=== PATIENT | male | born 1960 | race Caucasian/White ===

== ENCOUNTER 2023-01-29 08:37 | Outpatient (AMB) | payer MEDICARE, MEDICAID, SELFPAY ==
--- NOTE | 2023-01-29 08:40 | A.OFFVIS_ITS ---
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 Patient reports pain fell about 10 feet on right side ~2010. He was suppose to have surgery on his left shoulder but surgeon in [place] decided to not move forward due to heart condition. He is seen by pain management where he is prescribed oxycodone that provides him pain relief. The patient has is not interested in getting MRI or discussing the possibility of future surgeries. He states that he is too old to undergo surgery. He does not wish to go to formal physical therapy. The patient's questions whether I can recommend that he get more pain medicine . Allergies No Known Allergies [No Known Allergies*] Allergy (Unverified 12/24/19 16:44) [facility] Surgical History (Updated 01/29/23 @ 09:06 by HARIKA Vazquez) History of back surgery Social History (Updated 01/29/23 @ 09:05 by HARIKA Vazquez) Patient Tobacco Use Status: Current everyday Tobacco user Current occupational status: unemployed Physical Exam Extrem Other: Bilateral shoulder examination shows forward flexion to 160 degrees, external rotation to 40 degrees, internal rotation to level L2, 4+ out of 5 strength with supraspinatus testing, positive impingement signs, no instability Results Reviewed Results Reviewed: X-rays of the patient's bilateral shoulder show acromioclavicular joint narrowing, type 2 acromion, no acute bony abnormalities Assessment & Plan Assessment & Plan (1) Right shoulder pain: Code(s): M25.511 - Pain in right shoulder Plan: Mr. Cipriano Monique presents with bilateral shoulder pains due to impingement syndrome and rotator cuff tendinosis versus possible rotator cuff tearing. I had a lengthy discussion with patient regarding the treatment options. He is not interested in getting an MRI or discussing the possibility of surgery in the future. He does not wish to go to formal physical therapy. I did put in a referral to the Pain Management group here at [facility] per his request. I discussed with the patient's at length the fact that I do not p rescribe narcotic pain medicine for non operative problems and that I have no control over how much pain medicine is prescribed to him by another provider. That being said, I have no problem with the patient being continued on pain medicine if it gives him relief. Feel free to call me at any time should questions regarding his orthopedic management arise. I spent 22 minutes in reviewing the patient's records and imaging studies, seeing the patient and documenting in the medical record. (2) Left shoulder pain: Code(s): M25.512 - Pain in left shoulder Orders: Orders XR shoulder RT min 2V Today M25.511 - Pain in right shoulder XR shoulder LT min 2V Today M25.512 - Pain in left shoulder Referrals Pain Management Referral M25.511 - Pain in right shoulder, M25.512 - Pain in left shoulder, M54.2 - Cervicalgia, M54.50 - Low back pain, unspecified Coding Level of Care Code New Pt Level 2 (46601) Diagnoses Right shoulder pain M25.511 Left shoulder pain M25.512
== END 2023-01-29 09:26 | disposition home or self-care (01) ==
PROVIDERS: PCP Internal Medicine Geriatric Medicine; Visit Provider Orthopaedic Surgery
DX: M25.511 Pain in right shoulder (principal); M25.512 Pain in left shoulder
CPT/HCPCS: 99202

== ENCOUNTER 2023-01-29 17:15 | Outpatient (REF) | payer MEDICARE, MEDICAID, SELFPAY ==
--- NOTE | ~2023-01-29 | XR_ITS ---
EXAMINATION: XR SHOULDER, LEFT CLINICAL INFORMATION: Pain in left shoulder COMPARISON: None available. TECHNIQUE: AP external rotation, Grashey, scapular Y, and axillary views of the left shoulder. FINDINGS: The bones and soft tissues are normal. No fracture. Glenohumeral and acromioclavicular alignment is anatomic with normal joint space. No abnormal soft tissue calcifications. XR/XR shoulder LT min 2V IMPRESSION: Normal left shoulder.
--- NOTE | ~2023-01-29 | XR_ITS ---
EXAMINATION: XR SHOULDER, RIGHT CLINICAL INFORMATION: Right shoulder pain COMPARISON: None available. TECHNIQUE: 2 views of right shoulder including neutral and Y view. FINDINGS: There are mild degenerative changes in the right glenohumeral joint with subchondral sclerosis and marginal spurring of the glenoid. There are mild changes of osteoarthritis of the right acromioclavicular joint with spurring. There is no fracture or dislocation. XR/XR shoulder RT min 2V IMPRESSION: Mild degenerative changes
== END 2023-01-29 17:16 | disposition home or self-care (01) ==
LOC: HO.HOSX 17:15
PROVIDERS: Visit Provider Orthopaedic Surgery
DX: M25.511 Pain in right shoulder (principal); M25.512 Pain in left shoulder
CPT/HCPCS: 73030; 99202

== ENCOUNTER 2023-03-14 09:10 | Outpatient (REF) | payer MEDICARE, MEDICAID, SELFPAY ==
[2023-03-14 11:30] LABS: MANUAL DIFF FLAG NO
[2023-03-14 11:44] LABS: Basophils Absolute Auto 0.1 X10*3/uL (0.0-0.2); Basophils Percent Auto 0.4 % (0-2); Eosinophils Absolute Auto 0.3 X10*3/uL (0.0-0.4); Eosinophils Percent Auto 2.4 % (0-4); Hematocrit 40.1 % (42.0-52.0); Hemoglobin 13.4 g/dl (14.0-18.0); Imm Gran Abs Auto 0.05 X10*3/uL (0.00-0.03); Imm Gran Pct Auto 0.4 % (0.0-0.4); Lymphocytes Absolute Auto 4.5 X10*3/uL (1.2-4.9); Lymphocytes Percent Auto 34.8 % (20-40); Mean Corpuscular HGB Conc 33.4 g/dl (31.0-36.0); Mean Corpuscular Hemoglobin 29.5 pg (27.0-33.0); Mean Corpuscular Volume 88.3 fL (80.0-98.0); Mean Platelet Volume 9.8 fL (9.4-12.4); Monocytes Absolute Auto 0.9 X10*3/uL (0.1-1.2); Platelet Count 414 X10*3/uL (160-400); Red Blood Count 4.54 X10*6/uL (4.60-5.80); Red Cell Distribution Width 12.1 % (11.0-16.0); White Blood Count 12.8 X10*3/uL (4.8-10.8)
[2023-03-14 12:20] LABS: Creatinine Urine 47.56 mg/dL; Microalbum/Creatinine Ratio Ur 121.9 ug/mg cr (<30)
[2023-03-14 12:31] LABS: Vitamin B12 520 pg/mL (200-900)
[2023-03-14 12:36] LABS: Alanine Aminotransferase 21 U/L (0-40); Albumin Level 4.2 g/dL (3.5-5.0); Alkaline Phosphatase 64 U/L (39-117); Anion Gap 12 (12-20); Aspartate Amino Transferase 21 U/L (5-37); Bilirubin Total 0.4 mg/dL (0.0-1.0); Blood Urea Nitrogen 9 mg/dL (9-16); Calcium 9.5 mg/dL (8.4-10.2); Carbon Dioxide 25 mmol/L (22-29); Chloride 106 mmol/L (96-108); Cholesterol 121 mg/dL (<200); Estimated Glomerular Filt Rate > 60; Glucose Random 126 mg/dL (60-115); HDL Cholesterol 36 mg/dL (>40); LDL Cholesterol Calculated 54 mg/dL (<100); Sodium 139 mmol/L (135-145); Total Protein 7.1 g/dL (6.5-8.0); Triglycerides 156 mg/dL (<150)
== END 2023-03-14 09:11 | disposition home or self-care (01) ==
LOC: HO.HHCL 09:10
PROVIDERS: Visit Provider Internal Medicine Geriatric Medicine
DX: E11.59 Type 2 diabetes mellitus with other circulatory complications (principal); M25.511 Pain in right shoulder; M25.512 Pain in left shoulder; G89.29 Other chronic pain; I25.10 Atherosclerotic heart disease of native coronary artery without angina pectoris; I25.2 Old myocardial infarction
CPT/HCPCS: 36415; 80053; 80061; 82043; 82570; 82607; 85025

== ENCOUNTER → 2023-04-18 07:32 | Outpatient (BNV) | payer MEDICARE, MEDICAID, SELFPAY | PROVIDERS: Visit Provider Internal Medicine Medical Oncology | DX: C64.2 Malignant neoplasm of left kidney, except renal pelvis (principal); D64.9 Anemia, unspecified | CPT/HCPCS: 99204; 99213 ==

== ENCOUNTER 2023-08-26 17:35 | Outpatient (REF) | payer MEDICARE, MEDICAID, SELFPAY ==
[2023-08-26 18:36] LABS: Oxycodone Screen Urine Not Detected (Not Detect)
[2023-08-30 15:30] LABS: Fentanyl, Ur 7.6; Norfentanyl, Ur 99.6
== END 2023-08-26 17:36 | disposition home or self-care (01) ==
LOC: HO.HHCLNP 17:35
PROVIDERS: Visit Provider Internal Medicine Geriatric Medicine
DX: M54.50 Low back pain, unspecified (principal); G89.29 Other chronic pain
CPT/HCPCS: 80307; 80354

== ENCOUNTER 2023-12-04 08:42 | Outpatient (REF) | payer MEDICARE, MEDICAID, SELFPAY ==
[2023-12-04 11:14] LABS: MANUAL DIFF FLAG NO
[2023-12-04 11:30] LABS: Basophils Absolute Auto 0.1 X10*3/uL (0.0-0.2); Basophils Percent Auto 0.6 % (0-2); Eosinophils Absolute Auto 0.3 X10*3/uL (0.0-0.4); Eosinophils Percent Auto 3.4 % (0-4); Hematocrit 34.9 % (42.0-52.0); Hemoglobin 11.7 g/dl (14.0-18.0); Imm Gran Abs Auto 0.02 X10*3/uL (0.00-0.03); Imm Gran Pct Auto 0.2 % (0.0-0.4); Lymphocytes Absolute Auto 3.9 X10*3/uL (1.2-4.9); Lymphocytes Percent Auto 47.1 % (20-40); Mean Corpuscular HGB Conc 33.5 g/dl (31.0-36.0); Mean Corpuscular Hemoglobin 29.3 pg (27.0-33.0); Mean Corpuscular Volume 87.5 fL (80.0-98.0); Mean Platelet Volume 9.9 fL (9.4-12.4); Monocytes Absolute Auto 0.8 X10*3/uL (0.1-1.2); Monocytes Percent Auto 9.2 % (2-11); Neutrophils Absolute Auto 3.3 x10*3/uL (2.0-8.3); Neutrophils Percent Auto 39.5 % (45-73); Platelet Count 335 X10*3/uL (160-400); Red Blood Count 3.99 X10*6/uL (4.60-5.80); Red Cell Distribution Width 12.3 % (11.0-16.0); White Blood Count 8.4 X10*3/uL (4.8-10.8)
[2023-12-04 11:56] LABS: Alanine Aminotransferase 14 U/L (0-40); Albumin Level 3.9 g/dL (3.5-5.0); Alkaline Phosphatase 62 U/L (39-117); Anion Gap 11 (12-20); Aspartate Amino Transferase 16 U/L (5-37); Bilirubin Total 0.4 mg/dL (0.0-1.0); Blood Urea Nitrogen 8 mg/dL (9-16); Calcium 9.8 mg/dL (8.4-10.2); Carbon Dioxide 29 mmol/L (22-29); Chloride 104 mmol/L (96-108); Cholesterol 126 mg/dL (<200); Estimated Glomerular Filt Rate > 60; Glucose Random 96 mg/dL (60-115); HDL Cholesterol 37 mg/dL (>40); LDL Cholesterol Calculated 71 mg/dL (<100); Potassium 4.1 mmol/L (3.3-5.1); Sodium 140 mmol/L (135-145); Total Protein 6.5 g/dL (6.5-8.0); Triglycerides 91 mg/dL (<150)
[2023-12-04 12:07] LABS: Creatinine Urine 40.59 mg/dL
== END 2023-12-04 08:43 | disposition home or self-care (01) ==
LOC: HO.HHCL 08:42
PROVIDERS: Visit Provider Internal Medicine Geriatric Medicine
DX: E11.69 Type 2 diabetes mellitus with other specified complication (principal); I10 Essential (primary) hypertension; I25.10 Atherosclerotic heart disease of native coronary artery without angina pectoris; I25.2 Old myocardial infarction
CPT/HCPCS: 36415; 80053; 80061; 82043; 82570; 85025

== ENCOUNTER 2024-02-07 09:46 | Outpatient (REF) | payer MEDICARE, SELFPAY ==
[2024-02-07 12:21] LABS: Anion Gap 11 (12-20); Blood Urea Nitrogen 7 mg/dL (9-16); Calcium 9.7 mg/dL (8.4-10.2); Carbon Dioxide 28 mmol/L (22-29); Chloride 107 mmol/L (96-108); Estimated Glomerular Filt Rate > 60; Glucose Random 118 mg/dL (60-115); Potassium 4.6 mmol/L (3.3-5.1); Sodium 141 mmol/L (135-145)
== END 2024-02-07 09:47 | disposition home or self-care (01) ==
LOC: HO.HHCL 09:46
PROVIDERS: Visit Provider Internal Medicine Geriatric Medicine
DX: I10 Essential (primary) hypertension (principal); E11.69 Type 2 diabetes mellitus with other specified complication
CPT/HCPCS: 36415; 80048

== ENCOUNTER 2024-02-13 15:34 | Outpatient (REF) | payer MEDICARE, SELFPAY ==
--- NOTE | ~2024-02-13 | XR_ITS ---
EXAMINATION: XR SHOULDER, RIGHT CLINICAL INFORMATION: Right shoulder pain. COMPARISON: Right shoulder radiographs dated 01/29/2023. TECHNIQUE: AP external rotation, Grashey, scapular Y, and axillary views of the right shoulder. FINDINGS: Moderate acromioclavicular and mild glenohumeral osteoarthritis, similar when compared to the prior examination. Small lateral subacromial spurs are unchanged. No acute fracture or dislocation. No concerning lytic or blastic osseous lesion. XR/XR shoulder RT min 2V IMPRESSION: 1. Moderate acromioclavicular and mild glenohumeral osteoarthritis, similar when compared to the prior examination. 2. Small lateral subacromial spurs, unchanged. Electronically signed by: Yan White MD 02/14/2024 10:08 AM EDGAR RAMOS
== END 2024-02-13 15:35 | disposition home or self-care (01) ==
LOC: HO.HHCX 15:34
PROVIDERS: Visit Provider Nurse Practitioner
DX: M25.511 Pain in right shoulder (principal)
CPT/HCPCS: 73030

== ENCOUNTER 2024-07-08 08:18 | Outpatient (REF) | payer MEDICARE, SELFPAY ==
[2024-07-08 11:29] LABS: MANUAL DIFF FLAG NO
[2024-07-08 11:30] LABS: Basophils Absolute Auto 0.1 X10*3/uL (0.0-0.2); Basophils Percent Auto 0.8 % (0-2); Eosinophils Absolute Auto 0.4 X10*3/uL (0.0-0.4); Eosinophils Percent Auto 4.4 % (0-4); Hematocrit 36.6 % (42.0-52.0); Hemoglobin 12.6 g/dl (14.0-18.0); Imm Gran Abs Auto 0.02 X10*3/uL (0.00-0.03); Imm Gran Pct Auto 0.2 % (0.0-0.4); Lymphocytes Absolute Auto 3.4 X10*3/uL (1.2-4.9); Lymphocytes Percent Auto 39.7 % (20-40); Mean Corpuscular HGB Conc 34.4 g/dl (31.0-36.0); Mean Corpuscular Hemoglobin 29.4 pg (27.0-33.0); Mean Corpuscular Volume 85.3 fL (80.0-98.0); Mean Platelet Volume 9.8 fL (9.4-12.4); Monocytes Absolute Auto 0.7 X10*3/uL (0.1-1.2); Monocytes Percent Auto 8.3 % (2-11); Neutrophils Absolute Auto 3.9 x10*3/uL (2.0-8.3); Neutrophils Percent Auto 46.6 % (45-73); Platelet Count 360 X10*3/uL (160-400); Red Blood Count 4.29 X10*6/uL (4.60-5.80); Red Cell Distribution Width 12.4 % (11.0-16.0); White Blood Count 8.4 X10*3/uL (4.8-10.8)
[2024-07-08 11:37] LABS: Appearance Urine Clear; Color Urine Straw; Glucose Urine UA Negative (Negative); Leukocyte Esterase Urine Negative (Negative); Nitrite Urine Negative (Negative); Specific Gravity - Urine <= 1.005 (1.005-1.025); Urine Blood Negative (Negative); Urine Ketones Negative (Negative); Urine Protein Negative (Neg-Trace)
[2024-07-08 11:39] LABS: Bacteria Urine None Seen (None Seen); Hyaline Casts Urine 0-2 /LPF (0-2); RBC Urine 0-2 /HPF (0-2); Squamous Epithelial Cell Urine 0-2 /HPF (0-2); WBC Urine 0-5 /HPF (0-5)
[2024-07-08 12:17] LABS: Alanine Aminotransferase 16 U/L (0-40); Albumin Level 4.2 g/dL (3.5-5.0); Alkaline Phosphatase 79 U/L (39-117); Anion Gap 14 (12-20); Aspartate Amino Transferase 22 U/L (5-37); Bilirubin Total 0.2 mg/dL (0.0-1.0); Blood Urea Nitrogen 9 mg/dL (9-16); Calcium 9.9 mg/dL (8.4-10.2); Carbon Dioxide 28 mmol/L (22-29); Chloride 102 mmol/L (96-108); Cholesterol 213 mg/dL (<200); Estimated Glomerular Filt Rate > 60; Glucose Random 128 mg/dL (60-115); HDL Cholesterol 42 mg/dL (>40); LDL Cholesterol Calculated 123 mg/dL (<100); Potassium 5.2 mmol/L (3.3-5.1); Sodium 139 mmol/L (135-145); Total Protein 7.2 g/dL (6.5-8.0); Triglycerides 241 mg/dL (<150)
[2024-07-08 12:21] LABS: Prostate Specific Antigen 0.71 ng/mL (<0.05-4.0)
== END 2024-07-08 08:19 | disposition home or self-care (01) ==
LOC: HO.HHCL 08:18
PROVIDERS: Internal Medicine Medical Oncology; Visit Provider Internal Medicine Geriatric Medicine
DX: C64.2 Malignant neoplasm of left kidney, except renal pelvis (principal); E11.59 Type 2 diabetes mellitus with other circulatory complications; K59.03 Drug induced constipation; R30.0 Dysuria; N40.1 Benign prostatic hyperplasia with lower urinary tract symptoms; R39.16 Straining to void; Z12.5 Encounter for screening for malignant neoplasm of prostate
CPT/HCPCS: 36415; 80053; 80061; 81001; 84153; 85025

== ENCOUNTER 2024-07-09 15:16 | Outpatient (REF) | payer MEDICARE, SELFPAY ==
--- NOTE | ~2024-07-09 | US_ITS ---
EXAMINATION: US BLADDER HISTORY: BPH, symptoms of urinary retention. Please check post void residual COMPARISON: There are no prior studies for comparison. FINDINGS: Sonographic examination of the urinary bladder was performed before and after voiding. Before voiding, the urinary bladder measured 18.6 x 11.9 x 15.6, for an estimated volume pl7471 mL. After voiding, the urinary bladder measured 16.9 x 8.4 x 13.9, for an estimated volume of 1035 mL. No intrinsic bladder abnormality is identified. Bilateral ureteral jets are identified. The prostate is not well visualized. US/US bladder IMPRESSION: Post void bladder residual of 1035 mL. No intrinsic bladder abnormality is seen. The prostate is poorly visualized. Electronically signed by: Dennys Frances MD 07/10/2024 07:48 AM EDT
== END 2024-07-09 15:17 | disposition home or self-care (01) ==
LOC: HO.US 15:16
PROVIDERS: Visit Provider Internal Medicine Geriatric Medicine
DX: R30.0 Dysuria (principal); N40.1 Benign prostatic hyperplasia with lower urinary tract symptoms; R39.16 Straining to void
CPT/HCPCS: 76857

== ENCOUNTER → 2024-07-09 15:19 | Outpatient (BNV) | payer MEDICARE, SELFPAY | PROVIDERS: Visit Provider Radiology Diagnostic Radiology | DX: R39.14 Feeling of incomplete bladder emptying (principal) | CPT/HCPCS: 76857 ==

== ENCOUNTER 2024-09-15 10:34 | Outpatient (AMB) | payer MEDICARE, OTHER, SELFPAY ==
--- NOTE | 2024-09-15 10:53 | A.OFFVIS_ITS ---
Intake Visit Reasons: BPH/ incomplete bladder emptying Intake Note: New Patient presents for initial visit for BPH and incomplete bladder emptying Urology Medications: Finasteride, Tamsulosin Blood Thinner: Clopidogrel PVR: 963ml's Globe Changer Required: No Accompanied by: Self / Same As Patient Allergies No Known Allergies [No Known Allergies*] Allergy (Unverified 09/15/24 11:07) HPI Comments Details: Vernon is a 64-year-old male patient of Dr. Wood. He has a past medical history of VA, hypertension, fibromyalgia, coronary artery disease and cancer of left kidney. He presents to the office today as a new patient for incomplete bladder emptying. In discussion with the patient today he reports a longstanding history of urological issues and had previously followed up with [facility] Dr. Raymond. He reports being on Flomax and finasteride for many years. He recently followed up with his PCP in discussed ongoing urinary issues at which time a bladder ultrasound was ordered and performed and patient was noted to have increased postvoid residual in urology referral was made for further assessment evaluation. In office urinalysis results reviewed with the patient today. PVR 963 mL. Recent bladder ultrasound results reviewed with the patient today 07/31 sonographic examination of the urinary bladder was performed before and after voiding. Pre void bladder volume was approximately 1800 mL. Postvoid bladder volume is approximately a 1000 mL. The prostate was poorly visualized. PSA 07/31 0.7. KERRI was performed smooth and no suspicious nodules were palpated. We discussed at length potential causes and further treatment options of incomplete bladder emptying/urinary retention. We discussed indwelling Weller catheter versus CIC however patient adamantly refuses despite Education regarding potential causes of incomplete bladder emptying/urinary retention. He does report feeling feelings of incomplete bladder emptying and bladder pressure. He otherwise denies urinary urgency, urinary frequency, incontinence, nocturia, hematuria, dysuria, foul smelling flank pain, fever, and or chills. We discussed signing medical release form to obtain previous urological records for continuity of care. He discusses at length his longstanding history of incomplete bladder emptying and has been managed with medications and wishes to proceed with this treatment option. All questions were answered. He otherwise offers no other issues or concerns at this time. In review of patient's chart it appears scanned MRI 12/29 noted expected treatment changes into left interpolar ablation cavities without evidence of reoccurrence. Several bilateral renal cysts again noted. [facility] Medical History Abnormal colonoscopy (~03/03/18) Myocardial infarction High blood pressure Fibromyalgia Cancer of left kidney CAD (coronary artery disease) Surgical History History of back surgery Family History Mother CAD (coronary artery disease) Social History Household Members: Family and None Patient Tobacco Use Status: Current everyday Tobacco user service: No Current occupational status: unemployed and retired Review of Systems Const All systems reviewed & are unremarkable except as noted in HPI and below Physical Exam Const General: cooperative, healthy appearing, comfortable, no acute distress, well developed, alert and awake Nutritional Appearance: overweight Orientation/consciousness: patient oriented x3 Limitations: no limitations HEENT Head: Yes normal to inspection, Yes normocephalic and Yes atraumatic Ears: hearing grossly normal bilaterally Eyes General: appearance normal, both eyes and all related structures Neck Neck: Yes normal visual inspection and Yes trachea midline Chest Chest palpation & inspection: normal inspection of the chest Resp Effort & Inspection: normal respiratory effort and able to speak in complete sentences Cardio Rate: regular rate GI Inspection: Yes normal to inspection General: Yes no CVA tenderness Back/Spine/Pelvis Back: no CVA tenderness Skin General skin exam: no rashes or lesions noted Neuro General: patient oriented x3 Extrem General: Yes normal to inspection Psych Appearance: grossly normal and well kempt Mental Status: mental status grossly normal Speech and movement: Normal speech and movement present and Clear speech present Affect: normal affect Attitude: cooperative Thought process: Normal thought process present Thought content: Normal thought content present Insight: Fair insight present (Psych) Judgement: Fair judgement present (Psych) Office Procedures Post Void Residual Post Residual Void Post Void Residual (PVR): 963 01900-Myub Void Residual by ultrasound Results AMB Urinalysis, Automated UA Leukoctes 0 Betsy/uL Last Edit by Kandydino Nicholsonsenia, [facility] on 09/15/24 11:25 UA Nitrite Last Edit by Reid Nicholson, [facility] on 09/15/24 11:25 UA Urobilinogen 0.2 mg/dL Last Edit by Reid Lyn, [facility] on 09/15/24 11:2 5 UA Protein 15 mg/dL [facility] on 09/15/24 11:25 UA pH 6.5 Last Edit by Pierodino Lyn, [facility] on 09/15/24 11:25 UA Blood 0 Preston/uL Last Edit by [facility] Lyn, [facility] on 09/15/24 11:25 UA Specific [place] 1.005 Last Edit by Reid Nicholson, [facility] on 09/15/24 11: 25 UA Ketone Last Edit by Reid [facility], [facility] on 09/15/24 11:25 UA Bilirubin 0 mg/dL Last Edit by CoverMedino [facility], [facility] on 09/15/24 11:25 UA Glucose 0 mg/dL Last [facility], [facility] on 09/15/24 11:25 Results Reviewed Results Reviewed: Laboratory Last Values Urine pH (Auto) 6.5 09/15/24 11:09 Specific [place] (Auto) 1.005 09/15/24 11:09 Urine Protein (Auto) 15 mg/dL 09/15/24 11:09 Glucose (UA)(Auto) 0 mg/dL 09/15/24 11:09 Urine Blood (Auto) 0 Preston/uL 09/15/24 11:09 Urine Bilirubin (Auto) 0 mg/dL 09/15/24 11:09 Urine Urobilinogen (Auto) 0.2 mg/dL 09/15/24 11:09 Leukocyte Esterase (Auto) 0 Betsy/uL 09/15/24 11:09 Date of Service: 07/09/24 Procedure(s): US bladder FINDINGS: Sonographic examination of the urinary bladder was performed before and after voiding. Before voiding, the urinary bladder measured 18.6 x 11.9 x 15.6, for an estimated volume qm3101 mL. After voiding, the urinary bladder measured 16.9 x 8.4 x 13.9, for an estimated volume of 1035 mL. No intrinsic bladder abnormality is identified. Bilateral ureteral jets are identified. The prostate is not well visualized. IMPRESSION: Post void bladder residual of 1035 mL. No intrinsic bladder abnormality is seen. The prostate is poorly visualized. Assessment & Plan Assessment & Plan (1) Incomplete bladder emptying: Code(s): R33.9 - Retention of urine, unspecified Category: Medical (2) Urinary retention: Code(s): R33.9 - Retention of urine, unspecified Category: Medical (3) Cancer of left kidney: Code(s): C64.2 - Malignant neoplasm of left kidney, except renal pelvis Category: Medical Plan In office urinalysis results reviewed with the patient today; as noted above. PVR 963 mL We discussed at length incomplete bladder emptying; we discussed potential causes as well as further treatment options. Continue finasteride. Stop Flomax. Start terazosin as discussed and prescribed. Recent bladder imaging results reviewed with the patient today; as noted above. Recent PSA results reviewed with the patient today; as noted above. KERRI performed; as noted above. We discussed further treatment options of incomplete bladder emptying to include CIC verses indwelling Weller catheter given increased postvoid residual however patient declines at this time. We did discuss affects of not doing so and he understands potential worsening symptoms Follow-up with nursing in 2 weeks for PVR Will obtain renal ultrasound We discussed obtaining medical release form to obtain previous urology records for continuity of care. Follow-up with provider in 3 months with imaging to be completed prior; or sooner with any issues, concerns, and or questions Orders: Orders AMB Post Void Residual by ultrasound Today Z13.9 - Encounter for screening, unspecified AMB Urinalysis Automated Today Z13.9 - Encounter for screening, unspecified US renal BI Today C64.2 - Malignant neoplasm of left kidney, except renal pelvis Medications: New terazosin 5 mg PO BEDTIME 30 days 30 caps 1RF N40.1 - Benign prostatic hyperplasia with lower urinary tract symptoms, R35.0 - Frequency of micturition Patient Instructions: The patient had an opportunity to ask questions regarding the treatment plan. All questions were answered. Physical exam, labs, and imaging were discussed and reviewed in detail. As well as risks, benefits, and discussion of treatment choices. No major barriers to understanding were identified. The patient expressed understanding and agreement with the above treatment plan. The patient was made aware they should contact our office by phone for worsening of their current condition, the appearance of new symptoms, or with any questions or concerns. Compliance is encouraged with any medications and follow up testing that is ordered. It is a privilege to be allowed the opportunity to participate in? your urological care.? Again, if you have any questions or concerns If you have any questions or concerns please do not hesitate to contact me. The office is [phone]. This note is constructed using voice recognition software. While every effort has been made to ensure accuracy hair preparer errors may have been included. Yours sincerely, SARAN Beard- Coding Level of Care Code New Pt Level 4 (82304) Diagnoses Incomplete bladder emptying R33.9 Urinary retention R33.9 Cancer of left kidney C64.2 CPT Codes Post Residual Void - PVR CPT Code: 43206-Qxir Void Residual by ultrasound ([id number])
--- OUTSIDE RECORDS SUMMARY | 2024-09-15 12:23 | XMS_ITS | Encounter Summary ---
Author Organization [employer] Address [address] [facility] [place] [address] Care Team Providers Care Lacquer Pin Press Operator Name Role Phone Name, Isacc LOJA Primary Care Provider [phone] Reason for Visit * Reason Onset Date Comments Pain med, suboxone, CRS Dept 10/28/2023 Encounter Details Date Type Department Care Team ([facility] st Contact Info) Description 10/28/2023 Telephone [facility] [address] [place], [place] [phone] Name, MD Isacc [address] [place] [address] Pain med, suboxone, CRS Dept Social History Tobacco Use Types Packs/Day Years Used Date Smoking Tobacco: Every Day Cigarettes 0.3 44 Smokeless Tobacco: Never Alcohol Use Standard Drinks/Week Comments Not Currently 0 (1 standard drink = 0.6 oz pur e alcohol) Depression Answer Date Recorded Patient Health Questionnaire-9 Score 0 08/08/2023 Patient Health Questionnaire-9 Score 0 08/08/2023 Last PHQ-9: Questionnaire Data Not on file 0 08/08/2023 Housing Stability Answer Date Recorded What is your housing situation today? I have tarun galdamez 01/24/[address] you li ve. Do you have problems with any of the following? None of the above 01/24/2023 Food Insecurity Answer Date Recorded Within the past 12 months, y ou worried that your food would run out before you got money to buy more: Never True 01/25/2023 Within the past 12 months,th e food you bought just didn't last and you didn't have enough money to get more: Never True Transportation Answer Date Recorded In the past 12 months, has l ack of transportation kept you from medical appts, meetings, work or from getting things needed for daily living? No 01/24/2023 Utilities Answer Date Recorded In the past 12 months, has t he electric, gas, oil or water company threatened to shut off services in your home? No 01/24/2023 Depression Answer Date Recorded Patient Health Questionnaire-2 Score 0 08/08/2023 Sex and Gender Information Value Date Recorded Sex Assigned at Male 02/05/2022 10:15 AM EDT Legal Sex Male 10:15 AM EDT Gender Identity Male 02/05/2022 10:15 AM EDT Sexual Orientation Straight 02/05/2022 10 :15 AM EDT documented as of this encounter Miscellaneous Notes * Telephone Encounter - Peggy Sarmiento RN - 10/28/2023 12:12 PM EDT Per discussion with PCP, PCP will not continue to prescribe percocet like patient had been receiving. TC via P/I#[id number], reviewed with patient that CRS department has been trying to reach patient to discuss suboxone further. Explained that his PCP will not continue prescribing his Percocet as before.Patient was advised to take call from CRS Makenna when she calls him today. Patient stated he would take the call. L/M for Makenna on her voicemail requesting she call patient back. * Telephone Encounter - Enma Chase - 10/28/2023 12:04 PM EDT TC from pt requesting medication refill. Medications needing refill : oxyCODONE-acetaminophen (Percocet) 5-325 MG tablet To be sent to: [facility]/pharmacy #[id number] - [place], [place] - [facility] to [place] 10/29/23. documented in this encounter Plan of Treatment Upcoming Encounters Date Type Department Care Team (Late st Contact Info) Description 09/18/2024 9:15 AM EDT Office Visit [facility] [address] [place] [phone] Grant Ashley MD [address] [place] [phone] 10/23/2024 9:15 AM EDT Office Visit [address] [address] Name, MD Isacc [address] [place] [phone] 11/13/2024 9:00 AM EDT Office Visit [address] [address] Grant Ashley MD [address] [place] [phone] documented as of this encounter Visit Diagnoses Not on filedocumented in this encounter Additional Health Concerns Assessment Noted Time PHQ-9 Depression Total Score: 0 08/08/19 24 9:27 AM EDT documented as of this encounter Care Teams Lacquer Pin Press Operator Relationship Specialty Start Date End Date NameIsacc MD [address] [place] [phone] PCP - General Family Medicine 11/03/18 documented as of this encounter
== END 2024-09-15 11:42 | disposition home or self-care (01) ==
PROVIDERS: PCP Internal Medicine Geriatric Medicine; Visit Provider Nurse Practitioner Family
DX: R33.9 Retention of urine, unspecified (principal); C64.2 Malignant neoplasm of left kidney, except renal pelvis; Z13.9 Encounter for screening, unspecified
CPT/HCPCS: 99204

== ENCOUNTER → 2024-09-15 10:34 | Outpatient (BNVA) | payer MEDICARE, SELFPAY | PROVIDERS: PCP Internal Medicine Geriatric Medicine; Visit Provider Nurse Practitioner Family | DX: R33.9 Retention of urine, unspecified (principal); C64.2 Malignant neoplasm of left kidney, except renal pelvis | CPT/HCPCS: 51798; 81003; 99202 ==

== ENCOUNTER → 2024-09-30 09:34 | Outpatient (BNVA) | payer MEDICARE, SELFPAY | PROVIDERS: PCP Internal Medicine Geriatric Medicine; Visit Provider Urology | DX: R33.9 Retention of urine, unspecified (principal) | CPT/HCPCS: 51798 ==

== ENCOUNTER 2024-10-07 09:45 | Outpatient (REF) | payer MEDICARE, SELFPAY ==
--- OUTSIDE RECORDS SUMMARY | 2024-10-07 10:07 | XMS_ITS | Encounter Summary ---
Author Organization [employer] Address [address] [facility] [address] [place] [address] Care Team Providers Care Wind Field Manager Name Role Phone Name, Isacc LOJA Primary Care Provider [phone] Reason for Visit * Reason Onset Date Comments Pain med, suboxone, CRS Dept 10/28/2023 Encounter Details Date Type Department Care Team ([facility] st Contact Info) Description 10/28/2023 Telephone [facility] [address] [place], [place] [phone] Name, MD Isacc [address] [place] [address] Pain med, suboxone, CRS Dept Social History [...] like patient had been receiving. TC via P/I#[id number], reviewed with patient that CRS department has [...] 5-325 MG tablet To be sent to: [facility]/pharmacy #[id number] - [place], [place] - [facility] to [place] 10/29/23. documented in this encounter Plan of Treatment Upcoming Encounters Date Type Department Care Team (Late st Contact Info) Description 10/08/2024 1:30 PM EDT Telemedicine [facility] [place] [address] 10/23/2024 9:15 AM EDT Office Visit [address] [address] [place] [address] 12/11/2024 9:00 AM EDT Office Visit [facility] [place] [address] [place] [address] documented as of this encounter Visit Diagnoses Not on filedocumented in this encounter Additional Health Concerns Assessment Noted Time PHQ-9 Depression Total Score: 0 08/08/19 24 9:27 AM EDT documented as of this encounter Care Teams Wind Field Manager Relationship Specialty Start Date End Date Isacc Wood MD [address] [place] [id number] PCP - General Family Medicine 11/03/18 documented as of this encounter
[2024-10-07 12:35] LABS: Alanine Aminotransferase 15 U/L (0-40); Albumin Level 3.9 g/dL (3.5-5.0); Alkaline Phosphatase 87 U/L (39-117); Anion Gap 14 (12-20); Aspartate Amino Transferase 22 U/L (5-37); Blood Urea Nitrogen 9 mg/dL (9-16); Calcium 9.0 mg/dL (8.4-10.2); Carbon Dioxide 24 mmol/L (22-29); Chloride 102 mmol/L (96-108); Estimated Glomerular Filt Rate > 60; Potassium 4.2 mmol/L (3.3-5.1); Sodium 136 mmol/L (135-145); Total Protein 6.5 g/dL (6.5-8.0)
== END 2024-10-07 09:46 | disposition home or self-care (01) ==
LOC: HO.HHCL 09:45
PROVIDERS: PCP Internal Medicine Geriatric Medicine; Visit Provider Internal Medicine Geriatric Medicine
DX: E11.59 Type 2 diabetes mellitus with other circulatory complications (principal); K59.03 Drug induced constipation; R30.0 Dysuria; N40.1 Benign prostatic hyperplasia with lower urinary tract symptoms; R39.16 Straining to void
CPT/HCPCS: 36415; 80053

== ENCOUNTER 2024-12-01 08:02 | Outpatient (REF) | payer MEDICARE, OTHER, SELFPAY ==
--- NOTE | ~2024-12-01 | US_ITS ---
CLINICAL HISTORY: C64.2 - Malignant neoplasm of left kidney, except renal pelvis US of kidneys Comparison: None provided Findings: Right kidney is normal in size, echogenicity and morphology, 11.5 cm in length. No calculus or hydronephrosis. 3 avascular cortical cysts at interpolar region 0.9 cm, 1.5 cm and 1.3 cm respectively. Avascular hyperechoic cortical mass without shadowing in the interpolar region adjacent to the cyst 7 x 8 x 8 mm, may reflect angiomyolipoma. Left kidney is normal in size, echogenicity and morphology, 10.9 cm in length. No calculus or hydronephrosis. Upper pole avascular cysts 1.9 cm and 1.4 cm. At the interpolar region, there is exophytic mass with mixed echogenicity and small central cystic component, no internal vascular flow, mildly increased through transmission, 1.9 x 1.5 x 2.1 cm. Limited color Doppler demonstrates unremarkable bilateral blood flow. Impression: 1. Left renal indeterminate solid cystic mass at the interpolar region, per humanities instructor note, this is at the site of prior cryoablation, no previous relevant exam is available to compare, recommend comparison with previous exam if available, otherwise renal MRI or CT would be helpful for further evaluation. 2. 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 3. Bilateral renal cortical cysts. This document has been electronically signed by: Kim Ansari MD on 12/01/2024 16:00:54
--- OUTSIDE RECORDS SUMMARY | 2024-12-01 08:08 | XMS_ITS | Encounter Summary ---
Author Organization [employer] Address [address] [facility] [address] 7t [place] [address] Care Team Providers Care Iron Pellet Tester Name Role Phone Name, Isacc LOJA Primary Care Provider [phone] Encounter Details Date Type Department Care Team (Late st Contact Info) Description 11/12/2024 Orders Only [facility] [address] [place] [address] Elizabeth Munson, RN Social History Tobacco Use Types Packs/Day Years Used Date Smoking Tobacco: Every Day Cigarettes 0.3 44 Passive Smoke Exposure: Current Smokeless Tobacco: Never Alcohol Use Standard Drinks/Week Comments Not Currently 0 (1 standard drink = 0.6 oz pur e alcohol) Alcohol Answer Date Recorded Frequency of Alcohol Consumption Not on file 11/13/2023 Average Number of Drinks Not on file 024 Frequency of Binge Drinking Not on file 10/2023 Score 0 11/13/2023 Depression Answer Date Recorded Patient Health Questionnaire-9 Score 0 09/18/2024 Patient Health Questionnaire-9 Score 0 09/18/2024 Last PHQ-9: Questionnaire Data Not on file 0 09/18/2024 Housing Stability Answer Date Recorded What is your housing situation today? I have tarun galdamez 09/18/[address] you li ve. Do you have problems with any of the following? None of the above 09/18/2024 Food Insecurity Answer Date Recorded Within the past 12 months, y ou worried that your food would run out before you got money to buy more: Never True 09/18/2024 Within the past 12 months,th e food you bought just didn't last and you didn't have enough money to get more: Never True Transportation Answer Date Recorded In the past 12 months, has l ack of transportation kept you from medical appts, meetings, work or from getting things needed for daily living? No 09/18/2024 Utilities Answer Date Recorded In the past 12 months, has t he electric, gas, oil or water company threatened to shut off services in your home? No 09/18/2024 Depression Answer Date Recorded Patient Health Questionnaire-2 Score 0 09/18/2024 Internet Access Answer Date Recorded Internet Access Q1 Yes 09/18/2024 Internet Access Q2 Not on file 09/18/2024 Sex and Gender Information Value Date Recorded Sex Assigned at Male 02/05/2022 10:15 AM EDT Legal Sex Male 10:15 AM EDT Gender Identity Male 02/05/2022 10:15 AM EDT Sexual Orientation Straight 02/05/2022 10 :15 AM EDT documented as of this encounter Plan of Treatment Upcoming Encounters Date Type Department Care Team (Late st Contact Info) Description 12/11/2024 9:00 AM EDT Office Visit [facility] [address] [place] [address] Grant Ashley MD [address] [place] [address] 02/16/2025 2:30 PM EST Office Visit [address] [address] NameIsacc MD [address] [place] [address] documented as of this encounter Visit Diagnoses Not on filedocumented in this encounter Additional Health Concerns Assessment Noted Time PHQ-9 Depression Total Score: 0 09/19/19 25 9:22 AM EDT documented as of this encounter Care Teams Iron Pellet Tester Relationship Specialty Start Date End Date Name, MD Isacc [address] [place] [address] PCP - General Family Medicine 11/03/18 documented as of this encounter
--- OUTSIDE RECORDS SUMMARY | 2024-12-01 08:08 | XMS_ITS | Encounter Summary ---
Author Organization [employer] Address 75 [facility] 7t [place] [address] Care Team Providers Care Correctional Security Officer Name Role Phone Name, Isacc LOJA Primary Care Provider [phone] Reason for Visit * Reason Onset Date Comments requesting call back 11/03/2024 Encounter Details Date Type Department Care Team ([facility] st Contact Info) Description 11/03/2024 Telephone [facility] [address] [place] [address] Name, MD Isacc [address] [place] [address] requesting call back Social History Tobacco Use Types Packs/Day Years [...] encounter Miscellaneous Notes * Telephone Encounter - Enma Hay MA - 11/03/2024 1:33 PM EDT Pt called to informed he is admiited at [facility] . He will call back when he's recovery from His Heart Surgery on 11/04/2024. Sending to Dr. Dion EDGAR. * Telephone Encounter - Isacc Silva - 11/03/2024 1:13 PM EDT Tc from pt requesting a call back with the phone number of where he is going to get his surgery. Nofurther details provided. Contact pt at [phone] documented in this encounter Plan of Treatment Upcoming Encounters Date Type Department Care Team (Late st Contact Info) Description 12/11/2024 9:00 AM EDT Office Visit [facility] [address] [place] [address] Grant Ashley MD [address] [place] [address] 02/16/2025 2:30 PM EST Office Visit [facility] [address] [place] [address] Name, MD Isacc [address] [place] [address] documented as of this encounter Visit Diagnoses Not on filedocumented in this encounter Additional Health Concerns Assessment Noted Time PHQ-9 Depression Total Score: 0 09/19/19 25 9:22 AM EDT documented as of this encounter Care Teams Correctional Security Officer Relationship Specialty Start Date End Date Name, MD Isacc [address] [place] [address] PCP - General Family Medicine 11/03/18 documented as of this encounter
--- OUTSIDE RECORDS SUMMARY | 2024-12-01 08:08 | XMS_ITS | Encounter Summary ---
Author Organization [employer] Address [address] [facility] [address] 7t [place] [address] Care Team Providers Care Football Pad Repairer Name Role Phone Name, Isacc LOJA Primary Care Provider [phone] Encounter Details Date Type Department Care Team ([facility] st Contact Info) Description 11/03/2024 Telephone [facility] [address] [place], [place] [phone] Name, MD Isacc 230 [place], [place] [phone] Social History Tobacco Use Types Packs/Day Years [...] Description 12/11/2024 9:00 AM EDT Office Visit [facility] [address] [place] [address] Grant Ashley MD [address] [place] [address] 02/16/2025 2:30 PM EST Office Visit [address] [address] Name, MD Isacc [address] [place] [address] documented as of this encounter Visit Diagnoses Not on filedocumented in this encounter Additional Health Concerns Assessment Noted Time PHQ-9 Depression Total Score: 0 09/19/19 25 9:22 AM EDT documented as of this encounter Care Teams Football Pad Repairer Relationship Specialty Start Date End Date NameIsacc MD [address] [place] [address] PCP - General Family Medicine 11/03/18 documented as of this encounter
--- OUTSIDE RECORDS SUMMARY | 2024-12-01 08:08 | XMS_ITS | Encounter Summary ---
Author Organization [employer] Address [address] [facility] [address] 7t [place] [address] Care Team Providers Care Stationary Engineer Refrigeration Name Role Phone Name, Isacc LOJA Primary Care Provider [phone] Encounter Details Date Type Department Care Team (Late st Contact Info) Description 11/12/2024 Orders Only [facility] [address] [place] [address] Elizabeth Munson, RN Social History Tobacco Use [...] Description 12/11/2024 9:00 AM EDT Office Visit [facility] [address] [place] [address] Grant Ashley MD [address] [place] [address] 02/16/2025 2:30 PM EST Office Visit [address] [address] NameIsacc MD [address] [place] [address] documented as of this encounter Visit Diagnoses Not on filedocumented in this encounter Additional Health Concerns Assessment Noted Time PHQ-9 Depression Total Score: 0 09/19/19 25 9:22 AM EDT documented as of this encounter Care Teams Stationary Engineer Refrigeration Relationship Specialty Start Date End Date Name, MD Isacc [address] [place] [address] PCP - General Family Medicine 11/03/18 documented as of this encounter
--- OUTSIDE RECORDS SUMMARY | 2024-12-01 08:08 | XMS_ITS | Encounter Summary ---
Author Organization [employer] Address 75 [facility] 7t [place] [address] Care Team Providers Care Bottling Room Worker Name Role Phone Name, Isacc LOJA Primary Care Provider [phone] Reason for Visit * Reason Onset Date Comments FYI 11/18/2024 Encounter Details Date Type Department Care Team ([facility] st Contact Info) Description 11/18/2024 Telephone [facility] 230 [place] [address] Name, MD Isacc 230 [place] [address] FYI Social History Tobacco Use Types Packs/Day Years [...] encounter Miscellaneous Notes * Telephone Encounter - Gary Hay - 11/18/2024 4:02 PM EDT Tc from pt calling in regards to HDF visit stating he was prescribed Lorazepam and was advised to continue taking it. If any questions you can contact pt at [phone]. (Ukrainian Speaker) documented in this encounter Plan of Treatment Upcoming Encounters Date Type Department Care Team (Late st Contact Info) Description 12/11/2024 9:00 AM EDT Office Visit [facility] [address] [place] [address] Grant Ashley MD [address] [place] [address] 02/16/2025 2:30 PM EST Office Visit [address] [address] Name, MD Isacc [address] [place] [address] documented as of this encounter Visit Diagnoses Not on filedocumented in this encounter Additional Health Concerns Assessment Noted Time PHQ-9 Depression Total Score: 0 09/19/19 25 9:22 AM EDT documented as of this encounter Care Teams Bottling Room Worker Relationship Specialty Start Date End Date Name, MD Isacc [address] [place] [address] PCP - General Family Medicine 11/03/18 documented as of this encounter
--- OUTSIDE RECORDS SUMMARY | 2024-12-01 08:08 | XMS_ITS | Encounter Summary ---
Author Organization [employer] Address 75 [facility] 7t [place] [address] Care Team Providers Care Autism Specialist Name Role Phone Name, Isacc LOJA Primary Care Provider [phone] Reason for Visit * Reason Onset Date Comments Pain med, suboxone, CRS Dept 10/28/2023 Encounter Details Date Type Department Care Team (Late st Contact Info) Description 10/28/[address] [facility] 230 [place] [address] Name, MD Isacc [address] [place], [place] [phone] Pain med, suboxone, CRS Dept Social History [...] like patient had been receiving. TC via P/I#[id number], reviewed with patient that CRS department has [...] 5-325 MG tablet To be sent to: [facility]pharmacy #[id number] - [place] - [facility] States leaves on vacation tomorrow to [place] 10/29/23. documented in this encounter Plan of Treatment Upcoming Encounters Date Type Department Care Team (Late st Contact Info) Description 12/11/2024 9:00 AM EDT Office Visit [facility] [address] [place] [address] Grant Ashley MD [address] [place] [address] 02/16/2025 2:30 PM EST Office Visit [address] [address] Name, MD Isacc [address] [place] [address] documented as of this encounter Visit Diagnoses Not on filedocumented in this encounter Additional Health Concerns Assessment Noted Time PHQ-9 Depression Total Score: 0 08/08/19 24 9:27 AM EDT documented as of this encounter Care Teams Autism Specialist Relationship Specialty Start Date End Date NameIsacc MD [address] [place] [address] PCP - General Family Medicine 11/03/18 documented as of this encounter
--- OUTSIDE RECORDS SUMMARY | 2024-12-01 08:09 | XMS_ITS | Encounter Summary ---
Author Organization [employer] Address 75 [facility] 7t [place] [address] Care Team Providers Care Cylinder Machine Operator Pulp Drier Name Role Phone Name, Isacc LOJA Primary Care Provider [phone] Reason for Visit * Reason Onset Date Comments Nurse Triage 08/01/2023 Encounter Details Date Type Department Care Team ([facility] st Contact Info) Description 08/01/2023 Telephone [facility] 230 [place] [address] Name, MD Isacc [address] [place] [address] Nurse Triage Social History Tobacco Use Types Packs/Day Years Used Date Smoking Tobacco: Every Day Cigarettes 0.3 44 Smokeless Tobacco: Never Alcohol Use Standard Drinks/Week Comments Not Currently 0 (1 standard drink = 0.6 oz pur e alcohol) Depression Answer Date Recorded Patient Health Questionnaire-9 Score 6 03/21/2022 Housing Stability Answer Date Recorded What is [...] t he electric, gas, oil or water [employer] threatened to shut off services in your home? No 01/24/2023 Depression Answer Date Recorded Patient Health Questionnaire-2 Score 2 03/21/2022 Sex and Gender Information Value Date Recorded Sex Assigned at Male 02/05/2022 10:15 AM EDT Legal Sex Male 10:15 AM EDT Gender Identity Male 02/05/2022 10:15 AM EDT Sexual Orientation Straight 02/05/2022 10 :15 AM EDT documented as of this encounter Miscellaneous Notes * Telephone Encounter - Osiris Peters RN - 08/02/2023 2:19 PM EDT No recent notes in [facility] or [facility] for pt. T/C to pt for status check via [employer] #[id number]. Pt states he will not go to the ED. Pt reports that his symptoms continue. Pt c/o LBP and left knee cap pain with swelling. Pt rates pain at 5-6/10 when lying down and 8/10 with movement. Pt c/o slight urinary incontinence. Pt reports that knee swelling is improving with warm and cold compresses. Recommended that pt go to ED for evaluation and advise surgeon of symptoms. Pt reports that hissymptoms are not related to recent surgery. States that this happens 1-2 times per year. Pt states he is requesting a dose increase of Percocet. Recommended that pt discuss with pcp as upcoming appointment. * Telephone Encounter - Makenna Nobles RN - 08/01/2023 3:11 PM EDT Call to [facility], reports having lower back pain x 1 week. No injury or fall. 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 Per pt has appt on 08/05 has MRI and 08/07 has follow up with Dr. Black. Per pt having now having difficulty with passing urine. Also having urinary incontinence of new onset. Pt reports severe pain as well. Pt advised of disposition, agrees to return to [facility] ED now. Will contact EMS for transport. Sent to team for ER status check PRN. Protocol Used: Back Pain (Adult) Protocol-Based Disposition: Go to ED Now Positive Triage Questions: * Unable to urinate (or only a few drops) and bladder feels very full * Loss of bladder or bowel control (urine or bowel incontinence; wetting self, leaking stool) of new-onset * All higher-acuity triage questions were negative Care Advice Discussed: * Reasons To Call Back - You become worse * Telephone Encounter - Gary Hay - 08/01/2023 3:07 PM EDT Symptoms: Back Pain - Not From Injury, Leg Pain - Not From Injury, Neck Pain - Not From Injury Outcome: Talk to a nurse or provider within 15 minutes Reason: Can't walk (unless normally can't walk) Khmer Speaker (accepted aerial photograph interpreter) documented in this encounter Plan of Treatment Upcoming Encounters Date Type Department Care Team (Late st Contact Info) Description 12/11/2024 9:00 AM EDT Office Visit [facility] [address] [place] [address] Grant Ashley MD [address] [place] [address] 02/16/2025 2:30 PM EST Office Visit [address] [address] NameIsacc MD [address] [place] [address] documented as of this encounter Visit Diagnoses Not on filedocumented in this encounter Additional Health Concerns Assessment Noted Time PHQ-9 Depression Total Score: 6 03/21/20 22 10:54 AM EST documented as of this encounter Care Teams Cylinder Machine Operator Pulp Drier Relationship Specialty Start Date End Date Isacc Wood MD [address] [place] [address] PCP - General Family Medicine 11/03/18 documented as of this encounter
--- OUTSIDE RECORDS SUMMARY | 2024-12-01 08:09 | XMS_ITS | Encounter Summary ---
Author Organization [employer] Address [address] [facility] [address] 7t [place] [address] Care Team Providers Care Residential Monitor Name Role Phone Name, Isacc LOJA Primary Care Provider [phone] Encounter Details Date Type Department Care Team ([facility] st Contact Info) Description 02/05/2024 Telephone [facility] [address] [place], [place] [phone] Name, MD Isacc 230 [place], [place] [phone] Social History Tobacco Use Types Packs/Day Years [...] encounter Miscellaneous Notes * Telephone Encounter - Paola Hallman RN - 02/17/2024 2:08 PM EST Tc to pt via [facility] brim and crown presser services: [place] [phone] to do status check for right shoulder pain post discharge from [facility] on 02/14/24. Pt rates shoulder pain 11/15, pt states they take ibuprofen and reports does not alleviate the pain. Pt states the pain is unbearable and unable to sleep at night. Per covering provider to take Tyleonol q6 hours for pain relief. Pt informed that orthopaedic surgery referral was placed and that they will call them to set up appt. Pt requesting oxycodone for severe pain and informed pt will send message to covering provider. Pt advised if pain is unbearable then recommended to go back to the hospital to be evaluated since [facility] does not prescribe pain medications. Message forwarded to covering provider for review. * Telephone Encounter - Shanon Dia - 02/05/2024 11:12 AM EDT Tc from pt returning call for today's tele visit. documented in this encounter Plan of Treatment Upcoming Encounters Date Type Department Care Team (Late st Contact Info) Description 12/11/2024 9:00 AM EDT Office Visit [address] [address] Grant Ashley MD [address] [place] [address] 02/16/2025 2:30 PM EST Office Visit [address] [address] Name, MD Isacc [address] [place] [address] documented as of this encounter Visit Diagnoses Not on filedocumented in this encounter Additional Health Concerns Assessment Noted Time PHQ-9 Depression Total Score: 0 08/08/19 24 9:27 AM EDT documented as of this encounter Care Teams Residential Monitor Relationship Specialty Start Date End Date Name, MD Isacc [address] [place] [address] PCP - General Family Medicine 11/03/18 documented as of this encounter
--- OUTSIDE RECORDS SUMMARY | 2024-12-01 08:09 | XMS_ITS | Encounter Summary ---
Author Organization [employer] Address 75 [facility] 7t [place] [address] Care Team Providers Care Tooling Supervisor Name Role Phone Name, Isacc LOJA Primary Care Provider [phone] Encounter Details Date Type Department Care Team (Late st Contact Info) Description 03/13/2024 Orders Only [facility] [address] [place] [address] Provider, MD Zoey Social History Tobacco Use Types Packs/Day Years [...] 9:00 AM EDT Office Visit [facility] [address] [place] [address] Grant Ashley MD [address] [place] [address] 02/16/2025 2:30 PM EST Office Visit [facility] [address] [place] [address] Name, MD Isacc [address] [place] [address] documented as of this encounter Procedures Procedure Name Priority Date/Time Associated Diagnosis Comments COLONOSCOPY Routine 03/13/2024 2:44 PM EST documented in this encounter Results * Colonoscopy (03/13/2024 2:44 PM EST) Anatomical Region Laterality Modality Endoscopy us Historical Provider ENDOSCOPY PROCEDURE ORDER LEEANNE Final Result documented in this encounter Visit Diagnoses Not on filedocumented in this encounter Additional Health Concerns Assessment Noted Time PHQ-9 Depression Total Score: 0 08/08/19 24 9:27 AM EDT documented as of this encounter Care Teams Tooling Supervisor Relationship Specialty Start Date End Date NameIsacc MD [address] [place] [address] [phone] PCP - General Family Medicine 11/03/18 documented as of this encounter
--- OUTSIDE RECORDS SUMMARY | 2024-12-01 08:09 | XMS_ITS | Encounter Summary ---
Author Organization [employer] Address 75 [facility] 7t [place] [address] Care Team Providers Care Honing Machine Operator Production Name Role Phone Name, Isacc LOJA Primary Care Provider [phone] Reason for Visit * Reason Onset Date Comments Med Refill 11/05/2022 Encounter Details Date Type Department Care Team (Late st Contact Info) Description 11/05/2022 Telephone [facility]INE [address] [place], [place] [phone] Name, MD Isacc 230 [place] [address] Med Refill Social History Tobacco Use Types Packs/Day Years Used Date Smoking Tobacco: Every Day Cigarettes 0.3 44 Smokeless Tobacco: Never Alcohol Use Standard Drinks/Week Comments Not Currently 0 (1 standard drink = 0.6 oz pur e alcohol) Depression Answer Date Recorded Patient Health Questionnaire-9 Score 6 03/21/2022 Depression Answer Date Recorded Patient Health Questionnaire-2 Score 2 03/21/2022 Sex and Gender Information Value Date Recorded Sex Assigned at Male 02/05/2022 10:15 AM EDT Legal Sex Male 10:15 AM EDT Gender Identity Male 02/05/2022 10:15 AM EDT Sexual Orientation Straight 02/05/2022 10 :15 AM EDT documented as of this encounter Miscellaneous Notes * Telephone Encounter - Coleen Limon LPN - 11/05/2022 2:55 PM EDT Medication prescribed by Cardiology. * Telephone Encounter - Nelda Rodarte - 11/05/2022 2:40 PM EDT Tc from pt requesting medication refill on amLODIPine (Norvasc) 10 MG tablet to be sent to [facility]/pharmacy #[id number] - [place], [place] - [address] [facility] [address] documented in this encounter Plan of Treatment Upcoming Encounters Date Type Department Care Team (Late st Contact Info) Description 12/11/2024 9:00 AM EDT Office Visit [facility] MEDICINE [address] [place] [address] Grant Ashley MD [address] [place] [address] 02/16/2025 2:30 PM EST Office Visit [address] [address] Name, MD Isacc [address] [place] [address] documented as of this encounter Visit Diagnoses Not on filedocumented in this encounter Additional Health Concerns Assessment Noted Time PHQ-9 Depression Total Score: 6 03/21/20 22 10:54 AM EST documented as of this encounter Care Teams Honing Machine Operator Production Relationship Specialty Start Date End Date NameIsacc MD [address] [place] [address] PCP - General Family Medicine 11/03/18 documented as of this encounter
--- OUTSIDE RECORDS SUMMARY | 2024-12-01 08:09 | XMS_ITS | Encounter Summary ---
Author Organization [employer] Address [address] [facility] 7t [place] [address] Care Team Providers Care Youth Support Worker Name Role Phone Name, Isacc LOJA Primary Care Provider [phone] Reason for Visit * Reason Comments Med Refill Encounter Details Date Type Department Care Team ([facility] st Contact Info) Description 05/22/2024 Refill [facility] MEDICINE [address] [place], [place] [phone] Grant Ashley MD 230 [place], [place] [phone] Chronic low back pain, unspecified back pain laterality, unspecified whether sciatica present Social History Tobacco Use Types Packs/Day Years [...] Description 12/11/2024 9:00 AM EDT Office Visit [facility] MEDICINE [address] [place] [phone] Grant Ashley MD [address] [place] [address] 02/16/2025 2:30 PM EST Office Visit [address] [address] Name, MD Isacc [address] [place] [address] documented as of this encounter Visit Diagnoses Diagnosis Chronic low back pain, unspecified back pain laterality, unspecified whether sciatica present documented in this encounter Additional Health Concerns Assessment Noted Time PHQ-9 Depression Total Score: 0 08/08/19 9:27 AM EDT documented as of this encounter Care Teams Youth Support Worker Relationship Specialty Start Date End Date NameIsacc MD [address] [place] [phone] PCP - General Family Medicine 11/03/18 documented as of this encounter
--- OUTSIDE RECORDS SUMMARY | 2024-12-01 08:09 | XMS_ITS | Encounter Summary ---
Author Organization [employer] Address [address] [facility] 7t [place] [address] Care Team Providers Care Distribution Operations Supervisor Name Role Phone Name, Isacc LOJA Primary Care Provider [phone] Reason for Visit * Reason Comments Med Refill Encounter Details Date Type Department Care Team ([facility] st Contact Info) Description 02/04/2023 Refill [facility] 230 [place], [place] [phone] Name, MD Isacc 230 [place] [address] Chronic low back pain, unspecified back pain [...] 9:00 AM EDT Office Visit [facility] [address] [place] [phone] Grant Ashley MD [address] [place] [address] 02/16/2025 2:30 PM EST Office Visit [facility] [address] [place] [phone] NameIsacc MD [address] [place] [address] documented as of this encounter Visit Diagnoses Diagnosis Chronic low back pain, unspecified back pain laterality, unspecified whether sciatica present documented in this encounter Additional Health Concerns Assessment Noted Time PHQ-9 Depression Total Score: 6 03/21/20 22 10:54 AM EST documented as of this encounter Care Teams Distribution Operations Supervisor Relationship Specialty Start Date End Date Isacc Wood MD [address] [place] [phone] PCP - General Family Medicine 11/03/18 documented as of this encounter
--- OUTSIDE RECORDS SUMMARY | 2024-12-01 08:09 | XMS_ITS | Encounter Summary ---
Author Organization [employer] Address [address] [place] [address] 7 [place] [address] Care Team Providers Care Continuous Improvement Facilitator Name Role Phone Name, Isacc LOJA Primary Care Provider Reason for Visit * Reason Comments Med Refill Encounter Details Date Type Department Care Team (Late Contact Info) Description 01/07/2023 Refill [facility] MEDICINE [address] [place] [address] [phone] Name, MD Isacc [address] [place] [address] [phone] Social History Tobacco Use Types Packs/Day Years [...] Encounters Date Type Department Care Team (Late Contact Info) Description 12/11/2024 9:00 AM EDT Office Visit [facility] MEDICINE [address] [place] [address] [phone] Grant Ashley MD [address] [place] [address] [phone] 02/16/2025 2:30 PM EST Office Visit [facility] MEDICINE 230 [place] [address] Name, [place] [address] documented as of this encounter Visit Diagnoses Not on filedocumented in this encounter Additional Health Concerns Assessment Noted Time PHQ-9 Depression Total Score: 6 03/21/20 22 10:54 AM EST documented as of this encounter Care Teams Continuous Improvement Facilitator Relationship Specialty Start Date End Date Name, [place] [address] PCP - General Family Medicine 11/03/18 documented as of this encounter
--- OUTSIDE RECORDS SUMMARY | 2024-12-01 08:09 | XMS_ITS | Encounter Summary ---
Author Organization [employer] Address [address] [facility] 7t [place] [address] Care Team Providers Care Research Librarian Name Role Phone Name, Isacc LOJA Primary Care Provider [phone] Reason for Visit * Reason Comments Med Refill Encounter Details Date Type Department Care Team ([facility] st Contact Info) Description 07/17/2024 Refill [facility] MEDICINE 230 [place], [place] [phone] Grant Ashley MD 230 [place], [place] [phone] Chronic low back pain, unspecified back pain [...] Description 12/11/2024 9:00 AM EDT Office Visit [facility] MEDICINE [address] [place] [phone] Grant Ashley MD [address] [place] [phone] 02/16/2025 2:30 PM EST Office Visit [address] [address] Name, MD Isacc [address] [place] [address] documented as of this encounter Visit Diagnoses Diagnosis Chronic low back pain, unspecified back pain laterality, unspecified whether sciatica present documented in this encounter Additional Health Concerns Assessment Noted Time PHQ-9 Depression Total Score: 0 08/08/19 9:27 AM EDT documented as of this encounter Care Teams Research Librarian Relationship Specialty Start Date End Date NameIsacc MD [address] [place] [phone] PCP - General Family Medicine 11/03/18 documented as of this encounter
--- OUTSIDE RECORDS SUMMARY | 2024-12-01 08:09 | XMS_ITS | Encounter Summary ---
Author Organization [employer] Address [address] [facility] 7t [place] [address] Care Team Providers Care Group Sales Manager Name Role Phone Name, Isacc LOJA Primary Care Provider [phone] Reason for Visit * Reason Comments Med Refill Encounter Details Date Type Department Care Team ([facility] st Contact Info) Description 03/09/2023 Refill [facility] MEDICINE 230 [place], [place] [phone] Name, MD Isacc 230 [place] [address] Seasonal allergic rhinitis, unspecified trigger Social History Tobacco Use Types Packs/Day Years [...] Description 12/11/2024 9:00 AM EDT Office Visit [facility] MEDICINE [address] [place] [phone] Grant Ashley MD [address] [place] [address] 02/16/2025 2:30 PM EST Office Visit [facility] MEDICINE [address] [place] [phone] Name, MD Isacc [address] [place] [address] documented as of this encounter Visit Diagnoses Diagnosis Seasonal allergic rhinitis, unspecified trigger documented in this encounter Additional Health Concerns Assessment Noted Time PHQ-9 Depression Total Score: 6 03/21/20 22 10:54 AM EST documented as of this encounter Care Teams Group Sales Manager Relationship Specialty Start Date End Date NameIsacc MD [address] [place] [phone] PCP - General Family Medicine 11/03/18 documented as of this encounter
--- OUTSIDE RECORDS SUMMARY | 2024-12-01 08:09 | XMS_ITS | Encounter Summary ---
Author Organization [employer] Address [address] [facility] 7t [place] [address] Care Team Providers Care Dry Mill Operator Name Role Phone Name, Isacc LOJA Primary Care Provider [phone] Reason for Visit * Reason Comments Med Refill Encounter Details Date Type Department Care Team ([facility] st Contact Info) Description 02/05/2023 Refill [facility] MEDICINE 230 [place], [place] [phone] Name, MD Isacc 230 [place] [address] Social History Tobacco Use Types Packs/Day Years Used Date Smoking Tobacco: Every Day Cigarettes 0.3 44 Smokeless Tobacco: Never Alcohol Use Standard Drinks/Week Comments Not Currently 0 (1 standard drink = 0.6 oz pur e alcohol) Depression Answer Date Recorded Patient Health Questionnaire-9 Score 6 03/21/2022 Housing Stability Answer Date Recorded What is your housing situation today? I have tarunjaja galdamez 01/24/[address] you [...] Description 12/11/2024 9:00 AM EDT Office Visit [facility] MEDICINE [address] [place] [phone] Grant Ashley MD [address] [place] [phone] 02/16/2025 2:30 PM EST Office Visit [address] [address] Name, MD Isacc [address] [place] [address] documented as of this encounter Visit Diagnoses Not on filedocumented in this encounter Additional Health Concerns Assessment Noted Time PHQ-9 Depression Total Score: 6 03/21/20 22 10:54 AM EST documented as of this encounter Care Teams Dry Mill Operator Relationship Specialty Start Date End Date NameIsacc MD [address] [place] [phone] PCP - General Family Medicine 11/03/18 documented as of this encounter
--- OUTSIDE RECORDS SUMMARY | 2024-12-01 08:09 | XMS_ITS | Clinical Summary ---
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 Name Role Phone Name, Isacc LOJA Primary Care Provider [phone] Allergies Active Allergy Reactions Criticality Noted Date Comments Levofloxacin 02/26/2019 Other reaction(s): Rash, Rash Medications albuterol 108 (90 Base) MCG/ACT inhaler inhale 2 puff by inhalation route every 4 - 6 hours as needed 021 Active ascorbic acid (Vitamin C) 500 MG tablet Take one tablet by mouth daily 019 Active aspirin 81 MG EC tablet take 1 tablet by oral route every day 019 Active multivitamin (Theragran) tablet take 1 tablet by oral route every day with food 019 Active Alcohol Swabs (Alcohol Prep) pads Use to check fasting in morning and as needed Active Blood Glucose Monitoring Suppl (FreeStyle Lite) w/Device kit Use to check sugar fasting every morning and as needed Active Spacer/Aero-Ho lding Chambers (OptiChamber Fannie) device Optichamber fannie [facility] spacer Q4h prn Active FreeStyle lancets 1 each by Other route if needed. 28 gauge lancets Use 1 lancet by To Skin route every morning fasting and as needed Active hydrOXYzine HCl (Atarax) 25 MG tabletIndicati ons:Seasonal allergic rhinitis, unspecified trigger TOME MAXIMINO TABLETA DOS VECES AL MARILYN CUANDO SEA NECESARIO 180 tablet 023 Active glucose blood (FREESTYLE LITE) test strip Use to check sugar fasting every morning and as needed 100 each 11 024 Active naloxone (Narcan) 4 mg/0.1 mL nasal sprayIndicatio ns:Chronic low back pain, unspecified back pain laterality, unspecified whether sciatica present ADMINISTER 1 SPRAY INTO AFFECTED NOSTRIL(S) IF NEEDED FOR OPIOID REVERSAL. MAY REPEAT EVERY 2-3 MINUTES IF NEEDED, ALTERNATING NOSTRILS, UNTIL MEDICAL ASSISTANCE BECOMES AVAILABLE. 2 each 3 Active fluticasone (Flonase) 50 MCG/ACT nasal spray Administer 1 spray into each nostril Once per day for 10 days. 16 g Active docusate sodium (Colace) 100 MG capsule 1 or 2 capsules PO BID prn constipation (stool softener). 120 capsule 3 Active sennosides (Senokot) 8.6 MG tablet 1 or 2 tablet PO BID prn constipation (intestinal stimulant). 120 tablet 3 Active polyethylene glycol, PEG, 3350 (MiraLax) 17 GM/SCOOP powder 17 gms (1 capful) in 8 ounces of liquids once daily as needed for constipation. 510 g 1 Active lactulose (Chronulac) 10 GM/15ML solution Take 15 mL (10 g) by mouth 2 times daily. 473 mL 2 024 2024 Active atorvastatin (Lipitor) 80 MG tablet TAKE 1 TABLET BY MOUTH EVERY DAY 90 tablet 3 Active ezetimibe (Zetia) 10 MG tablet Take 1 tablet (10 mg) by mouth Once per day. 30 tablet 11 025 2025 Active Buprenorphine HCl-Naloxone HCl (Suboxone) 8-2 MG SL filmIndication s:Chronic low back pain, unspecified back pain laterality, unspecified whether sciatica present Place 1 Film under the tongue 3 times daily. Do not start before September 18, 2024. 84 Film 2 2024 Active cyclobenzaprin e (Flexeril) 10 MG tablet TAKE 1 TABLET BY MOUTH TWICE DAILY NEEDED FOR BACK MUSCLE SPASM 60 tablet 2 Active metFORMIN (Glucophage) 1000 MG tablet Take 1 tablet (1,000 mg) by mouth with breakfast and with evening meal. 60 tablet 11 025 2025 Active nicotine (Nicoderm CQ) 21 MG/24HR patch Place 1 patch on the skin 1 (one) time each day at the same time. 30 patch 2024 Active amLODIPine (Norvasc) 5 MG tablet Take 1 tablet by mouth Once per day. Active terazosin (Hytrin) 5 MG capsule Take 2 capsules by mouth at bedtime. Active metoprolol succinate XL (Toprol-XL) 100 MG 24 hr tablet Take 1 tablet by mouth Once per day. Active ticagrelor (Brilinta) 90 MG tablet Take 1 tablet by mouth 2 times daily. Active isosorbide mononitrate ER (Imdur) 30 MG 24 hr tablet Take 1 tablet by mouth before breakfast. Active bethanechol (Urecholine) 50 MG tablet Take 50 mg by mouth 2 times daily. Active insulin glargine (Lantus SoloStar) 100 UNIT/ML pen Inject 10 Units under the skin at bedtime. 3 mL 2025 Active pen needle 32G x 4 mm misc Use with insulin pen as directed 100 each 11 Active sertraline (Zoloft) 25 MG tablet Take 1 tablet (25 mg) by mouth Once per day for 7 days, THEN 2 tablets (50 mg) Once per day. 67 tablet 2 2024 Active LORazepam (Ativan) 0.5 MG tablet Take 1 tablet (0.5 mg) by mouth if needed each day for anxiety for up to 14 days. 14 tablet 025 2024 Active metoprolol succinate XL (Toprol-XL) 200 MG 24 hr tablet take 1 tablet by oral route every day 2024 Discontinued(M ed list cleanup (will not trigger notification to Pharmacy)) sildenafil (Viagra) 100 MG tablet take 1 tablet by oral route every day as needed approximately 1 hour before sexual activity 2024 Discontinued(M ed list cleanup (will not trigger notification to Pharmacy)) telmisartan (MIcarDIS) 80 MG tablet take 1 tablet by oral route every day 2024 Discontinued insulin glargine (Lantus) 100 UNIT/ML injection 10 units at bedime 10 mL 023 2024 Discontinued(D ose adjustment) pen needle 32G x 4 mm misc Use with insulin pen as directed 50 each 023 2024 Discontinued(R eorder (will not trigger notification to Pharmacy)) pantoprazole (ProtoNix) 20 MG EC tabletIndicati ons:Seasonal allergic rhinitis, unspecified trigger TAKE 1 TABLET BY MOUTH EVERY DAY 90 tablet 1 024 2024 Discontinued(T herapy completed) naloxone (Narcan) 4 mg/0.1 mL nasal sprayIndicatio ns:Chronic low back pain, unspecified back pain laterality, unspecified whether sciatica present Administer 1 spray (4 mg) into affected nostril(s) if needed for opioid reversal. May repeat every 2-3 minutes if needed, alternating nostrils, until medical assistance becomes available. 2 each 5 024 2024 Discontinued(M ed list cleanup (will not trigger notification to Pharmacy)) clopidogrel (Plavix) 75 MG tablet TOME 1 TABLETA POR VIA ORAL TODOS [place] 90 tablet 1 025 2024 Discontinued(M ed list cleanup (will not trigger notification to Pharmacy)) finasteride (Proscar) 5 MG tabletIndicati ons:Benign prostatic hyperplasia (BPH) with straining on urination TOME 1 TABLETA POR VIA ORAL TOD[place] 90 tablet 1 025 2024 Discontinued(T herapy completed) tamsulosin (Flomax) 0.4 MG 24 hr capsuleIndicat ions:Benign prostatic hyperplasia (BPH) with straining on urination TAKE 2 CAPSULE BY MOUTH EVERY DAY 1/2 HOUR FOLLOWING THE SAME MEAL EACH DAY 180 capsule 1 2024 Discontinued(M ed list cleanup (will not trigger notification to Pharmacy)) amLODIPine (Norvasc) 10 MG tablet Take 1 tablet (10 mg) by mouth Once per day. 30 tablet 11 025 2024 Discontinued(M ed list cleanup (will not trigger notification to Pharmacy)) furosemide (Lasix) 20 MG tablet Take 1 tablet (20 mg) by mouth Once per day. 20 tablet 025 2024 Discontinued(M ed list cleanup (will not trigger notification to Pharmacy)) LORazepam (Ativan) 0.5 MG tablet Take by mouth. 2024 Discontinued(R eorder (will not trigger notification to Pharmacy)) LORazepam (Ativan) 0.5 MG tablet Take 1 tablet (0.5 mg) by mouth Once per day. 5 tablet 025 2024 Discontinued(D uplicate order (will not trigger notification to Pharmacy)) Active Problems Patient Care Coordination No te Formatting of this note migh t be different from the original. C3/CM Alma Rosa Milian RN Problem Noted Date Diagnosed Date COVID-19 virus infection 12/23/2023 Assessment & Plan (12/23/2023 2:56 PM EDT): Rx Paxlovid x 5 days, [place] interactions module checked, Advised to call if she notices increased sedation as buprenorphine has theoretically a weak interaction with it ( ....coadministration with ritonavir (100 mg twice daily) increased exposure of buprenorphine (~57%) and its active metabolite, but this did not lead to clinically significant pharmacodynamic changes in a population of opioid tolerant patients.... ). He will also hold atorvastatin x 5d and Losartan and amlodipine if BP is too low or he presents with worsening weakness/MATTA. Use Flonase nasal 1x/d Isolation with a face mask until 12/24 and he will be wearing a mask/our of isolation until 12/28 if sxs are resolved without other meds for at least 24h. Counseled to let close contacts within the past week, know about dx so they can be tested if needed. Rest (sleep at least 8 hours a night). Wash hands frequently Hydrate with plenty of water. Take Acetaminophen or Ibuprofen as Prn fever or discomfort Gargle with salt water and use throat sprays/lozenges prn Use heated, humidified air or take hot showers. If you have a fever, stay home and away from others (self isolation) until fever-free for 72 hours (temperature should be less than 100 F without medication). 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 01/2022 Seasonal allergic rhinitis 03/17/2022 Peripheral vascular disease 03/17/2022 Tobacco use 03/17/2022 Overview (03/17/2022): Tobacco use and exposure finding per previous EHR History of colon polyps 03/17/2022 Overview (03/17/2022): History of polyp of colon per previous EHR 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 Peripheral arterial occlusive disease 06/26/2018 Chronic gastritis 04/21/2018 Tubular adenoma of colon 04/21/2018 Helicobacter positive gastritis 03/03/2018 Benign prostatic hyperplasia (BPH) with straining on urination 02/13/2018 Ventral hernia without obstruction or gangrene 1 04/15/2017 Erectile dysfunction due to diseases classified elsewhere 02/13/2018 Obesity (BMI 30.0-34.9) 02/13/2018 Anemia 10/24/2017 Perianal abscess 10/24/2017 Fibromyalgia 10/10/2017 Coronary arteriosclerosis in patient with history of previous myocardial infarction 10/10/2017 Disorder of rotator cuff 10/10/2017 Essential hypertension 10/10/2017 Claudication of calf muscles 10/10/2017 Tear of left supraspinatus tendon, sequela 10/10 DM2 (diabetes mellitus, type 2) 10/10/2017 Encounters Date Type Department Care Team Description 11/23/2024 1:00 PM EDT Office Visit [facility] [address] [place] [phone] Name, MD Isacc Coronary arteriosclerosis in patient with history of previous myocardial infarction (Primary Dx); Hyperkalemia; Type 2 diabetes mellitus with other circulatory complication, without long-term current use of insulin ([facility]); Panic attacks 11/23/2024 Travel 11/19/2024 Refill [facility] [place] [address] Isacc Wood MD 11/18/2024 Telephone [facility] [place] [address] Isacc Wood MD FY 11/12/2024 Orders Only [facility] [place] [address] Elizabeth Munson RN 11/12/2024 Orders Only [facility] [place] [address] Elizabeth Munson RN 11/12/2024 Refill [facility] [place] [address] Elizabeth Munson RN 11/11/2024 Patient Outreach [facility] [place] [address] Isacc Wood MD Transition Of Care (Tcm) (HDF scheduled) 11/06/2024 Telephone [facility] [place] [address] Isacc Wood MD home orders 11/03/2024 Telephone [facility] [place] [address] Isacc Wood MD requesting call back 11/03/2024 Telephone [facility] [place] [address] Isacc Wood MD 10/23/2024 9:15 AM EDT Office Visit [facility] [place] [address] Isacc Wood MD Dyspnea on exertion (Primary Dx); Weight gain; Leg edema; Type 2 diabetes mellitus with other circulatory complication, without long-term current use of insulin ([facility]); Urine retention; Peripheral arterial occlusive disease (CMS/HCC) 10/23/2024 Travel 10/22/2024 Telephone [facility] [place] [address] Isacc Wood MD Chart Prep 10/08/2024 1:30 PM EDT Telemedicine [facility] [place] [place] [address] Josette Kelly, DIANA Essential hypertension 10/08/2024 Telephone [facility] [place] [address] Isacc Wood MD 10/08/2024 Travel 10/01/2024 Telephone [facility] [place] [address] Isacc Wood MD Medication Question 09/18/2024 9:15 AM EDT Office Visit [facility] [place] [address] Grant Ashley MD Chronic low back pain, unspecified back pain laterality, unspecified whether sciatica present (Primary Dx) 09/18/2024 Travel 09/14/2024 Telephone [facility] [place] [address] Daniel Rudolph, DIANA OBAT 09/12/2024 Refill [facility] [place] [address] Isacc Wood MD 09/11/2024 Refill [facility] [place] [address] Nurys Toribio RN Chronic low back pain, unspecified back pain laterality, unspecified whether sciatica present from Last 3 Months Immunizations Immunization Administration Dates Next Due Influenza Injectable Quadriv alant Preservative Free IIV4 MDCK 12/02/2022,01/06/2020 Influenza injectable quadriv alent IIV4 with preservative 02/04/2019,02/13/2018 Influenza injectable quadriv alent preservative free 02/14/2022,02/08/2021,01/08/2020 Influenza, Unspecified 02/14/2022 Influenza, seasonal, injecta ble, preservative free 01/29/2024 Moderna Covid-19 Vaccine 12+ 11/02/2021, 04/04/2021,06/30/2020,06/02 Pfizer Covid-19 Vaccine 12+ Bivalent 02/20/2022 Pneumococcal Conjugate PCV 20 12/02/2022 Pneumococcal Polysaccharide PPSV23 08/26/2018 SARS-CoV-2, Unspecified 02/20/2022 TD (adult), 2 Lf tetanus tox oid, preservative free, adsorbed 02/04/2019 Tdap 06/18/2024 Zoster, Recombinant 03/14/2023,01/09/2023 Social History Tobacco Use Types Packs/Day Years [...] your housing situation today? I have tarun rudolph 09/18/[address] you li [...] Orientation Straight 02/05/2022 10 :15 AM EDT Last Filed Vital Signs Vital Sign Reading Time Taken Comments Blood Pressure 144/62 11/23/2024 1:09 PM EDT Pulse 97 11/23/2024 1:09 PM EDT Temperature 36.4 C (97.6 F) 10/23/2024 9:19 AM EDT Respiratory Rate 12 11/23/2024 1:09 PM EDT Oxygen Saturation 98% 11/23/2024 1:09 PM EDT Inhaled Oxygen Concentration - - Weight 74.9 kg (165 lb 3.2 oz) 11/23/2024 1:09 P M EDT Height 160 cm (5' 3 ) 11/23/2024 1:09 PM EDT Body Mass Index 29.26 11/23/2024 1:09 PM EDT Plan of Treatment Upcoming Encounters Date Type Department Care Team (Late st Contact Info) Description 12/11/2024 9:00 AM EDT Office Visit [facility] [address] [place] [phone] Grant Ashley MD [address] [place] [phone] 02/16/2025 2:30 PM EST Office Visit [address] [phone] Name, MD Isacc [address] [place] [address] [phone] Health Maintenance Due Date Last Done Comments CT Colonography 1960 FIT DNA/Cologuard 1960 FIT 1960 FOBT 1960 HIV Screening 1960 Sigmoidoscopy 1960 Disability Screening 1960 Eye Exam 1970 Hepatitis C Screening 1978 RSV Patients and Patients Aged 60 years or older (1 - Risk 60-74 years 1-dose series) 2020 COVID-19 Vaccine ( season) 2023 02/20/2022, 02/20/2022, 11/02/2021, Additional history exists Diabetes: Foot Exam 08/07/2024 08/08/2023, 08/08/2023, 08/08/2023, Additional history exists Diabetes: Urine Protein Screening 12/03/2024 12/04/2023, 03/14/2023, 02/20/2022, Additional history exists Influenza Vaccine (#1) 2024 , 12/02/2022, 02/14/2022, Additional history exists Diabetes: Hemoglobin A1C 05/26/2025 025, 06/18/2024, 11/13/2023, Additional history exists Lipid Panel 07/08/2025 07/08/2024, 11/07, 03/14/2023, Additional history exists Alcohol/Substance Use Screening 09/18/2025 09/18/2024 Depression Screening 09/18/2025 09/18/2024, 09/19/19 25 SDOH Screening 09/18/2025 09/18/2024 Tobacco Screening 11/23/2025 11/23/2024 Colonoscopy 03/16/2027 03/13/2024, 02/06/2018 Colorectal Cancer Screening 03/16/2027 DTaP/Tdap/Td Vaccines (2 - Td or Tdap) 06/18/2034 06/18/2024, 02/04/2019 Pneumococcal Vaccine: 50+ Years Completed 12/02/2022, 08/26/2018 Zoster Vaccines Completed 03/14/2023, 01/09/2023 HIB Vaccines Aged Out No longer eligi ble based on patient's age to complete this topic HPV Vaccines Aged Out No longer eligi ble based on patient's age to complete this topic Hepatitis A Vaccines Aged Out No long er eligible based on patient's age to complete this topic Hepatitis B Vaccines Aged Out No long er eligible based on patient's age to complete this topic IPV Vaccines Aged Out No longer eligi ble based on patient's age to complete this topic Meningococcal B Vaccine Aged Out No l onger eligible based on patient's age to complete this topic Meningococcal Vaccine Aged Out No lai daksha eligible based on patient's age to complete this topic RSV under 20 months Aged Out No longe r eligible based on patient's age to complete this topic Rotavirus Vaccines Aged Out No longer eligible based on patient's age to complete this topic Procedures Procedure Name Priority Date/Time Associated Diagnosis Comments POCT GLYCATED HEMOGLOBIN, TOTAL Routine 11/23/2024 1:16 PM EDT Type 2 diabetes mellitus with other circulatory complication, without long-term current use of insulin ([facility]/HCC) POCT GLUCOSE Routine 11/23/2024 1:15 PM EDT Type 2 diabetes mellitus with other circulatory complication, without long-term current use of insulin (CMS/HCC) POCT GLUCOSE Routine 10/23/2024 9:21 AM EDT Type 2 diabetes mellitus with other circulatory complication, without long-term current use of insulin ([facility]) COMPREHENSIVE METABOLIC PANEL Routine 10/07/2024 9:51 AM EDT Type 2 diabetes mellitus with other circulatory complication, without long-term current use of insulin ([facility]) Dysuria Benign prostatic hyperplasia (BPH) with straining on urination POCT ISAURA-14 URINE DRUG SCREEN Routine 09/18/2024 9:00 AM EDT Chronic low back pain, unspecified back pain laterality, unspecified whether sciatica present LIPID PANEL, STANDARD Routine 07/08/2024 8:22 AM EDT Type 2 diabetes mellitus with other circulatory complication, without long-term current use of insulin ([facility]) Dysuria Benign prostatic hyperplasia (BPH) with straining on urination COLONOSCOPY Routine 03/13/2024 2:44 PM EST ALBUMIN, RANDOM URINE W/CREATININE Routine 12/04/2023 9:22 AM EDT Type 2 diabetes mellitus with other specified complication, unspecified whether custodial insulin use ([facility]/HCC) Hypertension, unspecified type from Last 3 Months or Most Recently Relevant to Health Maintenance Results * (ABNORMAL) POCT HGB A1C (11/23/2024 1:16 PM EDT) Hemoglobin A1C 6.5(A) 4.0 - 5.7 % QC Media Lot # [id number] Lot# Expiration Date 4,727 Blood 11/23/2024 1:16 PM EDT us Isacc Name POINT OF CARE TEST ENTER/EDIT OR DERABLES Final Result * POCT Glucose (11/23/2024 1:15 PM EDT) Only the most recent of2 resultswithin the time period is included. Glucose Blood, POC 182 60 - 200 mg/dL QC Media Lot # [id number] Lot# Expiration Date Blood Capillary blood specimen / Unknown 11/23/2024 1:15 PM EDT us Isacc Name POINT OF CARE TEST ENTER/EDIT OR DERABLES Final Result * (ABNORMAL) Comprehensive Metabolic Panel (10/07/2024 9:51 AM EDT) Pathologist [facility] Sodium 136 135 - 145 mmol/L [facility] Potassium 4.2 3.3 - 5.1 mmol/L [facility] Chloride 102 96 - 108 mmol/L [facility] Carbon Dioxide 24 22 - 29 mmol/L [facility] Anion Gap 14 12 - 20 [facility] Urea Nitrogen (BUN) 9 9 - 16 mg/dL [facility] Creatinine, Serum 0.85 0.5 - 1.4 mg/dL [facility] Estimated Glomerular Filt Rate >60 [facility] Comment:Chronic Kidney Disea se: Estimated GFR < 60 mL/min/[id number] Kidney Disease: Estimated GFR < 15 mL/min/1.73m2 Glucose 253(H) 60 - 115 mg/dL [facility] Calcium 9.0 8.4 - 10.2 mg/dL [facility] Bilirubin, Total 0.3 0.0 - 1.0 mg/dL [facility] Aspartate Amino Transferase 22 5 - 37 U/L [facility] Alanine Aminotransferase 15 0 - 40 U/L [facility] Total Protein 6.5 6.5 - 8.0 g/dL [facility] Albumin Level 3.9 3.5 - 5.0 g/dL [facility] Alkaline Phosphatase 87 39 - 117 U/L [facility] Blood Venous blood specimen / Unknown 10/07/2024 9:51 AM EDT 10/07/2024 11:03 AM EDT Isacc Wood MD LAB BLOOD ORDERABLES Final Resul t [facility] [address] [place] [phone] * POCT ISAURA-14 Urine Drug Screen (09/18/2024 9:00 AM EDT) THC Negative Cocaine Screen, Urine Negative Opiate Screen, Urine Negative Methamphetamine Screen Urine Negative Amphetamine Screen, Urine Negative Benzodiazepines Screen, Urine Negative Barbiturate Screen, Urine Negative Methadone Screen, Urine Negative Buprenophine Screen, Urine Positive TCA, Urine Positive MDMA Urine Negative ng/mL Oxycodone Screen, Urine Negative Phencyclidine (PCP), Urine Negative Fentanyl, Urine Negative Urine Urine specimen obtained by clean catch procedure / Unknown 09/18/2024 9:00 AM EDT Grant Ashley MD POINT OF CARE TEST ENTER/EDIT ORDERABLES Final Result * (ABNORMAL) Lipid Panel, Standard (07/08/2024 8:22 AM EDT) Triglycerides 241(H) <150 mg/dL [facility] Comment:Slight Lipemia.Yoel able Triglyceride: less than 150 mg/dLBorderline High Triglyceride 150-199 mg/dLHigh Triglyceride: 200-499 mg/dLVery High Triglyceride: greater than or equal to 5OO mg/dL Cholesterol 213(H) <200 mg/dL [facility] Comment:Desirable Cholestero l: less than 200 mg/dLBorderline High Cholesterol: 200-239 mg/dLHigh Cholesterol: greater than 239 mg/dL LDL Cholesterol Calculated 123(H) <100 mg/dL [facility] Comment:Desirable LDL: less than 100 mg/dLNear Optimal/Above Optimal LDL: 110- 129 mg/dLBorderline High LDL: 130-159 mg/dLHigh LDL: 160-189 mg/dLVery High LDL: greater than or equal to 190 mg/dL HDL Cholesterol 42 >40 mg/dL [facility] Comment:Desirable HDL: great er than 40 mg/dL Note: This HDL assay may give artificially low results in patients with liver disease. Blood Venous blood specimen / Unknown 07/08/2024 8:22 AM EDT 07/08/2024 11:25 AM EDT Isacc Wood MD LAB BLOOD ORDERABLES Final Resul t Performing Organization Address [facility] Co de Phone Number [facility] [address] [place] [phone] * Colonoscopy (03/13/2024 2:44 PM EST) Anatomical Region Laterality Modality Endoscopy [facility] Provider ENDOSCOPY PROCEDURE ORDER LEEANNE Final Result * (ABNORMAL) Albumin, Random Urine W/Creatinine (12/04/2023 9:22 AM EDT) Creatinine, Urine 40.59 mg/dL [facility] Microalbumin Urine 13.0 mg/L [facility] Microalbum Creatinine Ratio Ur 32.0(H) <30 ug/mg cr [facility] Comment:Albumin/Creatinine R atio Reference Ranges: Normal: < 30 ug/mg creatinine Microalbuminuria: 30 - 300 ug/mg creatinineClinical Albuminuria: > 300 ug/mg creatinine Urine (Urine, Random) 12/04/2023 9:22 AM EDT 12/04/2023 11:02 AM EDT us Isacc Wood MD LAB URINE ORDERABLES Final Resul t Performing Organization Address [facility] Co de Phone Number [facility] [address] [place] [address] [phone] from Last 3 Months or Most Recently Relevant to Health Maintenance Insurance [place] [phone] Care Teams 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
--- OUTSIDE RECORDS SUMMARY | 2024-12-01 08:09 | XMS_ITS | Encounter Summary ---
Author Organization [employer] Address [address] [facility] 7t [place] [address] Care Team Providers Care Operational Test Mechanic Name Role Phone Name, Isacc LOJA Primary Care Provider [phone] Encounter Details Date Type Department Care Team (Late Contact Info) Description 09/17/[address] [address] Name, MD Isacc [address] [place] [address] Social History Tobacco Use Types Packs/Day Years [...] Description 12/11/2024 9:00 AM EDT Office Visit [address] [phone] Grant Ashley MD [address] [place] [address] 02/16/2025 2:30 PM EST Office Visit [address] [address] Name, MD Isacc [address] [place] [address] documented as of this encounter Procedures Procedure Name Priority Date/Time Associated Diagnosis Comments COLONOSCOPY Routine 02/06/2018 12:51 PM EDT documented in this encounter Results * Colonoscopy (02/06/2018 12:51 PM EDT) Colonoscopy Normal Normal Narrative Rosalina Castro - 02/06/2018 12:51 PM EDT Recommended 5 years ( [facility]) us Historical Provider HEALTH MAINTENANCE Final Result documented in this encounter Visit Diagnoses Not on filedocumented in this encounter Additional Health Concerns Assessment Noted Time PHQ-9 Depression Total Score: 6 03/21/20 22 10:54 AM EST documented as of this encounter Care Teams Operational Test Mechanic Relationship Specialty Start Date End Date Name, MD Isacc [address] [place] [address] PCP - General Family Medicine 11/03/18 documented as of this encounter
--- OUTSIDE RECORDS SUMMARY | 2024-12-01 08:09 | XMS_ITS | Encounter Summary ---
Author Organization [employer] Address 75 [facility] 7t [place] [address] Care Team Providers Care Mortgage Manager Name Role Phone Name, Isacc LOJA Primary Care Provider [phone] Reason for Visit * Reason Comments Med Refill Encounter Details Date Type Department Care Team ([facility] st Contact Info) Description 05/22/2023 Refill [facility] [address] [place], [place] [phone] Name, MD Isacc [address] [place] [address] Social History Tobacco Use Types Packs/Day Years [...] Description 12/11/2024 9:00 AM EDT Office Visit [facility] [address] [place] [address] Grant Ashley MD [address] [place] [address] 02/16/2025 2:30 PM EST Office Visit [address] [address] Name, MD Isacc [address] [place] [address] documented as of this encounter Visit Diagnoses Not on filedocumented in this encounter Additional Health Concerns Assessment Noted Time PHQ-9 Depression Total Score: 6 03/21/20 22 10:54 AM EST documented as of this encounter Care Teams Mortgage Manager Relationship Specialty Start Date End Date NameIsacc MD [address] [place] [address] PCP - General Family Medicine 11/03/18 documented as of this encounter
--- OUTSIDE RECORDS SUMMARY | 2024-12-01 08:09 | XMS_ITS | Encounter Summary ---
Author Organization [employer] Address 75 [facility] 7t [place] [address] Care Team Providers Care Skates Operator Name Role Phone Name, Isacc LOJA Primary Care Provider [phone] Reason for Visit * Reason Onset Date Comments Med Refill 10/05/2022 Encounter Details Date Type Department Care Team (Late st Contact Info) Description 10/05/2022 Telephone [facility] MEDICINE [address] [place], [place] [phone] Name, MD Isacc [address] [place] [address] Med Refill Social History Tobacco Use Types [...] Orientation Straight 02/05/2022 10 :15 AM EDT COVID-19 Exposure Response Date Recorded In the last 10 days, have yo u been in contact with someone who was confirmed or suspected to have Coronavirus/COVID-19? No / Unsure 09/26/2022 11:14 AM EDT documented as of this encounter Miscellaneous Notes * Telephone Encounter - Concha Adler RN - 10/05/2022 4:15 PM EDT Due 7/5 * Telephone Encounter - Nelda Cayden - 10/05/2022 4:04 PM EDT Tc from pt requesting medication refill on oxyCODONE-acetaminophen (Percocet) 5- 325 MG tablet documented in this encounter Plan of Treatment Upcoming Encounters Date Type Department Care Team (Late st Contact Info) Description 12/11/2024 9:00 AM EDT Office Visit [facility] MEDICINE [address] [place] [address] Grant Ashley MD [address] [place] [address] 02/16/2025 2:30 PM EST Office Visit [address] [address] Name, MD Isacc [address] [place] [address] documented as of this encounter Visit Diagnoses Not on filedocumented in this encounter Additional Health Concerns Assessment Noted Time PHQ-9 Depression Total Score: 6 03/21/20 22 10:54 AM EST documented as of this encounter Care Teams Skates Operator Relationship Specialty Start Date End Date NameIsacc MD [address] [place] [address] PCP - General Family Medicine 11/03/18 documented as of this encounter
== END 2024-12-01 08:03 | disposition home or self-care (01) ==
LOC: HO.US 08:02
PROVIDERS: PCP Internal Medicine Geriatric Medicine; Visit Provider Nurse Practitioner Family
DX: C64.2 Malignant neoplasm of left kidney, except renal pelvis (principal)
CPT/HCPCS: 76775

== ENCOUNTER → 2024-12-01 08:05 | Outpatient (BNV) | payer MEDICARE, OTHER, SELFPAY | PROVIDERS: PCP Internal Medicine Geriatric Medicine; Visit Provider Radiology Diagnostic Radiology | DX: C64.2 Malignant neoplasm of left kidney, except renal pelvis (principal); N28.1 Cyst of kidney, acquired | CPT/HCPCS: 76775 ==

== ENCOUNTER 2024-12-10 14:38 | Outpatient (AMB) | payer MEDICARE, OTHER, SELFPAY ==
--- NOTE | 2024-12-10 14:39 | MHC.OFFVIS ---
Intake Visit Reasons: US f/u Intake Note: patient presents today for: telehealth US follow up urology medications: terazosin, brthanechol chloride, finasteride blood thinners: none imaginig done: 12/01/24 Substation Design Draftsperson Required: Yes Accompanied by: Self / Same As Patient Allergies No Known Allergies (No Known Allergies*) Allergy (Unverified 12/13/24 20:40) Medication List - Last Reconciled 12/13/24 by JAYDON BeardP- amlodipine 5 mg PO DAILY atorvastatin 80 mg PO DAILY bethanechol chloride 50 mg PO BID buprenorphine-naloxone 8-2 mg 1 film sublingual TID clopidogrel 75 mg PO DAILY cyclobenzaprine 10 mg PO BID PRN ezetimibe 10 mg PO DAILY isosorbide mononitrate ER 60 mg PO DAILY lorazepam 0.5 mg PO DAILY PRN metformin 500 mg PO BID metoprolol succinate ER 200 mg PO DAILY nicotine 1 patch topical ONCE ranolazine ER 500 mg PO BID sertraline mg PO telmisartan 80 mg PO DAILY terazosin 10 mg (2 x 5 mg) PO BEDTIME HPI Comments Details: [place] is a 64-year-old male patient of Dr. Wood. He has a past medical history of AR, hypertension, fibromyalgia, coronary artery disease and cancer of left kidney. He presents to the office today for follow-up of his incomplete bladder emptying/urinary retention and left-sided renal cancer. Of note, patient was seen approximately 3 months ago as a new patient as he had previously been following up with Dr. Raymond at [facility] at which time a renal ultrasound was ordered for further assessment evaluation. These results were reviewed and communicated with the patient today. 11/30 left renal indeterminate solid cystic mass at the interpolar region at the site of prior cryoablation no previous imaging is available to compare. Probable right renal angiolipoma 8 mm. Bilateral renal cortical cysts. He reports previous cryoablation in . We discussed continuation of surveillance monitoring and obtaining CT of the chest as well. He reports compliance with terazosin and bethanechol as prescribed. He continues to perform CIC 2 times per day. He does report he is urinating independently as well. Previous imaging has included a bladder ultrasound 07/31 sonographic examination of the urinary bladder was performed before and after voiding. Pre void bladder volume was approximately 1800 mL. Postvoid bladder volume is approximately a 1000 mL. The prostate was poorly visualized. PSA 07/31 0.7. We discussed at length potential causes and further treatment options of incomplete bladder emptying/urinary retention. He will continue with performing CIC 2 times per day. We discussed follow-up in office to assess for PVR. He denies urinary urgency, urinary frequency, incontinence, nocturia, hematuria, dysuria, foul smelling flank pain, fever, and or chills. During last office visit medical release form was signed and there was an attempt to obtain previous urology records however this was unsuccessful. Will attempt again. All questions were answered. He otherwise offers no other issues or concerns at this time. In review of patient's chart it appears scanned MRI 12/29 noted expected treatment changes into left interpolar ablation cavities without evidence of reoccurrence. Several bilateral renal cysts again noted. She otherwise offers no other issues or concerns at this time [facility] Medical History Abnormal colonoscopy (~03/03/18) Myocardial infarction High blood pressure Fibromyalgia Cancer of left kidney CAD (coronary artery disease) Surgical History History of back surgery Family History Mother CAD (coronary artery disease) Social History Household Members: Family and None Patient Tobacco Use Status: Current everyday Tobacco user service: No Current occupational status: unemployed and retired Review of Systems Const All systems reviewed & are unremarkable except as noted in HPI and below Physical Exam Const General: cooperative Resp Effort & Inspection: able to speak in complete sentences Psych Attitude: cooperative Thought content: Normal thought content present Insight: Fair insight present (Psych) Judgement: Fair judgement present (Psych) Telehealth Telehealth Telehealth Platform: [facility] Location of provider rendering services: practice address Location of patient: address on file Patient Identification confirmed using: Name, : Yes Telehealth method: voice only Patient verbally consented to treatment: Yes Patient verbally consented to billing insurance company: Yes Patient informed of any privacy concerns related to visit: Yes Minutes spent on Phone/Video with Pt.: 25 Results Reviewed Results Reviewed: Date of Service: 12/01/24 Procedure(s): US renal BI Findings: Right kidney is normal in size, echogenicity and morphology, 11.5 cm in length. No calculus or hydronephrosis. 3 avascular cortical cysts at interpolar region 0.9 cm, 1.5 cm and 1.3 cm respectively. Avascular hyperechoic cortical mass without shadowing in the interpolar region adjacent to the cyst 7 x 8 x 8 mm, may reflect angiomyolipoma. Left kidney is normal in size, echogenicity and morphology, 10.9 cm in length. No calculus or hydronephrosis. Upper pole avascular cysts 1.9 cm and 1.4 cm. At the interpolar region, there is exophytic mass with mixed echogenicity and small central cystic component, no internal vascular flow, mildly increased through transmission, 1.9 x 1.5 x 2.1 cm. Limited color Doppler demonstrates unremarkable bilateral blood flow. Impression: 1. Left renal indeterminate solid cystic mass at the interpolar region, per engineering program analyst note, this is at the site of prior cryoablation, no previous relevant exam is available to compare, recommend comparison with previous exam if available, otherwise renal MRI or CT would be helpful for further evaluation. 2. 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 3. Bilateral renal cortical cysts. Assessment & Plan Assessment & Plan (1) Cancer of left kidney: Code(s): C64.2 - Malignant neoplasm of left kidney, except renal pelvis Category: Medical (2) Incomplete bladder emptying: Code(s): R33.9 - Retention of urine, unspecified Category: Medical (3) Urinary retention: Code(s): R33.9 - Retention of urine, unspecified Category: Medical Plan Recent renal imaging results reviewed with the patient today; as noted above. Will obtain CT of the chest Will attempt to obtain previous urology records for continuity of care Continue bethanechol and terazosin as prescribed. Patient will continue to CIC 2 times per day as he does report he is independently voiding. We discussed the importance of surveillance monitoring. He currently denies any bothersome urinary issues. Follow-up in 1-3 months with imaging and PVR; or sooner with any issues, concerns, and or questions. Orders: Orders CT chest wo/w IV con 12/10/24 C64.2 - Malignant neoplasm of left kidney, except renal pelvis Blood Urea Nitrogen 12/10/24 R39.15 - Urgency of urination Creatinine 12/10/24 R39.15 - Urgency of urination Patient Instructions: The patient had an opportunity to ask questions regarding the treatment plan. All questions were answered. Physical exam, labs, and imaging were discussed and reviewed in detail. As well as risks, benefits, and discussion of treatment choices. No major barriers to understanding were identified. The patient expressed understanding and agreement with the above treatment plan. The patient was made aware they should contact our office by phone for worsening of their current condition, the appearance of new symptoms, or with any questions or concerns. Compliance is encouraged with any medications and follow up testing that is ordered. It is a privilege to be allowed the opportunity to participate in? your urological care.? Again, if you have any questions or concerns If you have any questions or concerns please do not hesitate to contact me. The office is [phone]. This note is constructed using voice recognition software. While every effort has been made to ensure accuracy senior office support assistant sosa errors may have been included. Yours sincerely, MELVI Beard Coding Level of Care Code Tele Est Pt Level 4 (69281) Diagnoses Cancer of left kidney C64.2 Incomplete bladder emptying R33.9 Urinary retention R33.9
--- OUTSIDE RECORDS SUMMARY | 2024-12-10 15:51 | XMS_ITS | Encounter Summary ---
Author Organization [employer] Address [address] [facility] [address] 7t [place] [address] Care Team Providers Care Retail Loan Originator Assistant Name Role Phone Name, Isacc LOJA Primary Care Provider [phone] Encounter Details Date Type Department Care Team (Late st Contact Info) Description 11/12/2024 Orders Only [facility] MEDICINE [address] [place] [address] Elizabeth Munson, RN Social History Tobacco Use [...] Description 12/11/2024 9:00 AM EDT Office Visit [address] [address] Grant Ashley MD [address] [place] [address] 02/16/2025 2:30 PM EST Office Visit [address] [address] Isacc Wood MD [address] [place] [address] 02/26/2025 9:00 AM EST Office Visit [address] [address] Grant Ashley MD [address] [place] [address] documented as of this encounter Visit Diagnoses Not on filedocumented in this encounter Additional Health Concerns Assessment Noted Time PHQ-9 Depression Total Score: 0 09/19/19 25 9:22 AM EDT documented as of this encounter Care Teams Retail Loan Originator Assistant Relationship Specialty Start Date End Date Isacc Wood MD [address] [place] [address] PCP - General Family Medicine 11/03/18 documented as of this encounter
--- OUTSIDE RECORDS SUMMARY | 2024-12-10 15:51 | XMS_ITS | Encounter Summary ---
Author Organization [employer] Address [address] [facility] [address] 7t [place] [address] Care Team Providers Care Restaurant Assistant Manager Name Role Phone Name, Isacc LOJA Primary Care Provider [phone] Encounter Details Date Type Department Care Team ([facility] st Contact Info) Description 11/03/2024 Telephone [facility] MEDICINE [address] [place], [place] [phone] Name, MD Isacc [address] [place], [place] [phone] Social History Tobacco Use Types Packs/Day Years [...] Description 12/11/2024 9:00 AM EDT Office Visit [address] [address] Grant Ashley MD [address] [place] [address] 02/16/2025 2:30 PM EST Office Visit [address] [address] Isacc Wood MD [address] [place] [address] 02/26/2025 9:00 AM EST Office Visit [address] [address] Grant Ashley MD [address] [place] [address] documented as of this encounter Visit Diagnoses Not on filedocumented in this encounter Additional Health Concerns Assessment Noted Time PHQ-9 Depression Total Score: 0 09/19/19 9:22 AM EDT documented as of this encounter Care Teams Restaurant Assistant Manager Relationship Specialty Start Date End Date Isacc Wood MD [address] [place] [address] PCP - General Family Medicine 11/03/18 documented as of this encounter
--- OUTSIDE RECORDS SUMMARY | 2024-12-10 15:51 | XMS_ITS | Encounter Summary ---
Author Organization [employer] Address 75 [facility] 7t [place] [address] Care Team Providers Care Spareribs Trimmer Name Role Phone Name, Isacc LOJA Primary Care Provider [phone] Reason for Visit * Reason Onset Date Comments Pain med, suboxone, CRS Dept 10/28/2023 Encounter Details Date Type Department Care Team (Late st Contact Info) Description 10/28/2023 Telephone [facility] MEDICINE [address] [place] [address] Name, MD Isacc [address] [place], [place] [phone] Pain med, suboxone, CRS Dept Social History [...] like patient had been receiving. TC via P/I#[id number], reviewed with patient that CRS department has [...] 5-325 MG tablet To be sent to: [facility]/pharmacy #[id number] - [place], [place] - [facility] leaves on vacation tomorrow to [place] 10/29/23. documented in this encounter Plan of Treatment Upcoming Encounters Date Type Department Care Team (Late st Contact Info) Description 12/11/2024 9:00 AM EDT Office Visit [address] [address] [place] [address] 02/16/2025 2:30 PM EST Office Visit [address] [address] Name, [place] [address] 02/26/2025 9:00 AM EST Office Visit [address] [address] [place] [address] documented as of this encounter Visit Diagnoses Not on filedocumented in this encounter Additional Health Concerns Assessment Noted Time PHQ-9 Depression Total Score: 0 08/08/19 24 9:27 AM EDT documented as of this encounter Care Teams Spareribs Trimmer Relationship Specialty Start Date End Date Name, MD Isacc [address] [place] [address] PCP - General Family Medicine 11/03/18 documented as of this encounter
--- OUTSIDE RECORDS SUMMARY | 2024-12-10 15:51 | XMS_ITS | Encounter Summary ---
Author Organization [employer] Address [address] [facility] 7t [place] [address] Care Team Providers Care Welder Gas Name Role Phone Name, Isacc LOJA Primary Care Provider [phone] Reason for Visit * Reason Onset Date Comments FYI 11/18/2024 Encounter Details Date Type Department Care Team ([facility] st Contact Info) Description 11/18/2024 Telephone [facility] MEDICINE [address] [place] [address] Name, MD Isacc [address] [place] [address] FYI Social History Tobacco Use Types Packs/Day [...] any questions you can contact pt at [phone]. (Salvadorean Speaker) documented in this encounter Plan of Treatment Upcoming Encounters Date Type Department Care Team (Late st Contact Info) Description 12/11/2024 9:00 AM EDT Office Visit [facility] MEDICINE [address] [place] [address] Grant Ashley MD [address] [place] [address] 02/16/2025 2:30 PM EST Office Visit [address] [address] Name, MD Isacc [address] [place] [address] 02/26/2025 9:00 AM EST Office Visit [facility] MEDICINE [address] [place] [address] Grant Ashley MD [address] [place] [address] documented as of this encounter Visit Diagnoses Not on filedocumented in this encounter Additional Health Concerns Assessment Noted Time PHQ-9 Depression Total Score: 0 09/19/19 25 9:22 AM EDT documented as of this encounter Care Teams Welder Gas Relationship Specialty Start Date End Date Name, MD Isacc [address] [place] [address] PCP - General Family Medicine 11/03/18 documented as of this encounter
--- OUTSIDE RECORDS SUMMARY | 2024-12-10 15:51 | XMS_ITS | Encounter Summary ---
Author Organization [employer] Address 75 [facility] 7t [place] [address] Care Team Providers Care Oracle Financials Consultant Name Role Phone Name, Isacc LOJA Primary Care Provider [phone] Reason for Visit * Reason Onset Date Comments requesting call back 11/03/2024 Encounter Details Date Type Department Care Team ([facility] st Contact Info) Description 11/03/[address] [facility] MEDICINE [address] [place] [address] Name, MD Isacc [address] [place] [address] requesting call back Social History Tobacco Use [...] called to informed he is admiited at [facility] . He will call back when he's recovery from His Heart Surgery on 11/04/2024. Sending to Dr. Dion EDGAR. * Telephone Encounter - Isacc Silva - 11/03/2024 1:13 PM EDT Tc from pt requesting a call back with the phone number of where he is going to get his surgery. Nofurther details provided. Contact pt at [phone] documented in this encounter Plan of Treatment Upcoming Encounters Date Type Department Care Team (Late st Contact Info) Description 12/11/2024 9:00 AM EDT Office Visit [facility] MEDICINE [address] [place] [address] Grant Ashley MD [address] [place] [address] 02/16/2025 2:30 PM EST Office Visit [address] [address] Isacc Wood MD [address] [place] [address] 02/26/2025 9:00 AM EST Office Visit [address] [address] Grant Ashley MD [address] [place] [address] documented as of this encounter Visit Diagnoses Not on filedocumented in this encounter Additional Health Concerns Assessment Noted Time PHQ-9 Depression Total Score: 0 09/19/19 25 9:22 AM EDT documented as of this encounter Care Teams [employer] Financials Consultant Relationship Specialty Start Date End Date Isacc Wood MD [address] [place] [address] PCP - General Family Medicine 11/03/18 documented as of this encounter
--- OUTSIDE RECORDS SUMMARY | 2024-12-10 15:51 | XMS_ITS | Encounter Summary ---
Author Organization [employer] Address [address] 7t [place] [address] Care Team Providers Care Superintendent Schools Name Role Phone Name, Isacc LOJA Primary Care Provider [phone] Encounter Details Date Type Department Care Team (Late st Contact Info) Description 11/12/2024 Orders Only [facility] MEDICINE [address] [place] [address] Elizabeth Munson, RN Social History Tobacco Use [...] Description 12/11/2024 9:00 AM EDT Office Visit [address] [address] Grant Ashley MD [address] [place] [address] 02/16/2025 2:30 PM EST Office Visit [address] [address] Isacc Wood MD [address] [place] [address] 02/26/2025 9:00 AM EST Office Visit [address] [address] Grant Ashley MD [address] [place] [address] documented as of this encounter Visit Diagnoses Not on filedocumented in this encounter Additional Health Concerns Assessment Noted Time PHQ-9 Depression Total Score: 0 09/19/19 25 9:22 AM EDT documented as of this encounter Care Teams Superintendent Schools Relationship Specialty Start Date End Date Isacc Wood MD [address] [place] [address] PCP - General Family Medicine 11/03/18 documented as of this encounter
--- OUTSIDE RECORDS SUMMARY | 2024-12-10 15:52 | XMS_ITS | Encounter Summary ---
Author Organization [employer] Address [address] [facility] 7t [place] [address] Care Team Providers Care Metal Filer Name Role Phone Name, Isacc LOJA Primary Care Provider [phone] Reason for Visit * Reason Comments Med Refill Encounter Details Date Type Department Care Team ([facility] st Contact Info) Description 02/05/2023 Refill [facility] MEDICINE 230 [place], [place] [phone] Name, MD Isacc [address] [place] [address] Social History Tobacco Use Types Packs/Day Years [...] Description 12/11/2024 9:00 AM EDT Office Visit [facility] [address] [place] [address] Grant Ashley MD [address] [place] [address] 02/16/2025 2:30 PM EST Office Visit [address] [address] Name, MD Isacc [address] [place] [address] 02/26/2025 9:00 AM EST Office Visit [address] [address] Grant Ashley MD [address] [place] [address] documented as of this encounter Visit Diagnoses Not on filedocumented in this encounter Additional Health Concerns Assessment Noted Time PHQ-9 Depression Total Score: 6 03/21/20 22 10:54 AM EST documented as of this encounter Care Teams Metal Filer Relationship Specialty Start Date End Date Isacc Wood MD [address] [place] [address] PCP - General Family Medicine 11/03/18 documented as of this encounter
--- OUTSIDE RECORDS SUMMARY | 2024-12-10 15:52 | XMS_ITS | Encounter Summary ---
Author Organization [employer] Address 75 [facility] 7t [place] [address] Care Team Providers Care Elevator Constructor Supervisor Name Role Phone Name, Isacc LOJA Primary Care Provider [phone] Reason for Visit * Reason Comments Med Refill Encounter Details Date Type Department Care Team ([facility] st Contact Info) Description 05/22/2024 Refill [facility] MEDICINE 230 [place], [place] [phone] Grant Ashley MD 230 [place], [place] [phone] Chronic low back pain, unspecified back pain [...] Description 12/11/2024 9:00 AM EDT Office Visit [address] [address] Grant Ashley MD [address] [place] [address] 02/16/2025 2:30 PM EST Office Visit [address] [address] Name, MD Isacc [address] [place] [address] 02/26/2025 9:00 AM EST Office Visit [address] [address] Grant Ashley MD [address] [place] [address] documented as of this encounter Visit Diagnoses Diagnosis Chronic low back pain, unspecified back pain laterality, unspecified whether sciatica present Chronic low back pain, unspecified back pain laterality, unspecified whether sciatica present- Primary documented in this encounter Additional Health Concerns Assessment Noted Time PHQ-9 Depression Total Score: 0 08/08/19 24 9:27 AM EDT documented as of this encounter Care Teams Elevator Constructor Supervisor Relationship Specialty Start Date End Date Name, MD Isacc 230 [place] [address] PCP - General Family Medicine 11/03/18 documented as of this encounter
--- OUTSIDE RECORDS SUMMARY | 2024-12-10 15:52 | XMS_ITS | Encounter Summary ---
Author Organization [employer] Address [address] [facility] 7t [place] [address] Care Team Providers Care Preschool Associate Teacher Name Role Phone Name, Isacc LOJA Primary Care Provider [phone] Encounter Details Date Type Department Care Team (Late st Contact Info) Description 03/13/2024 Orders Only [facility] 230 [place] [address] Provider, MD Zoey Social History Tobacco Use [...] Description 12/11/2024 9:00 AM EDT Office Visit [address] [address] Grant Ashley MD [address] [place] [address] 02/16/2025 2:30 PM EST Office Visit [address] [address] Name, MD Isacc [address] [place] [address] 02/26/2025 9:00 AM EST Office Visit [address] [address] Grant Ashley MD [address] [place] [address] documented as of this encounter Procedures Procedure [...] documented as of this encounter Care Teams Preschool Associate Teacher Relationship Specialty Start Date End Date Name, MD Isacc 230 [place] [address] PCP - General Family Medicine 11/03/18 documented as of this encounter
--- OUTSIDE RECORDS SUMMARY | 2024-12-10 15:52 | XMS_ITS | Encounter Summary ---
Author Organization [employer] Address [address] [facility] 7t [place] [address] Care Team Providers Care Water Control Supervisor Name Role Phone Name, Isacc LOJA Primary Care Provider [phone] Reason for Visit * Reason Comments Med Refill Encounter Details Date Type Department Care Team ([facility] st Contact Info) Description 12/09/2024 Refill [facility] MEDICINE 230 [place], [place] [phone] Yvrose Hussein MD 230 [place], [place] [phone] Social History Tobacco Use Types Packs/Day Years [...] Description 12/11/2024 9:00 AM EDT Office Visit [facility] [address] [place] [address] Grant Ashley MD [address] [place] [address] 02/16/2025 2:30 PM EST Office Visit [address] [address] Name, MD Isacc [address] [place] [address] 02/26/2025 9:00 AM EST Office Visit [address] [address] Grant Ashley MD [address] [place] [address] documented as of this encounter Visit Diagnoses Not on filedocumented in this encounter Additional Health Concerns Assessment Noted Time PHQ-9 Depression Total Score: 0 09/19/19 25 9:22 AM EDT documented as of this encounter Care Teams Water Control Supervisor Relationship Specialty Start Date End Date Name, MD Isacc 230 [place] [address] PCP - General Family Medicine 11/03/18 documented as of this encounter
--- OUTSIDE RECORDS SUMMARY | 2024-12-10 15:52 | XMS_ITS | Encounter Summary ---
Author Organization [employer] Address [address] [facility] 7t [place] [address] Care Team Providers Care Reject Opener And Filler Name Role Phone Name, Isacc LOJA Primary Care Provider [phone] Reason for Visit * Reason Comments Med Refill Encounter Details Date Type Department Care Team ([facility] st Contact Info) Description 02/04/2023 Refill [facility] MEDICINE 230 [place], [place] [phone] Name, MD Isacc 230 [place] [address] Chronic low back pain, unspecified back pain [...] 9:00 AM EDT Office Visit [facility] MEDICINE [address] [place] [address] Grant Ashley MD [address] [place] [address] 02/16/2025 2:30 PM EST Office Visit [address] [address] Isacc Wood MD [address] [place] [address] 02/26/2025 9:00 AM EST Office Visit [address] [address] Grant Ashley MD [address] [place] [address] documented as of this encounter Visit Diagnoses Diagnosis Chronic low back pain, unspecified back pain laterality, unspecified whether sciatica present Chronic low back pain, unspecified back pain laterality, unspecified whether sciatica present- Primary documented in this encounter Additional Health Concerns Assessment Noted Time PHQ-9 Depression Total Score: 6 03/21/20 22 10:54 AM EST documented as of this encounter Care Teams Reject Opener And Filler Relationship Specialty Start Date End Date Isacc Wood MD [address] [place] [address] PCP - General Family Medicine 11/03/18 documented as of this encounter
--- OUTSIDE RECORDS SUMMARY | 2024-12-10 15:52 | XMS_ITS | Encounter Summary ---
Author Organization [employer] Address [address] [facility] 7t [place] [address] Care Team Providers Care Squeak Rattle And Leak Repairer Name Role Phone Name, Isacc LOJA Primary Care Provider [phone] Reason for Visit * Reason Onset Date Comments Nurse Triage 08/01/2023 Encounter Details Date Type Department Care Team ([facility] st Contact Info) Description 08/01/2023 Telephone [facility] MEDICINE 230 [place] [address] Name, MD Isacc 230 [place] [address] Nurse Triage Social History Tobacco Use Types [...] t he electric, gas, oil or water [employer] threatened to shut off services in your [...] 2:19 PM EDT No recent notes in [facility] or [facility] for pt. T/C to pt for status check via [employer] #[id number]. Pt states he will not go to [...] advised of disposition, agrees to return to [facility] ED now. Will contact EMS for transport. [...] Reason: Can't walk (unless normally can't walk) Latvian Speaker (accepted forest fire fighters dispatcher) documented in this encounter Plan of Treatment Upcoming Encounters Date Type Department Care Team (Late st Contact Info) Description 12/11/2024 9:00 AM EDT Office Visit [address] [address] Grant Ashley MD [address] [place] [address] 02/16/2025 2:30 PM EST Office Visit [address] [address] Name, MD Isacc [address] [place] [address] 02/26/2025 9:00 AM EST Office Visit [address] [address] Grant Ashley MD [address] [place] [address] documented as of this encounter Visit Diagnoses Not on filedocumented in this encounter Additional Health Concerns Assessment Noted Time PHQ-9 Depression Total Score: 6 03/21/20 22 10:54 AM EST documented as of this encounter Care Teams Squeak Rattle And Leak Repairer Relationship Specialty Start Date End Date Name, MD Isacc 230 [place] [address] PCP - General Family Medicine 11/03/18 documented as of this encounter
--- OUTSIDE RECORDS SUMMARY | 2024-12-10 15:52 | XMS_ITS | Encounter Summary ---
Author Organization [employer] Address [address] [place] [address] 7t [place] [address] Care Team Providers Care Clerk Analyst Name Role Phone Name, Isacc LOJA Primary Care Provider [phone] Reason for Visit * Reason Onset Date Comments Med Refill 11/05/2022 Encounter Details Date Type Department Care Team (Late st Contact Info) Description 11/05/2022 Telephone [facility] MEDICINE 230 [place], [place] [phone] Name, MD Isacc 230 [place] [address] Med Refill Social History Tobacco Use Types [...] 10 MG tablet to be sent to [facility]/pharmacy #[id number] - [place], [place] - [address] documented in this encounter Plan of Treatment Upcoming Encounters Date Type Department Care Team (Late st Contact Info) Description 12/11/2024 9:00 AM EDT Office Visit [facility] MEDICINE [address] [place] [address] Grant Ashley MD [address] [place] [address] 02/16/2025 2:30 PM EST Office Visit [address] [place] [address] [address] Name, MD Isacc [address] [place] [address] 02/26/2025 9:00 AM EST Office Visit [address] [place] [address] [address] Grant Ashley MD [address] [place] [address] documented as of this encounter Visit Diagnoses Not on filedocumented in this encounter Additional Health Concerns Assessment Noted Time PHQ-9 Depression Total Score: 6 03/21/20 22 10:54 AM EST documented as of this encounter Care Teams Clerk Analyst Relationship Specialty Start Date End Date Name, MD Isacc [address] [place] [address] PCP - General Family Medicine 11/03/18 documented as of this encounter
--- OUTSIDE RECORDS SUMMARY | 2024-12-10 15:52 | XMS_ITS | Encounter Summary ---
Author Organization [employer] Address 75 [facility] 7t [place] [address] Care Team Providers Care Infectious Diseases Physician Name Role Phone Name, Isacc LOJA Primary Care Provider [phone] Reason for Visit * Reason Onset Date Comments Med Refill 10/05/2022 Encounter Details Date Type Department Care Team (Late st Contact Info) Description 10/05/2022 Telephone [facility] MEDICINE 230 [place], [place] [phone] Name, MD Isacc 230 [place] [address] Med Refill Social History Tobacco Use Types [...] 12/11/2024 9:00 AM EDT Office Visit [address] [address] Grant Ashley MD [address] [place] [address] 02/16/2025 2:30 PM EST Office Visit [address] [address] Name, MD Isacc [address] [place] [address] 02/26/2025 9:00 AM EST Office Visit [address] [address] Grant Ashley MD [address] [place] [address] documented as of this encounter Visit Diagnoses Not on filedocumented in this encounter Additional Health Concerns Assessment Noted Time PHQ-9 Depression Total Score: 6 03/21/20 22 10:54 AM EST documented as of this encounter Care Teams Infectious Diseases Physician Relationship Specialty Start Date End Date NameIsacc MD [address] [place] [address] PCP - General Family Medicine 11/03/18 documented as of this encounter
--- OUTSIDE RECORDS SUMMARY | 2024-12-10 15:52 | XMS_ITS | Encounter Summary ---
Author Organization [employer] Address [address] [facility] 7t [place] [address] Care Team Providers Care Shank Cutter Name Role Phone Name, Isacc LOJA Primary Care Provider [phone] Reason for Visit * Reason Comments Med Refill Encounter Details Date Type Department Care Team ([facility] st Contact Info) Description 03/09/2023 Refill [facility] MEDICINE 230 [place], [place] [phone] Name, MD Isacc 230 [place] [address] Seasonal allergic rhinitis, unspecified trigger Social History [...] Description 12/11/2024 9:00 AM EDT Office Visit [address] [address] Grant Ashley MD [address] [place] [address] 02/16/2025 2:30 PM EST Office Visit [address] [address] Isacc Wood MD [address] [place] [address] 02/26/2025 9:00 AM EST Office Visit [address] [address] Grant Ashley MD [address] [place] [address] documented as of this encounter Visit Diagnoses Diagnosis Seasonal allergic rhinitis, unspecified trigger Chronic low back pain, unspecified back pain laterality, unspecified whether sciatica present- Primary documented in this encounter Additional Health Concerns Assessment Noted Time PHQ-9 Depression Total Score: 6 03/21/20 22 10:54 AM EST documented as of this encounter Care Teams Shank Cutter Relationship Specialty Start Date End Date Isacc Wood MD [address] [place] [address] PCP - General Family Medicine 11/03/18 documented as of this encounter
--- OUTSIDE RECORDS SUMMARY | 2024-12-10 15:52 | XMS_ITS | Encounter Summary ---
Author Organization [employer] Address [address] [facility] 7t [place] [address] Care Team Providers Care Residential Therapist Name Role Phone Name, Isacc LOJA Primary Care Provider [phone] Reason for Visit * Reason Comments Med Refill Encounter Details Date Type Department Care Team ([facility] st Contact Info) Description 07/17/2024 Refill [facility] MEDICINE 230 [place], [place] [phone] Grant Ashley MD 230 [place], [place] [phone] Chronic low back pain, unspecified back pain [...] 12/11/2024 9:00 AM EDT Office Visit [address] [address] Grant Ashley MD [address] [place] [address] 02/16/2025 2:30 PM EST Office Visit [address] [address] Name, MD Isacc [address] [place] [address] 02/26/2025 9:00 AM EST Office Visit [address] [address] Grant Ashley MD [address] [place] [address] documented as of this encounter Visit Diagnoses Diagnosis Chronic low back pain, unspecified back pain laterality, unspecified whether sciatica present Chronic low back pain, unspecified back pain laterality, unspecified whether sciatica present- Primary documented in this encounter Additional Health Concerns Assessment Noted Time PHQ-9 Depression Total Score: 0 08/08/19 24 9:27 AM EDT documented as of this encounter Care Teams Residential Therapist Relationship Specialty Start Date End Date Name, MD Isacc 230 [place] [address] PCP - General Family Medicine 11/03/18 documented as of this encounter
--- OUTSIDE RECORDS SUMMARY | 2024-12-10 15:52 | XMS_ITS | Clinical Summary ---
Author Organization [employer] Address [address] [facility] 7t [place] [address] Care Team Providers Care Magnetic Observer Name Role Phone Name, Isacc LOJA Primary Care Provider [phone] Allergies Active Allergy Reactions Criticality Noted Date [...] lding Chambers (OptiChamber Fannie) device Optichamber fannie [facility] spacer Q4h prn Active FreeStyle lancets 1 [...] per day for 10 days. 16 g 024 Active docusate sodium (Colace) 100 MG capsule [...] day. 30 tablet 11 025 2025 Active cyclobenzaprin e (Flexeril) 10 MG tablet TAKE 1 TABLET BY MOUTH TWICE DAILY NEEDED FOR BACK MUSCLE SPASM 60 tablet 2 Active metFORMIN (Glucophage) 1000 MG tablet Take 1 tablet (1,000 mg) by mouth with breakfast and with evening meal. 60 tablet 11 025 2025 Active amLODIPine (Norvasc) 5 MG tablet Take [...] with insulin pen as directed 100 each Active sertraline (Zoloft) 25 MG tablet Take 1 tablet (25 mg) by mouth Once per day for 7 days, THEN 2 tablets (50 mg) Once per day. 67 tablet 2 2024 Active LORazepam (Ativan) 0.5 MG tablet Take 1 tablet (0.5 mg) by mouth if needed each day for anxiety for up to 14 days. 14 tablet Active Buprenorphine HCl-Naloxone HCl (Suboxone) 8-2 MG SL filmIndication s:Chronic low back pain, unspecified back pain laterality, unspecified whether sciatica present Place 1 Film under the tongue 3 times daily. Do not start before January 08, 2025. 84 Film 2 025 2024 Active nicotine (Nicoderm, Step 1) 21 MG/24HR patch PLACE 1 PATCH ON THE SKIN 1 TIME EACH DAY AT THE SAME TIME. 28 patch 1 Active metoprolol succinate XL (Toprol-XL) 200 MG 24 hr tablet take 1 tablet by oral route every day 2024 Discontinued(M ed list cleanup (will not trigger notification to Pharmacy)) sildenafil (Viagra) 100 MG tablet take 1 tablet by oral route every day as needed approximately 1 hour before sexual activity 020 2024 Discontinued(M ed list cleanup (will not [...] SAME MEAL EACH DAY 180 capsule 1 025 2024 Discontinued(M ed list cleanup (will not trigger notification to Pharmacy)) Buprenorphine HCl-Naloxone HCl (Suboxone) 8-2 MG SL filmIndication s:Chronic low back pain, unspecified back pain laterality, unspecified whether sciatica present Place 1 Film under the tongue 3 times daily. Do not start before September 18, 2024. 84 Film 2 025 2024 Discontinued(R eorder (will not trigger notification to Pharmacy)) amLODIPine [...] cleanup (will not trigger notification to Pharmacy)) nicotine (Nicoderm CQ) 21 MG/24HR patch Place 1 patch on the skin 1 (one) time each day at the same time. 30 patch 025 2024 Discontinued LORazepam (Ativan) 0.5 MG tablet Take by [...] PM EDT): Rx Paxlovid x 5 days, [place] interactions module checked, Advised to call if [...] Encounters Date Type Department Care Team Description 12/09/2024 Refill [facility] [place] [phone] Yvrose Hussein MD 12/08/2024 Refill [facility] [address] [place] [address] Nurys Toribio RN Chronic low back pain, unspecified back pain laterality, unspecified whether sciatica present 12/04/2024 Travel 12/04/2024 Refill [facility] [place] [address] Grant Ashley MD Chronic low back pain, unspecified back pain laterality, unspecified whether sciatica present 12/01/2024 Orders Only [facility] External Provider, [facility] 11/23/2024 1:00 PM EDT Office Visit [facility] [place] [address] Isacc Wood MD Coronary arteriosclerosis in patient with history of previous myocardial infarction (Primary Dx); Hyperkalemia; Type 2 diabetes mellitus with other circulatory complication, without long-term current use of insulin ([facility]); Panic attacks 11/23/2024 Travel 11/19/2024 Refill [facility] [place] [address] Isacc Wood MD 11/18/2024 Telephone [facility] [place] [address] Isacc Wood MD [facility] 11/12/2024 Orders Only [facility] [place] [address] Elizabeth Munson RN 11/12/2024 Orders Only [facility] [place] [address] Elizabeth Munson RN 11/12/2024 Refill [facility] [place] [address] Elizabeth Munson RN 11/11/2024 Patient Outreach [facility] [place] [address] Isacc Wood MD Transition Of Care (Tcm) (HDF scheduled) 11/06/2024 Telephone [facility] [place] [address] Isacc Wood MD home orders 11/03/2024 Telephone [facility] [place] [place] [address] Isacc Wood MD requesting call back 11/03/2024 Telephone [facility] [place] [address] Isacc Wood MD 10/23/2024 9:15 AM EDT Office Visit [facility] [place] [address] Isacc Wood MD Dyspnea on exertion (Primary Dx); Weight gain; Leg edema; Type 2 diabetes mellitus with other circulatory complication, without long-term current use of insulin ([facility]); Urine retention; Peripheral arterial occlusive disease ([facility]/HCC) 10/23/2024 Travel 10/22/2024 Telephone [facility] [address] [place] [address] Isacc Wood MD Chart Prep 10/08/2024 1:30 PM EDT Telemedicine [facility] [place] [address] Josette Kelly RN Essential hypertension 10/08/2024 Telephone [facility] [place] [address] Isacc Wood MD 10/08/2024 Travel 10/01/2024 Telephone [facility] [place] [address] Isacc Wood MD Medication Question 09/18/2024 9:15 AM EDT Office Visit [facility] [place] [address] Grant Ashley MD Chronic low back pain, unspecified back pain laterality, unspecified whether sciatica present (Primary Dx) 09/18/2024 Travel 09/14/2024 Telephone [facility] [place] [address] Daniel Rudolph, DIANA OBAT 09/12/2024 Refill [facility] [place] [address] Isacc Wood MD 09/11/2024 Refill [facility] [address] [place] [address] Nurys Toribio, supervisor porcelain department low back pain, unspecified back pain laterality, [...] Description 12/11/2024 9:00 AM EDT Office Visit [facility] [address] [place] [address] Grant Ashley MD [address] [place], [place] [phone] 02/16/2025 2:30 PM EST Office Visit [facility] [address] [place] [address] [phone] Name, MD Isacc [address] [place], [place] [phone] 02/26/2025 9:00 AM EST Office Visit [address] [phone] Grant Ashley MD [address] [place] [address] Health Maintenance Due Date Last Done Comments CT Colonography 1960 FIT DNA/Cologuard 1960 FIT 1960 FOBT 1960 HIV Screening 1960 Sigmoidoscopy 1960 Eye Exam 1970 Hepatitis C Screening 1978 RSV Patients and Patients Aged 60 years or older (1 - Risk 60-74 years 1-dose series) 2020 Diabetes: Foot Exam 08/07/2024 08/08/2023, 08/08/2023, 08/08/2023, Additional history exists Diabetes: Urine Protein Screening 12/03/2024 12/04/2023, 03/14/2023, 02/20/2022, Additional history exists COVID-19 Vaccine ( season) 2024 02/20/2022, 02/20/2022, 11/02/2021, Additional history exists Influenza Vaccine (#1) 2024 , 12/02/2022, 02/14/2022, Additional history exists Diabetes: Hemoglobin A1C 05/26/2025 025, 06/18/2024, 11/13/2023, Additional history exists Lipid Panel 07/08/2025 07/08/2024, 11/07, 03/14/2023, Additional history exists Alcohol/Substance Use Screening 09/18/2025 09/18/2024 Depression Screening 09/18/2025 09/18/2024, 09/19/19 25 SDOH Screening 09/18/2025 09/18/2024 Tobacco Screening 11/23/2025 11/23/2024 Disability Screening 12/10/2025 12/10/2024 Colonoscopy 03/16/2027 03/13/2024, 02/06/2018 Colorectal Cancer Screening [...] Procedure Name Priority Date/Time Associated Diagnosis Comments US RENAL COMPLETE Routine 12/01/2024 4:0 0 PM EDT POCT GLYCATED HEMOGLOBIN, TOTAL Routine 11/23/2024 1:16 PM EDT Type 2 diabetes mellitus with other circulatory complication, without long-term current use of insulin ([facility]) POCT GLUCOSE Routine 11/23/2024 1:15 PM EDT Type 2 diabetes mellitus with other circulatory complication, without long-term current use of insulin (CMS/HCC) POCT GLUCOSE Routine 10/23/2024 9:21 AM EDT Type 2 diabetes mellitus with other circulatory complication, without long-term current use of insulin (CMS/HCC) COMPREHENSIVE METABOLIC PANEL Routine 10/07/2024 9:51 AM EDT Type 2 diabetes mellitus with other circulatory complication, without long-term current use of insulin (CMS/HCC) Dysuria Benign prostatic hyperplasia (BPH) with straining on urination POCT ISAURA-14 URINE DRUG SCREEN Routine 09/18/2024 9:00 AM EDT Chronic low back pain, unspecified back pain laterality, unspecified whether sciatica present LIPID PANEL, STANDARD Routine 07/08/2024 8:22 AM EDT Type 2 diabetes mellitus with other circulatory complication, without long-term current use of insulin (CMS/HCC) Dysuria Benign prostatic hyperplasia (BPH) with straining on urination COLONOSCOPY Routine 03/13/2024 2:44 PM EST ALBUMIN, RANDOM URINE W/CREATININE Routine 12/04/2023 9:22 AM EDT Type 2 diabetes mellitus with other specified complication, unspecified whether intermodal dispatcher insulin use (CMS/HCC) Hypertension, unspecified type from Last 3 Months or Most Recently Relevant to Health Maintenance Results * US Renal Complete (12/01/2024 4:00 PM EDT) Anatomical Region Laterality Modality Kidney Ultrasound 12/01/2024 4:00 PM EDT Narrative 12/01/2024 4:01 PM EDT [place] [address] Ultrasound Report Signed Patient: Vernon Lewis MR#: [id number] : 1960 Acct:[id number] Age/Sex: 64 / M ADM Date: 12/01/24 Loc: HO.US Attending Dr: Elke OGDEN Ordering Physician: Elke Higginbotham Date of Service: 12/01/24 Procedure(s): US renal BI Accession Number(s): [id number] cc: Elke HigginbothamP-BC; Name,Isacc LOJA CLINICAL HISTORY: C64.2 - Malignant neoplasm of left kidney, except renal pelvis US of kidneys Comparison: None provided Findings: Right kidney is normal in size, echogenicity and morphology, 11.5 cm in length. No calculus or hydronephrosis. 3 avascular cortical cysts at interpolar region 0.9 cm, 1.5 cm and 1.3 cm respectively. Avascular hyperechoic cortical mass without shadowing in the interpolar region adjacent to the cyst 7 x 8 x 8 mm, may reflect angiomyolipoma. Left kidney is normal in size, echogenicity and morphology, 10.9 cm in length. No calculus or hydronephrosis. Upper pole avascular cysts 1.9 cm and 1.4 cm. At the interpolar region, there is exophytic mass with mixed echogenicity and small central cystic component, no internal vascular flow, mildly increased through transmission, 1.9 x 1.5 x 2.1 cm. Limited color Doppler demonstrates unremarkable bilateral blood flow. Impression: 1. Left renal indeterminate solid cystic mass at the interpolar region, per diagnostic medical sonographer note, this is at the site of prior cryoablation, no previous relevant exam is available to compare, recommend comparison with previous exam if available, otherwise renal MRI or CT would be helpful for further evaluation. 2. 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 3. Bilateral renal cortical cysts. This document has been electronically signed by: Kim Ansari MD on 12/01/2024 16:00:54 Dictated By: Kim Ansari MD Signed By: <Electronically signed by Kim Ansari MD in OV> 12/01/24 1601 DD/ 1600 TD/TT: 12/01/24 1600 Target Trimmer: Procedure Note Donotuseinterpreter, Image - 12/01/[address] [address] Ultrasound Report Signed Patient: Vernon Lewis LMR#: [id number] : 1Acct:[id number] Age/Sex: 64 / MADM Date: 12/01/24 Loc: HO.US Attending Dr: Elke OGDEN Ordering Physician: Elke Higginbotham Date of Service: 12/01/24 Procedure(s): US renal BI Accession Number(s): [id number] cc: Elke Higginbotham; Name,Isacc LOJA CLINICAL HISTORY: C64.2 - Malignant neoplasm of left kidney, except renalpelvis US of kidneys Comparison: None provided Findings: Right kidney is normal in size, echogenicity and morphology, 11.5 cm in length. No calculus or hydronephrosis. 3 avascular cortical cysts at interpolar region 0.9 cm, 1.5 cm and 1.3 cm respectively. Avascular hyperechoic cortical mass without shadowing in the interpolar region adjacent to the cyst 7 x 8 x 8 mm, may reflect angiomyolipoma. Left kidney is normal in size, echogenicity and morphology, 10.9 cm in length. No calculus or hydronephrosis. Upper pole avascular cysts 1.9 cm and 1.4 cm. At the interpolar region, there is exophytic mass with mixed echogenicity and small central cystic component, no internal vascular flow, mildly increased through transmission, 1.9 x 1.5 x 2.1 cm. Limited color Doppler demonstrates unremarkable bilateral blood flow. Impression: 1. Left renal indeterminate solid cystic mass at the interpolar region, per diagnostic medical sonographer note, this is at the site of prior cryoablation, no previous relevant exam is available to compare, recommend comparison with previous exam if available, otherwise renal MRI or CT would be helpful for further evaluation. 2. 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 3. Bilateral renal cortical cysts. This document has been electronically signed by: Kim Ansari MD on 12/01/2024 16:00:54 Dictated By: Kim Ansari MD Signed By: <Electronically signed by Kim Ansari MD in OV> 12/01/24 1601 DD/ 1600 TD/TT: 12/01/24 1600 Target Trimmer: [facility] External Provider IMG US PROCEDURES Final Result * (ABNORMAL) POCT HGB A1C (11/23/2024 1:16 PM EDT) Hemoglobin A1C 6.5(A) 4.0 - 5.7 % QC Media Lot # [id number] Lot# Expiration Date Blood 11/23/2024 1:16 PM EDT us Isacc Wood MD POINT OF CARE TEST ENTER/EDIT OR DERABLES Final Result * POCT Glucose (11/23/2024 1:15 PM EDT) Only the most recent of2 resultswithin the time period is included. Glucose Blood, POC 182 60 - 200 mg/dL QC Media Lot # [id number] Lot# Expiration Date Blood Capillary blood specimen / Unknown 11/23/2024 1:15 PM EDT us Isacc Wood MD POINT OF CARE TEST ENTER/EDIT OR DERABLES Final Result * (ABNORMAL) Comprehensive Metabolic Panel (10/07/2024 9:51 AM EDT) Sodium 136 135 - 145 mmol/L [facility] Potassium 4.2 3.3 - 5.1 mmol/L [facility] Chloride 102 96 - 108 mmol/L [facility] Carbon Dioxide 24 22 - 29 mmol/L [facility] Anion Gap 14 12 - 20 [facility] Urea Nitrogen (BUN) 9 9 - 16 mg/dL [facility] Creatinine, Serum 0.85 0.5 - 1.4 mg/dL [facility] Estimated Glomerular Filt Rate >60 [facility] Comment:Chronic Kidney Disea se: Estimated GFR < 60 mL/min/1.96k1Tujrua Kidney Disease: Estimated GFR < 15 mL/min/1.73m2 Glucose 253(H) 60 - 115 mg/dL [facility] Calcium 9.0 8.4 - 10.2 mg/dL [facility] Bilirubin, Total 0.3 0.0 - 1.0 mg/dL [facility] Aspartate Amino Transferase 22 5 - 37 U/L [facility] Alanine Aminotransferase 15 0 - 40 U/L [facility] Total Protein 6.5 6.5 - 8.0 g/dL [facility] Albumin Level 3.9 3.5 - 5.0 g/dL [facility] Alkaline Phosphatase 87 39 - 117 U/L [facility] Blood Venous blood specimen / Unknown 10/07/2024 9:51 AM EDT 10/07/2024 11:03 AM EDT Isacc Wood MD LAB BLOOD ORDERABLES Final Resul t [facility] [address] [place] [phone] * POCT ISAURA-14 Urine Drug Screen [...] 8:22 AM EDT) Triglycerides 241(H) <150 mg/dL [facility] Comment:Slight Lipemia.Yoel able Triglyceride: less than 150 mg/dLBorderline High Triglyceride 150-199 mg/dLHigh Triglyceride: 200-499 mg/dLVery High Triglyceride: greater than or equal to 5OO mg/dL Cholesterol 213(H) <200 mg/dL [facility] Comment:Desirable Cholestero l: less than 200 mg/dLBorderline High Cholesterol: 200-239 mg/dLHigh Cholesterol: greater than 239 mg/dL LDL Cholesterol Calculated 123(H) <100 mg/dL [facility] Comment:Desirable LDL: less than 100 mg/dLNear Optimal/Above Optimal LDL: 110- 129 mg/dLBorderline High LDL: 130-159 mg/dLHigh LDL: 160-189 mg/dLVery High LDL: greater than or equal to 190 mg/dL HDL Cholesterol 42 >40 mg/dL [facility] Comment:Desirable HDL: great er than 40 mg/dL Note: This HDL assay may give artificially low results in patients with liver disease. Blood Venous blood specimen / Unknown 07/08/2024 8:22 AM EDT 07/08/2024 11:25 AM EDT us Isacc Wood MD LAB BLOOD ORDERABLES Final Resul t Performing Organization Address City/[facility] Co de Phone Number [facility] [address] [place] [phone] * Colonoscopy (03/13/2024 2:44 PM EST) Anatomical Region Laterality Modality [place]oscopy [facility]OSCOPY PROCEDURE ORDER LEEANNE Final Result * (ABNORMAL) Albumin, Random Urine W/Creatinine (12/04/2023 9:22 AM EDT) Creatinine, Urine 40.59 mg/dL [facility] Microalbumin Urine 13.0 mg/L [facility] Microalbum Creatinine Ratio Ur 32.0(H) <30 ug/mg cr [facility] Comment:Albumin/Creatinine R atio Reference Ranges: Normal: < 30 ug/mg creatinine Microalbuminuria: 30 - 300 ug/mg creatinineClinical Albuminuria: > 300 ug/mg creatinine Urine (Urine, Random) 12/04/2023 9:22 AM EDT 12/04/2023 11:02 AM EDT us Isacc Wood MD LAB URINE ORDERABLES Final Resul t [facility] [address] [place] [phone] from Last 3 Months or Most Recently Relevant to Health Maintenance Insurance MEDICARE Care Teams Magnetic Observer Relationship Specialty Start Date End Date Name, MD Isacc [address] [place] [address] PCP - General Family Medicine 11/03/18
--- OUTSIDE RECORDS SUMMARY | 2024-12-10 15:52 | XMS_ITS | Encounter Summary ---
Author Organization [employer] Address [address] [place] [address] 7 [place] [address] Care Team Providers Care Quality Consultant Name Role Phone Name, Isacc LOJA Primary Care Provider Reason for Visit * Reason Comments Med Refill Encounter Details Date Type Department Care Team (Late Contact Info) Description 01/07/2023 Refill [facility] [address] [place] [address] [phone] Name, MD Isacc [address] [place] [address] [phone] Social History Tobacco Use Types Packs/Day Years [...] Description 12/11/2024 9:00 AM EDT Office Visit [facility] [address] [place] [address] [phone] Grant Ashley MD [address] [place] [address] [phone] 02/16/2025 2:30 PM EST Office Visit [facility] [address] [place] [phone] Name, [place] [address] 02/26/2025 9:00 AM EST Office Visit [address] [address] Grant Ashley MD [address] [place] [phone] documented as of this encounter Visit Diagnoses Not on filedocumented in this encounter Additional Health Concerns Assessment Noted Time PHQ-9 Depression Total Score: 6 03/21/20 22 10:54 AM EST documented as of this encounter Care Teams Quality Consultant Relationship Specialty Start Date End Date Name, MD Isacc [address] [place] [phone] PCP - General Family Medicine 11/03/18 documented as of this encounter
--- OUTSIDE RECORDS SUMMARY | 2024-12-10 15:52 | XMS_ITS | Encounter Summary ---
Author Organization [employer] Address [address] [place] [address] Care Team Providers Care Director School Of Nursing Name Role Phone Name, Isacc LOJA Primary Care Provider [phone] Reason for Visit * Reason Onset Date Comments Med Refill 12/08/2024 Encounter Details Date Type Department Care Team (Late st Contact Info) Description 12/08/2024 Refill [facility] [address] [place] [address] Nurys Toribio RN Chronic low back pain, [...] Description 12/11/2024 9:00 AM EDT Office Visit [address] [address] Grant Ashley MD [address] [place] [phone] 02/16/2025 2:30 PM EST Office Visit [address] [address] Name, MD Isacc [address] [place] [phone] 02/26/2025 9:00 AM EST Office Visit [address] [address] Grant Ashley MD [address] [place] [phone] documented as of this encounter Visit Diagnoses Diagnosis Chronic low back pain, unspecified back pain laterality, unspecified whether sciatica present Chronic low back pain, unspecified back pain laterality, unspecified whether sciatica present- Primary documented in this encounter Additional Health Concerns Assessment Noted Time PHQ-9 Depression Total Score: 0 09/19/19 25 9:22 AM EDT documented as of this encounter Care Teams Director School Of Nursing Relationship Specialty Start Date End Date Name, MD Isacc [address] [place] [address] PCP - General Family Medicine 11/03/18 documented as of this encounter
--- OUTSIDE RECORDS SUMMARY | 2024-12-10 15:52 | XMS_ITS | Encounter Summary ---
Author Organization [employer] Address [address] [facility] 7t [place] [address] Care Team Providers Care Repair Cameraman Name Role Phone Name, Isacc LOJA Primary Care Provider [phone] Reason for Visit * Reason Comments Med Refill Encounter Details Date Type Department Care Team ([facility] st Contact Info) Description 12/04/2024 Refill [facility] [address] [place], [place] [phone] Grant Ashley MD [address] [place], [place] [phone] Chronic low back pain, unspecified back pain [...] 12/11/2024 9:00 AM EDT Office Visit [address] [address] Grant Ashley MD [address] [place] [phone] 02/16/2025 2:30 PM EST Office Visit [address] [address] NameIsacc MD [address] [place] [phone] 02/26/2025 9:00 AM EST Office Visit [address] [address] Grant Ashley MD [address] [place] [phone] documented as of this encounter Visit Diagnoses Diagnosis Chronic low back pain, unspecified back pain laterality, unspecified whether sciatica present Chronic low back pain, unspecified back pain laterality, unspecified whether sciatica present- Primary documented in this encounter Additional Health Concerns Assessment Noted Time PHQ-9 Depression Total Score: 0 09/19/19 25 9:22 AM EDT documented as of this encounter Care Teams Repair Cameraman Relationship Specialty Start Date End Date Name, MD Isacc [address] [place] [address] PCP - General Family Medicine 11/03/18 documented as of this encounter
--- OUTSIDE RECORDS SUMMARY | 2024-12-10 15:52 | XMS_ITS | Encounter Summary ---
Author Organization [employer] Address 75 [facility] 7t [place] [address] Care Team Providers Care Counter Control Operator Name Role Phone Name, Isacc LOJA Primary Care Provider [phone] Encounter Details Date Type Department Care Team (Late Contact Info) Description 09/17/[address] [address] Name, MD Isacc [address] [place] [address] Social History Tobacco Use Types Packs/Day Years [...] Description 12/11/2024 9:00 AM EDT Office Visit [address] [phone] Grant Ashley MD [address] [place] [address] 02/16/2025 2:30 PM EST Office Visit [address] [address] Name, MD Isacc [facility] [place] [phone] 02/26/2025 9:00 AM EST Office Visit [facility] [address] [place] [phone] Grant Ashley MD [address] [facility] [place], [place] [phone] documented as of this encounter Procedures Procedure Name Priority Date/Time Associated Diagnosis Comments COLONOSCOPY Routine 02/06/2018 12:51 PM EDT documented in this encounter Results * Colonoscopy (02/06/2018 12:51 PM EDT) Colonoscopy Normal Normal Narrative GloriaRosalina nolasco - 02/06/2018 12:51 PM EDT Recommended 5 years ( [facility]) Historical Provider HEALTH MAINTENANCE Final Result documented in this encounter Visit Diagnoses Not on filedocumented in this encounter Additional Health Concerns Assessment Noted Time PHQ-9 Depression Total Score: 6 03/21/20 22 10:54 AM EST documented as of this encounter Care Teams Counter Control Operator Relationship Specialty Start Date End Date Name, MD Isacc Clement [place] [phone] PCP - General Family Medicine 11/03/18 documented as of this encounter
--- OUTSIDE RECORDS SUMMARY | 2024-12-10 15:52 | XMS_ITS | Encounter Summary ---
Author Organization [employer] Address 75 [facility] 7t [place] [address] Care Team Providers Care Optical Systems Engineer Name Role Phone Name, Isacc LOJA Primary Care Provider [phone] Reason for Visit * Reason Comments Med Refill Encounter Details Date Type Department Care Team ([facility] st Contact Info) Description 05/22/2023 Refill [facility] 230 [place], [place] [phone] Name, MD Isacc 230 [place] [address] Social History Tobacco Use Types Packs/Day Years [...] Description 12/11/2024 9:00 AM EDT Office Visit [facility] [address] [place] [address] Gratn Ashley MD [address] [place] [address] 02/16/2025 2:30 PM EST Office Visit [address] [address] Name, MD Isacc [address] [place] [address] 02/26/2025 9:00 AM EST Office Visit [address] [address] Grant Ashley MD [address] [place] [address] documented as of this encounter Visit Diagnoses Not on filedocumented in this encounter Additional Health Concerns Assessment Noted Time PHQ-9 Depression Total Score: 6 03/21/20 22 10:54 AM EST documented as of this encounter Care Teams Optical Systems Engineer Relationship Specialty Start Date End Date Isacc Wood MD [address] [place] [address] PCP - General Family Medicine 11/03/18 documented as of this encounter
== END 2024-12-10 15:44 | disposition home or self-care (01) ==
LOC: HO.HUSH 14:38
PROVIDERS: PCP Internal Medicine Geriatric Medicine; Visit Provider Nurse Practitioner Family
DX: C64.2 Malignant neoplasm of left kidney, except renal pelvis (principal); R33.9 Retention of urine, unspecified
CPT/HCPCS: 99214

== ENCOUNTER 2025-01-05 07:46 | Outpatient (REF) | payer MEDICARE, SELFPAY ==
--- OUTSIDE RECORDS SUMMARY | 2025-01-05 07:57 | XMS_ITS | Encounter Summary ---
Author Organization [employer] Address [address] [facility] [address] 7t [place] [address] Care Team Providers Care Home Improvement Installer Name Role Phone Name, Isacc LOJA Primary Care Provider Encounter Details Date Type Department Care Team (Late st Contact Info) Description 11/12/2024 Orders Only [facility] 230 [place] [address] Elizabeth Munson, RN Social History Tobacco Use [...] Care Team (Late st Contact Info) Description 01/05/2025 3:45 PM EDT Office Visit [address] [address] Isacc Wood MD [address] [place] [address] 02/16/2025 2:30 PM EST Office Visit [address] [address] Isacc Wood MD [address] [place] [address] 02/26/2025 9:00 AM EST Office Visit [address] [address] Grant Ashley MD [address] [place] [address] documented as of this encounter Visit Diagnoses Not on filedocumented in this encounter Additional Health Concerns Assessment Noted Time PHQ-9 Depression Total Score: 0 09/19/19 25 9:22 AM EDT documented as of this encounter Care Teams Home Improvement Installer Relationship Specialty Start Date End Date Isacc Wood MD [address] [place] [address] PCP - General Family Medicine 11/03/18 documented as of this encounter
--- OUTSIDE RECORDS SUMMARY | 2025-01-05 07:57 | XMS_ITS | Encounter Summary ---
Author Organization [employer] Address 75 [facility] 7t [place] [address] Care Team Providers Care Wood Furniture Assembler Name Role Phone Name, Isacc LOJA Primary Care Provider [phone] Reason for Visit * Reason Comments Med Refill Encounter Details Date Type Department Care Team ([facility] st Contact Info) Description 01/02/2025 Refill [facility] 230 [place], [place] [phone] Name, MD Isacc 230 [place] [address] Social History Tobacco Use Types Packs/Day Years [...] Description 01/05/2025 3:45 PM EDT Office Visit [address] [address] Name, MD Isacc [address] [place] [address] 02/16/2025 2:30 PM EST Office Visit [address] [address] Name, MD Isacc [address] [place] [address] 02/26/2025 9:00 AM EST Office Visit [address] [address] Grant Ashley MD [address] [place] [address] documented as of this encounter Visit Diagnoses Not on filedocumented in this encounter Additional Health Concerns Assessment Noted Time PHQ-9 Depression Total Score: 0 09/19/19 9:22 AM EDT documented as of this encounter Care Teams Wood Furniture Assembler Relationship Specialty Start Date End Date Name, MD Isacc 230 [place] [address] PCP - General Family Medicine 11/03/18 documented as of this encounter
--- OUTSIDE RECORDS SUMMARY | 2025-01-05 07:57 | XMS_ITS | Encounter Summary ---
Author Organization [employer] Address 75 [facility] 7t [place] [address] Care Team Providers Care Kitchen Steward Name Role Phone Name, Isacc LOJA Primary Care Provider [phone] Reason for Visit * Reason Onset Date Comments Nurse Triage 08/01/2023 Encounter Details Date Type Department Care Team ([facility] st Contact Info) Description 08/01/[address] [facility] MEDICINE 230 [place] [address] Name, MD Isacc 230 [place] [address] Nurse Triage Social History Tobacco Use Types [...] t he electric, gas, oil or water [employer] threatened to shut off services in your [...] 2:19 PM EDT No recent notes in [facility] for pt. T/C to pt for status check via [employer] #[id number]. Pt states he will not go to [...] advised of disposition, agrees to return to [facility] ED now. Will contact EMS for transport. [...] Reason: Can't walk (unless normally can't walk) Kosovan Speaker (accepted training mgr) documented in this encounter Plan of Treatment Upcoming Encounters Date Type Department Care Team (Late st Contact Info) Description 01/05/2025 3:45 PM EDT Office Visit [address] [address] Name, MD Isacc [address] [place] [address] 02/16/2025 2:30 PM EST Office Visit [address] [address] Name, MD Isacc [address] [place] [address] 02/26/2025 9:00 AM EST Office Visit [address] [address] Grant Ashley MD [address] [place] [address] documented as of this encounter Visit Diagnoses Not on filedocumented in this encounter Additional Health Concerns Assessment Noted Time PHQ-9 Depression Total Score: 6 03/21/20 22 10:54 AM EST documented as of this encounter Care Teams Kitchen Steward Relationship Specialty Start Date End Date Name, MD Isacc 230 [place] [address] PCP - General Family Medicine 11/03/18 documented as of this encounter
--- OUTSIDE RECORDS SUMMARY | 2025-01-05 07:57 | XMS_ITS | Encounter Summary ---
Author Organization [employer] Address 75 [facility] 7t [place] [address] Care Team Providers Care Distance Education Faculty Liaison Name Role Phone Name, Isacc LOJA Primary Care Provider [phone] Reason for Visit * Reason Comments Med Refill Encounter Details Date Type Department Care Team ([facility] st Contact Info) Description 05/22/2024 Refill [facility] 230 [place], [place] [phone] Grant Ashley MD 230 [place], [place] [phone] Chronic low back pain, unspecified back pain [...] Description 01/05/2025 3:45 PM EDT Office Visit [address] [address] NameIsacc MD [address] [place] [address] 02/16/2025 2:30 PM EST Office Visit [address] [address] NameIsacc MD [address] [place] [address] 02/26/2025 9:00 AM EST Office Visit [address] [address] Grant Ashley MD [address] [place] [address] documented as of this encounter Visit Diagnoses Diagnosis Chronic low back pain, unspecified back pain laterality, unspecified whether sciatica present documented in this encounter Additional Health Concerns Assessment Noted Time PHQ-9 Depression Total Score: 0 08/08/19 24 9:27 AM EDT documented as of this encounter Care Teams Distance Education Faculty Liaison Relationship Specialty Start Date End Date Name, MD Isacc [address] [place] [address] PCP - General Family Medicine 11/03/18 documented as of this encounter
--- OUTSIDE RECORDS SUMMARY | 2025-01-05 07:57 | XMS_ITS | Encounter Summary ---
Author Organization [employer] Address 75 [facility] 7t [place] [address] Care Team Providers Care Senior Stack Engineer Name Role Phone Name, Isacc LOJA Primary Care Provider [phone] Reason for Visit * Reason Comments Med Refill Encounter Details Date Type Department Care Team ([facility] st Contact Info) Description 07/17/2024 Refill [facility] 230 [place], [place] [phone] Grant Ashley MD 230 [place], [place] [phone] Chronic low back pain, unspecified back pain [...] Description 01/05/2025 3:45 PM EDT Office Visit [address] [address] NameIsacc MD [address] [place] [address] 02/16/2025 2:30 PM EST Office Visit [address] [address] NameIsacc MD [address] [place] [address] 02/26/2025 9:00 AM EST Office Visit [address] [address] Grant Ashley MD [address] [place] [address] documented as of this encounter Visit Diagnoses Diagnosis Chronic low back pain, unspecified back pain laterality, unspecified whether sciatica present documented in this encounter Additional Health Concerns Assessment Noted Time PHQ-9 Depression Total Score: 0 08/08/19 24 9:27 AM EDT documented as of this encounter Care Teams Senior Stack Engineer Relationship Specialty Start Date End Date Name, MD Isacc 230 [place] [address] PCP - General Family Medicine 11/03/18 documented as of this encounter
--- OUTSIDE RECORDS SUMMARY | 2025-01-05 07:57 | XMS_ITS | Encounter Summary ---
Author Organization [employer] Address [address] [place] [address] 7 [place] [address] Care Team Providers Care Food Tester Name Role Phone Name, Isacc LOJA Primary Care Provider [phone] Reason for Visit * Reason Comments Med Refill Encounter Details Date Type Department Care Team (Late Contact Info) Description 01/07/2023 Refill [facility] MED[facility]INE [address] [place] [address] [phone] NameIsacc MD [address] [place] [address] [phone] Social History Tobacco Use Types Packs/Day Years [...] Department Care Team (Late Contact Info) Description 01/05/2025 3:45 PM EDT Office Visit [facility] [address] [place] [address] [phone] Isacc Wood MD [address] [place] [address] [phone] 02/16/2025 2:30 PM EST Office Visit [address] [address] Name, [place] [address] 02/26/2025 9:00 AM EST Office Visit [address] [address] Grant Ashley MD [address] [place] [address] documented as of this encounter Visit Diagnoses Not on filedocumented in this encounter Additional Health Concerns Assessment Noted Time PHQ-9 Depression Total Score: 6 03/21/20 22 10:54 AM EST documented as of this encounter Care Teams Food Tester Relationship Specialty Start Date End Date Name, MD Isacc [address] [place] [address] PCP - General Family Medicine 11/03/18 documented as of this encounter
--- OUTSIDE RECORDS SUMMARY | 2025-01-05 07:57 | XMS_ITS | Encounter Summary ---
Author Organization [employer] Address 75 [facility] 7t [place] [address] Care Team Providers Care Assembling Motor Builder Name Role Phone Name, Isacc LOJA Primary Care Provider [phone] Reason for Visit * Reason Onset Date Comments requesting call back 11/03/2024 Encounter Details Date Type Department Care Team ([facility] st Contact Info) Description 11/03/2024 Telephone [facility] 230 [place] [address] Name, MD Isacc 230 [place] [address] requesting call back Social History Tobacco Use [...] called to informed he is admi[facility] . He will call back when he's recovery from His Heart Surgery on 11/04/2024. Sending to Dr. Dion EDGAR. * Telephone Encounter - Isacc Silva - 11/03/2024 1:13 PM EDT Tc from pt requesting a call back with the phone number of where he is going to get his surgery. Nofurther details provided. Contact pt at [phone] documented in this encounter Plan of Treatment Upcoming Encounters Date Type Department Care Team (Late st Contact Info) Description 01/05/2025 3:45 PM EDT Office Visit [facility] MED[facility]INE [address] [place] [address] Name, MD Isacc 230 [place] [address] 02/16/2025 2:30 PM EST Office Visit [address] [address] Isacc Wood MD [address] [place] [address] 02/26/2025 9:00 AM EST Office Visit [address] [address] Grant Ashley MD [address] [place] [address] documented as of this encounter Visit Diagnoses Not on filedocumented in this encounter Additional Health Concerns Assessment Noted Time PHQ-9 Depression Total Score: 0 09/19/19 25 9:22 AM EDT documented as of this encounter Care Teams Assembling Motor Builder Relationship Specialty Start Date End Date NameIsacc MD [address] [place] [address] PCP - General Family Medicine 11/03/18 documented as of this encounter
--- OUTSIDE RECORDS SUMMARY | 2025-01-05 07:57 | XMS_ITS | Encounter Summary ---
Author Organization [employer] Address 75 [facility] 7t [place] [address] Care Team Providers Care Superintendent Plant Protection Name Role Phone Name, Isacc LOJA Primary Care Provider [phone] Encounter Details Date Type Department Care Team (Late st Contact Info) Description 03/13/2024 Orders Only [facility] 230 [place] [address] Provider, MD Zoey Social History Tobacco Use [...] Description 01/05/2025 3:45 PM EDT Office Visit [address] [address] NameIsacc MD [address] [place] [address] 02/16/2025 2:30 PM EST Office Visit [address] [address] Name, MD Isacc [address] [place] [address] 02/26/2025 9:00 AM EST Office Visit [address] [address] Grant Ashley MD [address] [place] [address] documented as of this encounter Procedures Procedure [...] as of this encounter Care Teams Superintendent Plant Protection Relationship Specialty Start Date End Date Name, MD Isacc 230 [place] [address] PCP - General Family Medicine 11/03/18 documented as of this encounter
--- OUTSIDE RECORDS SUMMARY | 2025-01-05 07:57 | XMS_ITS | Encounter Summary ---
Author Organization [employer] Address [address] [facility] [address] 7t [place] [address] Care Team Providers Care Senior Technical Support Engineer Name Role Phone Name, Isacc LOJA Primary Care Provider [phone] Encounter Details Date Type Department Care Team (Late st Contact Info) Description 11/12/2024 Orders Only [facility] MEDICINE 230 [place] [address] Elizabeth Munson, RN Social History Tobacco Use [...] Description 01/05/2025 3:45 PM EDT Office Visit [address] [address] Isacc Wood MD [address] [place] [address] 02/16/2025 2:30 PM EST Office Visit [address] [address] Isacc Wood MD [address] [place] [address] 02/26/2025 9:00 AM EST Office Visit [address] [address] Grant Ashley MD [address] [place] [address] documented as of this encounter Visit Diagnoses Not on filedocumented in this encounter Additional Health Concerns Assessment Noted Time PHQ-9 Depression Total Score: 0 09/19/19 25 9:22 AM EDT documented as of this encounter Care Teams Senior Technical Support Engineer Relationship Specialty Start Date End Date Isacc Wood MD [address] [place] [address] PCP - General Family Medicine 11/03/18 documented as of this encounter
--- OUTSIDE RECORDS SUMMARY | 2025-01-05 07:57 | XMS_ITS | Encounter Summary ---
Author Organization [employer] Address 75 [facility] 7t [place] [address] Care Team Providers Care Web Marketing Coordinator Name Role Phone Name, Isacc LOJA Primary Care Provider [phone] Reason for Visit * Reason Onset Date Comments Pain med, suboxone, CRS Dept 10/28/2023 Encounter Details Date Type Department Care Team (Late st Contact Info) Description 10/28/2023 Telephone [facility] 230 [place] [address] Name, MD Isacc 230 [place], [place] [phone] Pain med, suboxone, CRS Dept Social History [...] like patient had been receiving. TC via P/I#[id number], reviewed with patient that CRS department has [...] 5-325 MG tablet To be sent to: [facility]/pharmacy #[id number] - [place], [place] - [facility] States leaves on vacation tomorrow to [place] 10/29/23. documented in this encounter Plan of Treatment Upcoming Encounters Date Type Department Care Team (Late st Contact Info) Description 01/05/2025 3:45 PM EDT Office Visit [address] [address] Name, [place] [address] 02/16/2025 2:30 PM EST Office Visit [address] [address] Name, [place] [address] 02/26/2025 9:00 AM EST Office Visit [address] [address] Grant Ashley MD [address] [place] [address] documented as of this encounter Visit Diagnoses Not on filedocumented in this encounter Additional Health Concerns Assessment Noted Time PHQ-9 Depression Total Score: 0 08/08/19 24 9:27 AM EDT documented as of this encounter Care Teams Web Marketing Coordinator Relationship Specialty Start Date End Date Name, MD Isacc [address] [place] [address] PCP - General Family Medicine 11/03/18 documented as of this encounter
--- OUTSIDE RECORDS SUMMARY | 2025-01-05 07:57 | XMS_ITS | Encounter Summary ---
Author Organization [employer] Address 75 [facility] 7t [place] [address] Care Team Providers Care Room Attendants Name Role Phone Name, Isacc LOJA Primary Care Provider [phone] Reason for Visit * Reason Comments Med Refill Encounter Details Date Type Department Care Team ([facility] st Contact Info) Description 12/04/2024 Refill [facility] 230 [place], [place] [phone] Grant Ashley MD 230 [place], [place] [phone] Chronic low back pain, unspecified back pain [...] Description 01/05/2025 3:45 PM EDT Office Visit [address] [address] NameIsacc MD [address] [place] [address] 02/16/2025 2:30 PM EST Office Visit [address] [address] NameIsacc MD [address] [place] [address] 02/26/2025 9:00 AM EST Office Visit [address] [address] Grant Ashley MD [address] [place] [address] documented as of this encounter Visit Diagnoses Diagnosis Chronic low back pain, unspecified back pain laterality, unspecified whether sciatica present documented in this encounter Additional Health Concerns Assessment Noted Time PHQ-9 Depression Total Score: 0 09/19/19 25 9:22 AM EDT documented as of this encounter Care Teams Room Attendants Relationship Specialty Start Date End Date Name, MD Isacc 230 [place] [address] PCP - General Family Medicine 11/03/18 documented as of this encounter
--- OUTSIDE RECORDS SUMMARY | 2025-01-05 07:57 | XMS_ITS | Encounter Summary ---
Author Organization [employer] Address 75 [facility] 7t [place] [address] Care Team Providers Care Tour Narrator Name Role Phone Name, Isacc LOJA Primary Care Provider [phone] Reason for Visit * Reason Onset Date Comments Med Refill 10/05/2022 Encounter Details Date Type Department Care Team (Late st Contact Info) Description 10/05/2022 Telephone [facility] MEDICINE 230 [place], [place] [phone] Name, MD Isacc 230 [place] [address] Med Refill Social History Tobacco Use Types [...] Description 01/05/2025 3:45 PM EDT Office Visit [address] [address] NameIsacc MD [address] [place] [address] 02/16/2025 2:30 PM EST Office Visit [address] [address] Name, MD Isacc [address] [place] [address] 02/26/2025 9:00 AM EST Office Visit [address] [address] Grant Ashley MD [address] [place] [address] documented as of this encounter Visit Diagnoses Not on filedocumented in this encounter Additional Health Concerns Assessment Noted Time PHQ-9 Depression Total Score: 6 03/21/20 22 10:54 AM EST documented as of this encounter Care Teams Tour Narrator Relationship Specialty Start Date End Date NameIsacc MD [address] [place] [address] PCP - General Family Medicine 11/03/18 documented as of this encounter
--- OUTSIDE RECORDS SUMMARY | 2025-01-05 07:57 | XMS_ITS | Encounter Summary ---
Author Organization [employer] Address 75 [facility] 7t [place] [address] Care Team Providers Care Feeder Switchboard Operator Name Role Phone Name, Isacc LOJA Primary Care Provider [phone] Reason for Visit * Reason Comments Med Refill Encounter Details Date Type Department Care Team ([facility] st Contact Info) Description 03/09/2023 Refill [facility] MEDICINE 230 [place], [place] [phone] Name, MD Isacc 230 [place] [address] Seasonal allergic rhinitis, unspecified trigger Social History [...] Description 01/05/2025 3:45 PM EDT Office Visit [address] [address] NameIsacc MD [address] [place] [address] 02/16/2025 2:30 PM EST Office Visit [address] [address] Name, MD Isacc [address] [place] [address] 02/26/2025 9:00 AM EST Office Visit [address] [address] Grant Ashley MD [address] [place] [address] documented as of this encounter Visit Diagnoses Diagnosis Seasonal allergic rhinitis, unspecified trigger documented in this encounter Additional Health Concerns Assessment Noted Time PHQ-9 Depression Total Score: 6 03/21/20 22 10:54 AM EST documented as of this encounter Care Teams Feeder Switchboard Operator Relationship Specialty Start Date End Date NameIsacc MD [address] [place] [address] PCP - General Family Medicine 11/03/18 documented as of this encounter
--- OUTSIDE RECORDS SUMMARY | 2025-01-05 07:57 | XMS_ITS | Encounter Summary ---
Author Organization [employer] Address [address] [place] [address] 7t [place] [address] Care Team Providers Care Hall Cleaner Name Role Phone Name, Isacc LOJA Primary Care Provider [phone] Reason for Visit * Reason Onset Date Comments Med Refill 11/05/2022 Encounter Details Date Type Department Care Team (Late st Contact Info) Description 11/05/2022 Telephone [facility] MEDICINE [address] [place], [place] [phone] Name, MD Isacc 230 [place] [address] Med Refill Social History Tobacco Use Types [...] to be sent to [facility]/pharmacy #[id number] - [place], [place] - [address] documented in this encounter Plan of Treatment Upcoming Encounters Date Type Department Care Team (Late st Contact Info) Description 01/05/2025 3:45 PM EDT Office Visit [facility] MED[facility] [address] [place] [address] Name, MD Isacc [address] [place] [address] 02/16/2025 2:30 PM EST Office Visit [address] [address] Name, MD Isacc [address] [place] [address] 02/26/2025 9:00 AM EST Office Visit [address] [address] Grant Ashley MD [address] [place] [address] documented as of this encounter Visit Diagnoses Not on filedocumented in this encounter Additional Health Concerns Assessment Noted Time PHQ-9 Depression Total Score: 6 03/21/20 22 10:54 AM EST documented as of this encounter Care Teams Hall Cleaner Relationship Specialty Start Date End Date Name, MD Isacc [address] [place] [address] PCP - General Family Medicine 11/03/18 documented as of this encounter
--- OUTSIDE RECORDS SUMMARY | 2025-01-05 07:57 | XMS_ITS | Encounter Summary ---
Author Organization [employer] Address [address] 7t [place] [address] Care Team Providers Care Manager Star Name Role Phone Name, Isacc LOJA Primary Care Provider [phone] Encounter Details Date Type Department Care Team ([facility] st Contact Info) Description 11/03/2024 Telephone [facility] MEDICINE [address] [place], [place] [phone] Name, MD Isacc [address] [place], [place] [phone] Social History Tobacco Use Types Packs/Day Years [...] Description 01/05/2025 3:45 PM EDT Office Visit [address] [address] Isacc Wood MD [address] [place] [address] 02/16/2025 2:30 PM EST Office Visit [address] [address] Isacc Wood MD [address] [place] [address] 02/26/2025 9:00 AM EST Office Visit [address] [address] Grant Ashley MD [address] [place] [address] documented as of this encounter Visit Diagnoses Not on filedocumented in this encounter Additional Health Concerns Assessment Noted Time PHQ-9 Depression Total Score: 0 09/19/19 25 9:22 AM EDT documented as of this encounter Care Teams Manager Star Relationship Specialty Start Date End Date Isacc Wood MD [address] [place] [address] PCP - General Family Medicine 11/03/18 documented as of this encounter
--- OUTSIDE RECORDS SUMMARY | 2025-01-05 07:57 | XMS_ITS | Encounter Summary ---
Author Organization [employer] Address [address] [place] [address] 7t [place] [address] Care Team Providers Care Outsole Scheduler Name Role Phone Name, Isacc LOJA Primary Care Provider [phone] Encounter Details Date Type Department Care Team (Late Contact Info) Description 09/17/[address] [phone] NameIsacc MD [address] [place] [address] [phone] Social History Tobacco Use Types Packs/Day Years [...] Description 01/05/2025 3:45 PM EDT Office Visit [address] [phone] Isacc Wood MD [address] [place] [address] [phone] 02/16/2025 2:30 PM EST Office Visit [address] [address] Name, MD Isacc [address] [facility] [place], [place] [phone] 02/26/2025 9:00 AM EST Office Visit [facility] MEDICINE 230 [place] Wol[place] [phone] Grant Ashley MD [address] [place], [place] [phone] documented as of this encounter Procedures Procedure Name Priority Date/Time Associated Diagnosis Comments COLONOSCOPY Routine 02/06/2018 12:51 PM EDT documented in this encounter Results * Colonoscopy (02/06/2018 12:51 PM EDT) Colonoscopy Normal Normal Narrative GloriaRosalina nolasco - 02/06/2018 12:51 PM EDT Recommended 5 years ( [facility]) Historical Provider HEALTH MAINTENANCE Final Result documented in this encounter Visit Diagnoses Not on filedocumented in this encounter Additional Health Concerns Assessment Noted Time PHQ-9 Depression Total Score: 6 03/21/20 22 10:54 AM EST documented as of this encounter Care Teams Outsole Scheduler Relationship Specialty Start Date End Date Name, [place] [address] PCP - General Family Medicine 11/03/18 documented as of this encounter
--- OUTSIDE RECORDS SUMMARY | 2025-01-05 07:57 | XMS_ITS | Encounter Summary ---
Author Organization [employer] Address [address] [facility] 7t [place] [address] Care Team Providers Care Director Of Informatics Name Role Phone Name, Isacc LOJA Primary Care Provider [phone] Reason for Visit * Reason Comments Med Refill Encounter Details Date Type Department Care Team ([facility] st Contact Info) Description 02/05/2023 Refill [facility] MEDICINE 230 [place], [place] [phone] Name, MD Isacc 230 [place] [address] Social History Tobacco Use Types Packs/Day Years [...] Description 01/05/2025 3:45 PM EDT Office Visit [facility] MEDICINE [address] [place] [address] NameIsacc MD [address] [place] [address] 02/16/2025 2:30 PM EST Office Visit [address] [address] Name, MD Isacc [address] [place] [address] 02/26/2025 9:00 AM EST Office Visit [address] [address] Grant Ashley MD [address] [place] [address] documented as of this encounter Visit Diagnoses Not on filedocumented in this encounter Additional Health Concerns Assessment Noted Time PHQ-9 Depression Total Score: 6 03/21/20 22 10:54 AM EST documented as of this encounter Care Teams Director Of Informatics Relationship Specialty Start Date End Date NameIsacc MD [address] [place] [address] PCP - General Family Medicine 11/03/18 documented as of this encounter
--- OUTSIDE RECORDS SUMMARY | 2025-01-05 07:57 | XMS_ITS | Encounter Summary ---
Author Organization [employer] Address [address] [facility] 7t [place] [address] Care Team Providers Care Web Consultant Name Role Phone Name, Isacc LOJA Primary Care Provider [phone] Reason for Visit * Reason Onset Date Comments FYI 11/18/2024 Encounter Details Date Type Department Care Team ([facility] st Contact Info) Description 11/18/2024 Telephone [facility] MEDICINE 230 [place] [address] Name, MD Isacc 230 [place] [address] FYI Social History Tobacco Use Types Packs/Day [...] any questions you can contact pt at [phone]. (Danish Speaker) documented in this encounter Plan of Treatment Upcoming Encounters Date Type Department Care Team (Late st Contact Info) Description 01/05/2025 3:45 PM EDT Office Visit [facility] MEDICINE [address] [place] [phone] Name, MD Isacc [address] [place] [address] 02/16/2025 2:30 PM EST Office Visit [address] [address] Name, MD Isacc [address] [place] [address] 02/26/2025 9:00 AM EST Office Visit [facility] MEDICINE 230 [place] [address] Grant Ashley MD [address] [place] [address] documented as of this encounter Visit Diagnoses Not on filedocumented in this encounter Additional Health Concerns Assessment Noted Time PHQ-9 Depression Total Score: 0 09/19/19 25 9:22 AM EDT documented as of this encounter Care Teams Web Consultant Relationship Specialty Start Date End Date Name, MD Isacc 230 [place] [address] PCP - General Family Medicine 11/03/18 documented as of this encounter
--- OUTSIDE RECORDS SUMMARY | 2025-01-05 07:57 | XMS_ITS | Encounter Summary ---
Author Organization [employer] Address [address] [facility] 7t [place] [address] Care Team Providers Care Wire Frame Maker Name Role Phone Name, Isacc LOJA Primary Care Provider [phone] Reason for Visit * Reason Comments Med Refill Encounter Details Date Type Department Care Team ([facility] st Contact Info) Description 05/22/2023 Refill [facility] MEDICINE 230 [place], [place] [phone] Name, MD Isacc 230 [place] [address] Social History Tobacco Use Types Packs/Day Years [...] Description 01/05/2025 3:45 PM EDT Office Visit [facility] MEDICINE [address] [place] [address] NameIsacc MD [address] [place] [address] 02/16/2025 2:30 PM EST Office Visit [address] [address] Name, MD Isacc [address] [place] [address] 02/26/2025 9:00 AM EST Office Visit [address] [address] Grant Ashley MD [address] [place] [address] documented as of this encounter Visit Diagnoses Not on filedocumented in this encounter Additional Health Concerns Assessment Noted Time PHQ-9 Depression Total Score: 6 03/21/20 22 10:54 AM EST documented as of this encounter Care Teams Wire Frame Maker Relationship Specialty Start Date End Date NameIscac MD [address] [place] [address] PCP - General Family Medicine 11/03/18 documented as of this encounter
--- OUTSIDE RECORDS SUMMARY | 2025-01-05 07:57 | XMS_ITS | Encounter Summary ---
Author Organization [employer] Address [address] [facility] 7t [place] [address] Care Team Providers Care Recording Studio Internship Name Role Phone Name, Isacc LOJA Primary Care Provider Reason for Visit * Reason Comments Med Refill Encounter Details Date Type Department Care Team ([facility] st Contact Info) Description 02/04/2023 Refill [facility] MEDICINE 230 [place], [place] [phone] Name, MD Isacc 230 [place] [address] Chronic low back pain, unspecified back pain [...] Description 01/05/2025 3:45 PM EDT Office Visit [address] [address] Isacc Wood MD [address] [place] [address] 02/16/2025 2:30 PM EST Office Visit [address] [address] Isacc Wood MD [address] [place] [address] 02/26/2025 9:00 AM EST Office Visit [address] [address] Grant Ashley MD [address] [place] [address] documented as of this encounter Visit Diagnoses Diagnosis Chronic low back pain, unspecified back pain laterality, unspecified whether sciatica present documented in this encounter Additional Health Concerns Assessment Noted Time PHQ-9 Depression Total Score: 6 03/21/20 22 10:54 AM EST documented as of this encounter Care Teams Recording Studio Internship Relationship Specialty Start Date End Date Isacc Wood MD [address] [place] [address] PCP - General Family Medicine 11/03/18 documented as of this encounter
--- OUTSIDE RECORDS SUMMARY | 2025-01-05 07:57 | XMS_ITS | Encounter Summary ---
Author Organization [employer] Address [address] [facility] [facility] [address] 7t [place] [address] Care Team Providers Care Concessionist Name Role Phone Name, Isacc LOJA Primary Care Provider [phone] Encounter Details Date Type Department Care Team (Latest Contact Info) Description 01/04/2025 Travel Social History Tobacco Use Types Packs/Day Years [...] Description 01/05/2025 3:45 PM EDT Office Visit [address] [address] Isacc Wood MD [address] [place] [address] 02/16/2025 2:30 PM EST Office Visit [address] [address] Name, MD Isacc [address] [place] [address] 02/26/2025 9:00 AM EST Office Visit [address] [address] Grant Ashley MD [address] [place] [address] documented as of this encounter Visit Diagnoses Not on filedocumented in this encounter Additional Health Concerns Assessment Noted Time PHQ-9 Depression Total Score: 0 09/19/19 25 9:22 AM EDT documented as of this encounter Care Teams Concessionist Relationship Specialty Start Date End Date Isacc Wood MD [address] [place] [address] PCP - General Family Medicine 11/03/18 documented as of this encounter
--- OUTSIDE RECORDS SUMMARY | 2025-01-05 07:57 | XMS_ITS | Clinical Summary ---
Author Organization [employer] Address [address] [place] [address] Care Team Providers Care Crop Scout Name Role Phone Name, Isacc LOJA Primary Care Provider [phone] Allergies Active Allergy Reactions Criticality Noted Date Comments Levofloxacin 02/26/2019 Other reaction(s): Rash, Rash Medications albuterol 108 (90 Base) MCG/ACT inhaler inhale 2 puff by inhalation route every 4 - 6 hours as needed 04/20/19 21 Active ascorbic acid (Vitamin C) 500 MG tablet Take one tablet by mouth daily 04/16/19 19 Active aspirin 81 MG EC tablet take 1 tablet by oral route every day 08/30/19 19 Active multivitamin (Theragran) tablet take 1 tablet by oral route every day with food 04/16/19 19 Active Alcohol Swabs (Alcohol Prep) pads Use to check fasting in morning and as needed Active Blood Glucose Monitoring Suppl (FreeStyle Lite) w/Device kit Use to check sugar fasting every morning and as needed Active Spacer/Aero-Ho lding Chambers (OptiChamber Fannie) device Optichamber fannie [facility] spacer Q4h prn Active FreeStyle lancets 1 each by Other route if needed. 28 gauge lancets Use 1 lancet by To Skin route every morning fasting and as needed Active hydrOXYzine HCl (Atarax) 25 MG tabletIndicati ons:Seasonal allergic rhinitis, unspecified trigger TOME MAXIMINO TABLETA DOS VECES AL MARILYN CUANDO SEA NECESARIO 180 tablet 04/27/19 23 Active glucose blood (FREESTYLE LITE) test strip Use to check sugar fasting every morning and as needed 100 each 11 04/23/19 24 Active naloxone (Narcan) 4 mg/0.1 mL nasal sprayIndicatio ns:Chronic low back pain, unspecified back pain laterality, unspecified whether sciatica present ADMINISTER 1 SPRAY INTO AFFECTED NOSTRIL(S) IF NEEDED FOR OPIOID REVERSAL. MAY REPEAT EVERY 2-3 MINUTES IF NEEDED, ALTERNATING NOSTRILS, UNTIL MEDICAL ASSISTANCE BECOMES AVAILABLE. 2 each 3 07/15/19 24 Active fluticasone (Flonase) 50 MCG/ACT nasal spray Administer 1 spray into each nostril Once per day for 10 days. 16 g 12/23/19 24 Active docusate sodium (Colace) 100 MG capsule 1 or 2 capsules PO BID prn constipation (stool softener). 120 capsule 3 01/17/20 24 Active sennosides (Senokot) 8.6 MG tablet 1 or 2 tablet PO BID prn constipation (intestinal stimulant). 120 tablet 3 01/17/20 24 Active polyethylene glycol, PEG, 3350 (MiraLax) 17 GM/SCOOP powder 17 gms (1 capful) in 8 ounces of liquids once daily as needed for constipation. 510 g 1 01/17/20 24 Active lactulose (Chronulac) 10 GM/15ML solution Take 15 mL (10 g) by mouth 2 times daily. 473 mL 2 01/29/20 24 2024 Active atorvastatin (Lipitor) 80 MG tablet TAKE 1 TABLET BY MOUTH EVERY DAY 90 tablet 3 04/30/19 25 Active ezetimibe (Zetia) 10 MG tablet Take 1 tablet (10 mg) by mouth Once per day. 30 tablet 11 07/09/19 25 2025 Active metFORMIN (Glucophage) 1000 MG tablet Take 1 tablet (1,000 mg) by mouth with breakfast and with evening meal. 60 tablet 11 10/03/19 25 2025 Active amLODIPine (Norvasc) 5 MG tablet Take 1 tablet by mouth Once per day. 10/23/19 25 Active terazosin (Hytrin) 5 MG capsule Take 2 capsules by mouth at bedtime. 10/14/19 25 Active metoprolol succinate XL (Toprol-XL) 100 MG 24 hr tablet Take 1 tablet by mouth Once per day. 11/11/19 25 Active ticagrelor (Brilinta) 90 MG tablet Take 1 tablet by mouth 2 times daily. 11/11/19 25 Active isosorbide mononitrate ER (Imdur) 30 MG 24 hr tablet Take 1 tablet by mouth before breakfast. 11/16/19 25 Active bethanechol (Urecholine) 50 MG tablet Take 50 mg by mouth 2 times daily. 10/14/19 Active insulin glargine (Lantus SoloStar) 100 UNIT/ML pen Inject 10 Units under the skin at bedtime. 3 mL 11/24/19 25 2025 Active pen needle 32G x 4 mm misc Use with insulin pen as directed 100 each 11/24/19 25 Active sertraline (Zoloft) 25 MG tablet Take 1 tablet (25 mg) by mouth Once per day for 7 days, THEN 2 tablets (50 mg) Once per day. 67 tablet 2 11/24/19 25 Active LORazepam (Ativan) 0.5 MG tablet Take 1 tablet (0.5 mg) by mouth if needed each day for anxiety for up to 14 days. 14 tablet 11/24/19 25 Active Buprenorphine HCl-Naloxone HCl (Suboxone) 8-2 MG SL filmIndication s:Chronic low back pain, unspecified back pain laterality, unspecified whether sciatica present Place 1 Film under the tongue 3 times daily. Do not start before January 08, 2025. 84 Film 2 01/09/20 25 2024 Active nicotine (Nicoderm, Step 1) 21 MG/24HR patch PLACE 1 PATCH ON THE SKIN 1 TIME EACH DAY AT THE SAME TIME. 28 patch 1 12/11/19 25 Active cyclobenzaprin e (Flexeril) 10 MG tablet TAKE 1 TABLET BY MOUTH TWICE DAILY NEEDED FOR BACK MUSCLE SPASM 60 tablet 2 12/16/19 25 Active Buprenorphine HCl-Naloxone HCl (Suboxone) 8-2 MG SL filmIndication s:Chronic low back pain, unspecified back pain laterality, unspecified whether sciatica present Place 1 Film under the tongue 3 times daily. Do not start before September 18, 2024. 84 Film 2 09/19/19 25 2024 Discontinued(R eorder (will not trigger notification to Pharmacy)) cyclobenzaprin e (Flexeril) 10 MG tablet TAKE 1 TABLET BY MOUTH TWICE DAILY NEEDED FOR BACK MUSCLE SPASM 60 tablet 2 09/15/19 25 2024 Discontinued nicotine (Nicoderm CQ) 21 MG/24HR patch Place 1 patch on the skin 1 (one) time each day at the same time. 30 patch 11/13/19 25 2024 Discontinued Active Problems Patient Care Coordination No te Formatting of this note migh t be different from the original. C3/CM Alma Rosa Milian RN Problem Noted Date Diagnosed Date COVID-19 virus infection 12/23/2023 Assessment & Plan (12/23/2023 2:56 PM EDT): Rx Paxlovid x 5 days, [place] interactions module checked, Advised to call if [...] 100 F without medication). 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 (CM S/HCC) 03/17/2022 Seasonal allergic rhinitis 03/17/2022 Peripheral vascular disease 03/17/2022 Tobacco use 03/17/2022 Overview (03/17/2022): Tobacco use and exposure finding per previous EHR History of colon polyps 03/17/2022 Overview (03/17/2022): History of polyp of colon per previous EHR 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 Peripheral arterial occlusive disease 06/26/2018 Chronic gastritis [...] Encounters Date Type Department Care Team Description 01/04/2025 Travel 01/02/2025 Refill [facility] [address] [place] [address] Name, MD Isacc 12/21/2024 11:15 AM EDT Telemedicine [facility] [address] [place] [address] Sadia Leslie, DIANA Hypertension, unspecified type 12/21/2024 Travel 12/15/2024 Refill [facility] [address] [place] [address] Anita Trujillo MD 12/11/2024 9:00 AM EDT Office Visit [facility] [address] [place] [address] Grant Ashley MD Chronic low back pain, unspecified back pain laterality, unspecified whether sciatica present (Primary Dx) 12/11/2024 Travel 12/09/2024 Refill [facility] [address] [facility] [place] [address] Yvrose Hussein MD 12/08/2024 Refill [facility] [address] [facility] [place] [address] Nurys Toribio RN Chronic low back pain, unspecified back pain laterality, unspecified whether sciatica present 12/04/2024 Travel 12/04/2024 Refill [facility] [address] [facility] [place] [address] Grant Ashley MD Chronic low back pain, unspecified back pain laterality, unspecified whether sciatica present 12/01/2024 Orders Only [facility] External Provider, [facility] 11/23/2024 1:00 PM EDT Office Visit [facility] [place] [address] Isacc Wood MD Coronary arteriosclerosis in patient with history of previous myocardial infarction (Primary Dx); Hyperkalemia; Type 2 diabetes mellitus with other circulatory complication, without long-term current use of insulin ([facility]); Panic attacks 11/23/2024 Travel 11/19/2024 Refill [facility] [place] [address] Isacc Wood MD 11/18/2024 Telephone [facility] [place] [address] Isacc Wood MD [facility] 11/12/2024 Orders Only [facility] [address] [facility] [place] [address] Elizabeth Munson RN 11/12/2024 Orders Only [facility] [address] [facility] [place] [address] Elizabeth Munson, DIANA 11/12/2024 Refill [facility] [address] [facility] [place] [address] Elizabeth Munson RN 11/11/2024 Patient Outreach [facility] [address] [place] [address] Isacc Wood MD Transition Of Care (Tcm) (HDF scheduled) 11/06/2024 Telephone [facility] [address] [facility] [place] [address] Isacc Wood MD home orders 11/03/2024 Telephone [facility] [place] [address] Isacc Wood MD requesting call back 11/03/[address] [address] Isacc Wood MD 10/23/2024 9:15 AM EDT Office Visit [address] [place] [address] Isacc Wood MD Dyspnea on exertion (Primary Dx); Weight gain; Leg edema; Type 2 diabetes mellitus with other circulatory complication, without long-term current use of insulin ([facility]); Urine retention; Peripheral arterial occlusive disease ([facility]) 10/23/2024 Travel 10/22/[address] [address] Isacc Wood MD Chart Prep 10/08/2024 1:30 PM EDT Telemedicine [facility] [address] Josette Kelly, DIANA Essential hypertension 10/08/[address] [address] Isacc Wood MD 10/08/2024 Travel from Last 3 Months Immunizations Immunization Administration [...] 01/05/2025 3:45 PM EDT Office Visit [address] [address] Isacc Wood MD [address] [place] [address] 02/16/2025 2:30 PM EST Office Visit [address] [address] Isacc Wood MD [address] [place] [address] 02/26/2025 9:00 AM EST Office Visit [address] [address] Grant Ashley MD [address] [place] [id number] Health Maintenance Due Date Last Done Comments [...] Additional history exists Lipid Panel 07/08/2025 07/08/2024, 0811/2023, 03/14/2023, Additional history exists Alcohol/Substance Use Screening [...] use of insulin (CMS/HCC) POCT GLUCOSE Routine 11/23/2024 1:15 PM EDT [...] prostatic hyperplasia (BPH) with straining on urination LIPID PANEL, STANDARD Routine 07/08/2024 8:22 AM EDT Type 2 diabetes mellitus with other circulatory complication, without long-term current use of insulin (CMS/HCC) Dysuria Benign prostatic hyperplasia (BPH) with straining on urination COLONOSCOPY Routine 03/13/2024 2:44 PM EST ALBUMIN, RANDOM URINE W/CREATININE Routine 12/04/2023 9:22 AM EDT Type 2 diabetes mellitus with other specified complication, unspecified whether mcfp insulin use (CMS/HCC) Hypertension, unspecified type from Last 3 Months or Most Recently Relevant to Health Maintenance Results * US Renal Complete (12/01/2024 4:00 PM EDT) Anatomical Region Laterality Modality Kidney Ultrasound 12/01/2024 4:00 PM EDT Narrative 12/01/2024 4:01 PM EDT [address] [address] Ultrasound Report Signed Patient: Vernon Lewis MR#: [id number] : 1960 Acct:[id number] Age/Sex: 64 / M ADM Date: 12/01/24 Loc: HO.US Attending Dr: Elke OGDEN Ordering Physician: Elke Higginbotham Date of Service: 12/01/24 Procedure(s): US renal BI Accession Number(s): [id number] cc: Elke Higginbotham; Name,Isacc LOJA CLINICAL HISTORY: [...] cystic mass at the interpolar region, per member service representative note, this is at the site of [...] 12/01/24 1601 DD/ 1600 TD/TT: 12/01/24 1600 Dewaxer: Procedure Note Donotuseinterpreter, Image - 12/01/[address] [address] Ultrasound Report Signed Patient: Vernon Lewis LMR#: [id number] : 1Acct:[id number] Age/Sex: 64 / MADM Date: 12/01/24 Loc: HO.US Attending Dr: Elke OGDEN Ordering Physician: Elke Higginbotham Date of Service: 12/01/24 Procedure(s): US renal BI Accession Number(s): [id number] cc: Elke Higginbotham; Name,Isacc LOJA CLINICAL HISTORY: [...] cystic mass at the interpolar region, per member service representative note, this is at the site of [...] 12/01/24 1601 DD/ 1600 TD/TT: 12/01/24 1600 Dewaxer: [facility] External Provider IMG US PROCEDURES Final [...] specimen / Unknown 11/23/2024 1:15 PM EDT Isacc Wood MD POINT OF CARE TEST ENTER/EDIT OR DERABLES Final Result * (ABNORMAL) Comprehensive Metabolic Panel (10/07/2024 9:51 AM EDT) Sodium 136 135 - 145 mmol/L [facility] Potassium 4.2 3.3 - 5.1 mmol/L [facility] Chloride 102 96 - 108 mmol/L [facility] Carbon Dioxide 24 22 - 29 mmol/L [facility] Anion Gap 14 12 - 20 [facility] Urea Nitrogen (BUN) 9 9 - 16 mg/dL [facility] Creatinine, Serum 0.85 0.5 - 1.4 mg/dL [facility] Estimated Glomerular Filt Rate >60 [facility] Comment:Chronic Kidney Disea se: Estimated GFR < 60 mL/min/[id number] Kidney Disease: Estimated GFR < 15 mL/min/1.73m2 Glucose 253(H) 60 - 115 mg/dL [facility] Calcium 9.0 8.4 - 10.2 mg/dL [facility] Bilirubin, Total 0.3 0.0 - 1.0 mg/dL [facility] Aspartate Amino Transferase 22 5 - 37 U/L [facility] Alanine Aminotransferase 15 0 - 40 U/L [facility] Total Protein 6.5 6.5 - 8.0 g/dL [facility] Albumin Level 3.9 3.5 - 5.0 g/dL [facility] Alkaline Phosphatase 87 39 - 117 U/L [facility] Blood Venous blood specimen / Unknown 10/07/2024 9:51 AM EDT 10/07/2024 11:03 AM EDT us Isacc Name LAB BLOOD ORDERABLES Final Resul t [facility] [address] [place] [address] [phone] * (ABNORMAL) Lipid Panel, Standard (07/08/2024 8:22 AM EDT) Triglycerides 241(H) <150 mg/dL [facility] Comment:Slight Lipemia.Yoel able Triglyceride: less than 150 mg/dLBorderline High Triglyceride 150-199 mg/dLHigh Triglyceride: 200-499 mg/dLVery High Triglyceride: greater than or equal to 5OO mg/dL Cholesterol 213(H) <200 mg/dL [facility] Comment:Desirable Cholestero l: less than 200 mg/dLBorderline High Cholesterol: 200-239 mg/dLHigh Cholesterol: greater than 239 mg/dL LDL Cholesterol Calculated 123(H) <100 mg/dL [facility] Comment:Desirable LDL: less than 100 mg/dLNear Optimal/Above Optimal LDL: 110- 129 mg/dLBorderline High LDL: 130-159 mg/dLHigh LDL: 160-189 mg/dLVery High LDL: greater than or equal to 190 mg/dL HDL Cholesterol 42 >40 mg/dL [facility] Comment:Desirable HDL: great er than 40 mg/dL Note: This HDL assay may give artificially low results in patients with liver disease. Blood Venous blood specimen / Unknown 07/08/2024 8:22 AM EDT 07/08/2024 11:25 AM EDT Isacc Wood MD LAB BLOOD ORDERABLES Final Resul t [facility] [address] [place] [phone] * Colonoscopy (03/13/2024 2:44 PM EST) Anatomical Region Laterality Modality Endoscopy [facility] Provider ENDOSCOPY PROCEDURE ORDER LEEANNE Final Result * (ABNORMAL) Albumin, Random Urine W/Creatinine (12/04/2023 9:22 AM EDT) Creatinine, Urine 40.59 mg/dL [facility] Microalbumin Urine 13.0 mg/L [facility] Microalbum Creatinine Ratio Ur 32.0(H) <30 ug/mg cr [facility] Comment:Albumin/Creatinine R atio Reference Ranges: Normal: < 30 ug/mg creatinine Microalbuminuria: 30 - 300 ug/mg creatinineClinical Albuminuria: > 300 ug/mg creatinine Urine (Urine, Random) 12/04/2023 9:22 AM EDT 12/04/2023 11:02 AM EDT us Isacc Name LAB URINE ORDERABLES Final Resul t [facility] [address] [place] [address] [phone] from Last 3 Months or Most Recently Relevant to Health Maintenance Insurance MEDICARE Care Teams Crop Scout Relationship Specialty Start Date End Date Name, MD Isacc [address] [place] [id number] PCP - General Family Medicine 11/03/18
[2025-01-05 08:46] LABS: Anion Gap 12 (12-20); Blood Urea Nitrogen 22 mg/dL (9-16); Calcium 9.2 mg/dL (8.4-10.2); Carbon Dioxide 27 mmol/L (22-29); Chloride 105 mmol/L (96-108); Cholesterol 116 mg/dL (<200); Estimated Glomerular Filt Rate > 60; HDL Cholesterol 38 mg/dL (>40); Potassium 4.6 mmol/L (3.3-5.1); Sodium 139 mmol/L (135-145); Triglycerides 78 mg/dL (<150)
[2025-01-05 09:23] LABS: Microalbum/Creatinine Ratio Ur 41.7 ug/mg cr (<30)
== END 2025-01-05 07:47 | disposition home or self-care (01) ==
LOC: HO.LAB 07:46
PROVIDERS: PCP Internal Medicine Geriatric Medicine; Visit Provider Nurse Practitioner Family
DX: E11.59 Type 2 diabetes mellitus with other circulatory complications (principal); I77.9 Disorder of arteries and arterioles, unspecified; R60.0 Localized edema; E87.5 Hyperkalemia; R39.15 Urgency of urination
CPT/HCPCS: 36415; 80048; 80061; 82043; 82570

== ENCOUNTER 2025-01-06 10:31 | Outpatient (REF) | payer MEDICARE, SELFPAY ==
--- OUTSIDE RECORDS SUMMARY | 2025-01-05 15:45 | XMS_ITS | Encounter Summary ---
Author Organization [employer] Address [address] [facility] 7t [place] [address] Care Team Providers Care Merchandise Flow Associate Name Role Phone Name, Isacc LOJA Primary Care Provider [phone] Reason for Visit * Reason Comments Follow-up Encounter Details Date Type Department Care Team ([facility] st Contact Info) Description 01/05/2025 3:45 PM EDT Office Visit [facility] MED[facility]INE [address] [place] [address] Name, MD Isacc [address] [place], [place] [phone] Hypertension, unspecified type (Primary Dx); Anxiety; Neck [...] the ER once for this complaint. At [facility] ER his workup was unremarkable. Since he was seen at [facility] ER on December 08 his dose of metoprolol was increased and the patient blood pressure has been better at home. He continues to have frequent anxiety and is interested in continuing sertraline at higher dose. The patient also complains of neck pain. He has neck discomfort when he moves the head from [id number]. There is no swelling or history of [...] edema. 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 It could be a side effect of Brilinta Encounter for immunization - FLU VACCINE TRIVALENT [id number] (Fluarix) 19 yrs + Other orders - omeprazole (PriLOSEC) [address] capsule; Take 1 capsule (40 mg) by mouth before breakfast. Do not crush or chew. Future Appointments Date Time Provider Department Center 02/16/2025 2:30 PM Isacc Wood MD [facility] 02/26/2025 9:00 AM Grant Ashley MD [facility] documented in this encounter Plan of Treatment Upcoming Encounters Date Type Department Care Team (Late st Contact Info) Description 02/16/2025 2:30 PM EST Office Visit [address] [address] Isacc Wood MD [address] [place] [address] 02/26/2025 9:00 AM EST Office Visit [address] [address] Grant Ashley MD [address] [place] [address] documented as of this encounter Procedures Procedure Name Priority Date/Time Associated Diagnosis Comments XR CERVICAL SPINE 3V Routine 01/06/2025 10:51 AM EDT Neck pain without injury documented in this encounter Results * XR CERVICAL SPINE 3V (01/06/2025 10:51 AM EDT) Anatomical Region Laterality Modality Abdomen Radiographic Destini ging 01/06/2025 10:5 1 AM EDT Narrative 01/06/2025 10:59 AM EDT [address] [address] XRay Report Signed Patient: Vernon Lewis MR#: [id number] : 1960 Acct:[id number] Age/Sex: 64 / M ADM Date: 01/06/25 Loc: HO.HHCX Attending Dr: Isacc Wood MD Ordering Physician: Isacc Wood MD Date of Service: 01/06/25 Procedure(s): XR cervical spine 3V Accession Number(s): [id number] cc: Isacc Wood MD Reason for Exam: [...] 01/06/25 1057 DD/ 1051 TD/TT: 01/06/25 105 Patient Account Analyst: Procedure Note Donotuseinterpreter, Image - 01/06/[address] [address] XRay Report Signed Patient: Vernon Lewis LMR#: [id number] : 1Acct:[id number] Age/Sex: 64 / MADM Date: 01/06/25 Loc: HO.HHCX Attending Dr: Isacc Wood MD Ordering Physician: Isacc Wood MD Date of Service: 01/06/25 Procedure(s): XR cervical spine 3V Accession Number(s): [id number] cc: Isacc Wood MD Reason for Exam: [...] 01/06/25 1057 DD/ 1051 TD/TT: 01/06/25 1051 Patient Account Analyst: Isacc Wood MD IMG XR PROCEDURES Final Result documented in this encounter Visit Diagnoses Diagnosis Hypertension, unspecified type- Primary Anxiety Anxiety state, unspecified Neck pain without injury Heartburn Dyspnea, unspecified type Encounter for immunization documented in this encounter Additional Health Concerns Assessment Noted Time PHQ-9 Depression Total Score: 0 09/19/19 9:22 AM EDT documented as of this encounter Care Teams Merchandise Flow Associate Relationship Specialty Start Date End Date Isacc Wood MD [address] [place] [address] PCP - General Family Medicine 11/03/18 documented as of this encounter
--- NOTE | ~2025-01-06 | XR_ITS ---
EXAMINATION: XR CERVICAL SPINE 2-3 VIEWS HISTORY: Chronic neck pain, decreased ROM of the shoulder COMPARISON: There are no prior studies available for comparison. FINDINGS: AP, lateral, and open-mouth odontoid views of the cervical spine are submitted. Osseous mineralization is normal. Seven cervical vertebral bodies are identified maintaining normal height and alignment without evidence of fracture or subluxation. There is moderate degenerative disc disease at the C4-5 level, with disc space narrowing and osteophyte formation. The odontoid and lateral masses of C1 are intact. There is no prevertebral soft tissue swelling. Calcifications in the neck bilaterally are likely related to the internal carotid arteries. XR/XR cervical spine 3V IMPRESSION: Moderate degenerative disc disease at C4-5. Electronically signed by: Dennys Frances MD 01/06/2025 10:57 AM EDT
--- OUTSIDE RECORDS SUMMARY | 2025-01-06 12:07 | XMS_ITS | Encounter Summary ---
Author Organization [employer] Address [address] [facility] [address] 7t [place] [address] Care Team Providers Care Director Of Catering Sales Name Role Phone Name, Isacc LOJA Primary Care Provider [phone] Encounter Details Date Type Department Care Team (Late st Contact Info) Description 11/12/2024 Orders Only [facility] MEDICINE [address] [place] [address] Elizabeth Munson, RN Social History Tobacco Use [...] Description 02/16/2025 2:30 PM EST Office Visit [facility] [address] [place] [address] Name, MD Isacc [address] [place] [address] 02/26/2025 9:00 AM EST Office Visit [facility] [address] [place] [address] Grant Ashley MD [address] [place] [address] documented as of this encounter Visit Diagnoses Not on filedocumented in this encounter Additional Health Concerns Assessment Noted Time PHQ-9 Depression Total Score: 0 09/19/19 25 9:22 AM EDT documented as of this encounter Care Teams Director Of Catering Sales Relationship Specialty Start Date End Date NameIsacc MD [address] [place] [address] PCP - General Family Medicine 11/03/18 documented as of this encounter
--- OUTSIDE RECORDS SUMMARY | 2025-01-06 12:07 | XMS_ITS | Encounter Summary ---
Author Organization [employer] Address [address] [facility] 7t [place] [address] Care Team Providers Care Pricer Bagger Name Role Phone Name, Isacc LOJA Primary Care Provider [phone] Encounter Details Date Type Department Care Team (Late st Contact Info) Description 03/13/2024 Orders Only [facility] [address] [place] [address] Provider, MD Zoey Social History Tobacco Use [...] Description 02/16/2025 2:30 PM EST Office Visit [facility] MEDICINE [address] [place] [address] NameIsacc MD [address] [place] [address] 02/26/2025 9:00 AM EST Office Visit [facility] MED[facility]INE [address] [place] [address] Grant Ashley MD [address] [place] [address] documented as of this encounter Procedures Procedure [...] documented as of this encounter Care Teams Pricer Bagger Relationship Specialty Start Date End Date NameIsacc MD [address] [place] [address] PCP - General Family Medicine 11/03/18 documented as of this encounter
--- OUTSIDE RECORDS SUMMARY | 2025-01-06 12:07 | XMS_ITS | Encounter Summary ---
Author Organization [employer] Address [address] [facility] 7t [place] [address] Care Team Providers Care Substation Operator Transforming Name Role Phone Name, Isacc LOJA Primary Care Provider [phone] Reason for Visit * Reason Comments Med Refill Encounter Details Date Type Department Care Team ([facility] st Contact Info) Description 02/05/2023 Refill [facility] [address] [place], [place] [phone] Name, MD Isacc [address] [place] [address] Social History Tobacco Use Types Packs/Day Years [...] Description 02/16/2025 2:30 PM EST Office Visit [address] [address] Name, MD Isacc [address] [place] [address] 02/26/2025 9:00 AM EST Office Visit [address] [address] Grant Ashley MD [address] [place] [address] documented as of this encounter Visit Diagnoses Not on filedocumented in this encounter Additional Health Concerns Assessment Noted Time PHQ-9 Depression Total Score: 6 03/21/20 22 10:54 AM EST documented as of this encounter Care Teams Substation Operator Transforming Relationship Specialty Start Date End Date Name, MD Isacc [address] [place] [address] PCP - General Family Medicine 11/03/18 documented as of this encounter
--- OUTSIDE RECORDS SUMMARY | 2025-01-06 12:07 | XMS_ITS | Encounter Summary ---
Author Organization [employer] Address [address] [facility] [address] 7t [place] [address] Care Team Providers Care Point Of Care Specialist Name Role Phone Name, Isacc LOJA Primary Care Provider [phone] Encounter Details Date Type Department Care Team (Late st Contact Info) Description 11/12/2024 Orders Only [facility] MEDICINE [address] [place] [address] Elizabeth Munson, RN Social History Tobacco Use [...] Description 02/16/2025 2:30 PM EST Office Visit [facility] [address] [place] [address] Name, MD Isacc [address] [place] [address] 02/26/2025 9:00 AM EST Office Visit [facility] [address] [place] [address] Grant Ashley MD [address] [place] [address] documented as of this encounter Visit Diagnoses Not on filedocumented in this encounter Additional Health Concerns Assessment Noted Time PHQ-9 Depression Total Score: 0 09/19/19 25 9:22 AM EDT documented as of this encounter Care Teams Point Of Care Specialist Relationship Specialty Start Date End Date NameIsacc MD [address] [place] [address] PCP - General Family Medicine 11/03/18 documented as of this encounter
--- OUTSIDE RECORDS SUMMARY | 2025-01-06 12:07 | XMS_ITS | Encounter Summary ---
Author Organization [employer] Address [address] [facility] 7t [place] [address] Care Team Providers Care End Stapler Name Role Phone Name, Isacc LOJA Primary Care Provider [phone] Reason for Visit * Reason Comments Med Refill Encounter Details Date Type Department Care Team ([facility] st Contact Info) Description 05/22/2023 Refill [facility] MEDICINE [address] [place], [place] [phone] Name, MD Isacc [address] [place] [address] Social History Tobacco Use Types Packs/Day Years [...] Description 02/16/2025 2:30 PM EST Office Visit [address] [address] Name, MD Isacc [address] [place] [address] 02/26/2025 9:00 AM EST Office Visit [address] [address] Grant Ashley MD [address] [place] [address] documented as of this encounter Visit Diagnoses Not on filedocumented in this encounter Additional Health Concerns Assessment Noted Time PHQ-9 Depression Total Score: 6 03/21/20 22 10:54 AM EST documented as of this encounter Care Teams End Stapler Relationship Specialty Start Date End Date Name, MD Isacc [address] [place] [address] PCP - General Family Medicine 11/03/18 documented as of this encounter
--- OUTSIDE RECORDS SUMMARY | 2025-01-06 12:07 | XMS_ITS | Encounter Summary ---
Author Organization [employer] Address [address] [facility] 7t [place] [address] Care Team Providers Care Rn Family Name Role Phone Name, Isacc LOJA Primary Care Provider [phone] Reason for Visit * Reason Onset Date Comments Pain med, suboxone, CRS Dept 10/28/2023 Encounter Details Date Type Department Care Team (Late st Contact Info) Description 10/28/2023 Telephone [facility] MEDICINE [address] [place] [address] Name, MD Isacc [address] [place], [place] [phone] Pain med, suboxone, CRS Dept Social History [...] like patient had been receiving. TC via P/I#[id number], reviewed with patient that CRS department has [...] 5-325 MG tablet To be sent to: [facility]/pharmacy #[id number] - [place], [place] - [facility] States leaves on vacation tomorrow to [place] 10/29/23. documented in this encounter Plan of Treatment Upcoming Encounters Date Type Department Care Team (Late st Contact Info) Description 02/16/2025 2:30 PM EST Office Visit [facility] MED[facility]INE [address] [place] [address] Name, MD Isacc [address] [place] [address] 02/26/2025 9:00 AM EST Office Visit [address] [address] Grant Ashley MD [address] [place] [address] documented as of this encounter Visit Diagnoses Not on filedocumented in this encounter Additional Health Concerns Assessment Noted Time PHQ-9 Depression Total Score: 0 08/08/19 24 9:27 AM EDT documented as of this encounter Care Teams Rn Family Relationship Specialty Start Date End Date Name, MD Isacc [address] [place] [address] PCP - General Family Medicine 11/03/18 documented as of this encounter
--- OUTSIDE RECORDS SUMMARY | 2025-01-06 12:07 | XMS_ITS | Encounter Summary ---
Author Organization [employer] Address [address] [facility] 7t [place] [address] Care Team Providers Care Executive Assistant Name Role Phone Name, Isacc LOJA Primary Care Provider [phone] Reason for Visit * Reason Comments Med Refill Encounter Details Date Type Department Care Team ([facility] st Contact Info) Description 05/22/2024 Refill [facility] MED[facility] 230 [place], [place] [phone] Grant Ashley MD 230 [place], [place] [phone] Chronic low back pain, unspecified back pain [...] Description 02/16/2025 2:30 PM EST Office Visit [facility] [address] [place] [address] NameIsacc MD [address] [place] [address] 02/26/2025 9:00 AM EST Office Visit [address] [address] Grant Ashley MD [address] [place] [address] documented as of this encounter Visit Diagnoses Diagnosis Chronic low back pain, unspecified back pain laterality, unspecified whether sciatica present documented in this encounter Additional Health Concerns Assessment Noted Time PHQ-9 Depression Total Score: 0 08/08/19 24 9:27 AM EDT documented as of this encounter Care Teams Executive Assistant Relationship Specialty Start Date End Date Isacc Wood MD [address] [place] [address] PCP - General Family Medicine 11/03/18 documented as of this encounter
--- OUTSIDE RECORDS SUMMARY | 2025-01-06 12:07 | XMS_ITS | Encounter Summary ---
Author Organization [employer] Address 75 [facility] 7t [place] [address] Care Team Providers Care Assisted Living Director Name Role Phone Name, Isacc LOJA Primary Care Provider [phone] Reason for Visit * Reason Comments Med Refill Encounter Details Date Type Department Care Team ([facility] st Contact Info) Description 12/04/2024 Refill [facility] MEDICINE 230 [place], [place] [phone] Grant Ashley MD 230 [place], [place] [phone] Chronic low back pain, unspecified back pain [...] Description 02/16/2025 2:30 PM EST Office Visit [facility] MEDICINE [address] [place] [address] NameIsacc MD [address] [place] [address] 02/26/2025 9:00 AM EST Office Visit [facility] MEDICINE [address] [place] [address] Grant Ashley MD [address] [place] [address] documented as of this encounter Visit Diagnoses Diagnosis Chronic low back pain, unspecified back pain laterality, unspecified whether sciatica present documented in this encounter Additional Health Concerns Assessment Noted Time PHQ-9 Depression Total Score: 0 09/19/19 25 9:22 AM EDT documented as of this encounter Care Teams Assisted Living Director Relationship Specialty Start Date End Date Isacc Wood MD [address] [place] [address] PCP - General Family Medicine 11/03/18 documented as of this encounter
--- OUTSIDE RECORDS SUMMARY | 2025-01-06 12:07 | XMS_ITS | Encounter Summary ---
Author Organization [employer] Address [address] [facility] [address] 7t [place] [address] Care Team Providers Care Wet Roller Name Role Phone Name, Isacc LOJA Primary Care Provider [phone] Encounter Details Date Type Department Care Team (Latest Contact Info) Description 01/05/2025 Travel Social History Tobacco Use Types Packs/Day [...] Description 02/16/2025 2:30 PM EST Office Visit [facility] MEDICINE [address] [place] [address] Name, MD Isacc [address] [place] [address] 02/26/2025 9:00 AM EST Office Visit [address] [address] Grant Ashley MD [address] [place] [address] documented as of this encounter Visit Diagnoses Not on filedocumented in this encounter Additional Health Concerns Assessment Noted Time PHQ-9 Depression Total Score: 0 09/19/19 25 9:22 AM EDT documented as of this encounter Care Teams Wet Roller Relationship Specialty Start Date End Date Isacc Wood MD [address] [place] [address] PCP - General Family Medicine 11/03/18 documented as of this encounter
--- OUTSIDE RECORDS SUMMARY | 2025-01-06 12:07 | XMS_ITS | Encounter Summary ---
Author Organization [employer] Address [address] 7t [place] [address] Care Team Providers Care Radio Electrician Name Role Phone Name, Isacc LOJA Primary Care Provider [phone] Encounter Details Date Type Department Care Team ([facility] st Contact Info) Description 11/03/2024 Telephone [facility] MEDICINE 230 [place], [place] [phone] Name, MD Isacc 230 [place], [place] [phone] Social History Tobacco Use Types Packs/Day Years [...] Description 02/16/2025 2:30 PM EST Office Visit [facility] MEDICINE [address] [place] [address] Isacc Wood MD [address] [place] [address] 02/26/2025 9:00 AM EST Office Visit [address] [address] Grant Ashley MD [address] [place] [address] documented as of this encounter Visit Diagnoses Not on filedocumented in this encounter Additional Health Concerns Assessment Noted Time PHQ-9 Depression Total Score: 0 09/19/19 25 9:22 AM EDT documented as of this encounter Care Teams Radio Electrician Relationship Specialty Start Date End Date Isacc Wood MD [address] [place] [address] PCP - General Family Medicine 11/03/18 documented as of this encounter
--- OUTSIDE RECORDS SUMMARY | 2025-01-06 12:07 | XMS_ITS | Encounter Summary ---
Author Organization [employer] Address [address] [place] [address] 7 [place] [address] Care Team Providers Care Hydrodynamics Professor Name Role Phone Name, Isacc LOJA Primary Care Provider [phone] Reason for Visit * Reason Comments Med Refill Encounter Details Date Type Department Care Team (Late Contact Info) Description 01/07/2023 Refill [facility] MEDICINE [address] [place] [address] [phone] NameIsacc MD [address] [place] [address] [phone] Social History Tobacco Use Types Packs/Day Years [...] Department Care Team (Late Contact Info) Description 02/16/2025 2:30 PM EST Office Visit [facility] MEDICINE [address] [place] [address] [phone] NameIsacc MD [address] [place] [address] [phone] 02/26/2025 9:00 AM EST Office Visit [facility] MEDICINE 230 [place] [address] Grant Ashley MD 230 [place] [address] documented as of this encounter Visit Diagnoses Not on filedocumented in this encounter Additional Health Concerns Assessment Noted Time PHQ-9 Depression Total Score: 6 03/21/20 22 10:54 AM EST documented as of this encounter Care Teams Hydrodynamics Professor Relationship Specialty Start Date End Date Name, MD Isacc 230 [place] [address] PCP - General Family Medicine 11/03/18 documented as of this encounter
--- OUTSIDE RECORDS SUMMARY | 2025-01-06 12:07 | XMS_ITS | Encounter Summary ---
Author Organization [employer] Address 75 [facility] 7t [place] [address] Care Team Providers Care Hemodialysis Rn Name Role Phone Name, Isacc LOJA Primary Care Provider [phone] Reason for Visit * Reason Onset Date Comments Nurse Triage 08/01/2023 Encounter Details Date Type Department Care Team ([facility] st Contact Info) Description 08/01/2023 Telephone [facility] MEDICINE 230 [place] [address] Name, MD Isacc 230 [place] [address] Nurse Triage Social History Tobacco Use Types [...] t he electric, gas, oil or water [employer] threatened to shut off services in your [...] 2:19 PM EDT No recent notes in [facility] or [facility] for pt. T/C to pt for status check via [employer] #[id number]. Pt states he will not go to [...] advised of disposition, agrees to return to [facility] now. Will contact EMS for transport. [...] Reason: Can't walk (unless normally can't walk) Yoruba Speaker (accepted registered dietician) documented in this encounter Plan of Treatment Upcoming Encounters Date Type Department Care Team (Late st Contact Info) Description 02/16/2025 2:30 PM EST Office Visit [facility] MEDICINE [address] [place] [address] Name, MD Isacc [address] [place] [address] 02/26/2025 9:00 AM EST Office Visit [address] [address] Grant Ashley MD [address] [place] [address] 85[address] documented as of this encounter Visit Diagnoses Not on filedocumented in this encounter Additional Health Concerns Assessment Noted Time PHQ-9 Depression Total Score: 6 03/21/20 22 10:54 AM EST documented as of this encounter Care Teams Hemodialysis Rn Relationship Specialty Start Date End Date NameIsacc MD [address] [place] [address] PCP - General Family Medicine 11/03/18 documented as of this encounter
--- OUTSIDE RECORDS SUMMARY | 2025-01-06 12:07 | XMS_ITS | Encounter Summary ---
Author Organization [employer] Address [address] [facility] 7t [place] [address] Care Team Providers Care Technical Service Engineer Name Role Phone Name, Isacc LOJA Primary Care Provider [phone] Reason for Visit * Reason Comments Med Refill Encounter Details Date Type Department Care Team ([facility] st Contact Info) Description 02/04/2023 Refill [facility] MEDICINE 230 [place], [place] [phone] Name, MD sIacc 230 [place] [address] Chronic low back pain, unspecified back pain [...] Description 02/16/2025 2:30 PM EST Office Visit [facility] MEDICINE [address] [place] [address] Isacc Wood MD [address] [place] [address] 02/26/2025 9:00 AM EST Office Visit [address] [address] Grant Ashley MD [address] [place] [address] 96[address] documented as of this encounter Visit Diagnoses Diagnosis Chronic low back pain, unspecified back pain laterality, unspecified whether sciatica present documented in this encounter Additional Health Concerns Assessment Noted Time PHQ-9 Depression Total Score: 6 03/21/20 22 10:54 AM EST documented as of this encounter Care Teams Technical Service Engineer Relationship Specialty Start Date End Date Isacc Wood MD [address] [place] [address] PCP - General Family Medicine 11/03/18 documented as of this encounter
--- OUTSIDE RECORDS SUMMARY | 2025-01-06 12:07 | XMS_ITS | Encounter Summary ---
Author Organization [employer] Address 75 [facility] 7t [place] [address] Care Team Providers Care Cow Puncher Name Role Phone Name, Isacc LOJA Primary Care Provider [phone] Reason for Visit * Reason Comments Med Refill Encounter Details Date Type Department Care Team ([facility] st Contact Info) Description 01/02/2025 Refill [facility] MEDICINE 230 [place], [place] [phone] Name, MD Isacc 230 [place] [address] Social History Tobacco Use Types Packs/Day Years [...] Description 02/16/2025 2:30 PM EST Office Visit [address] [address] Name, MD Isacc [address] [place] [address] 02/26/2025 9:00 AM EST Office Visit [address] [address] Grant Ashley MD [address] [place] [address] documented as of this encounter Visit Diagnoses Not on filedocumented in this encounter Additional Health Concerns Assessment Noted Time PHQ-9 Depression Total Score: 0 09/19/19 25 9:22 AM EDT documented as of this encounter Care Teams Cow Puncher Relationship Specialty Start Date End Date NameIsacc MD [address] [place] [address] PCP - General Family Medicine 11/03/18 documented as of this encounter
--- OUTSIDE RECORDS SUMMARY | 2025-01-06 12:07 | XMS_ITS | Encounter Summary ---
Author Organization [employer] Address [address] [place] [address] 7t [place] [address] Care Team Providers Care Motorcycle Technician Name Role Phone Name, Isacc LOJA Primary Care Provider [phone] Reason for Visit * Reason Onset Date Comments Med Refill 11/05/2022 Encounter Details Date Type Department Care Team (Late st Contact Info) Description 11/05/2022 Telephone [facility] MEDICINE 230 [place], [place] [phone] Name, MD Isacc 230 [place] [address] Med Refill Social History Tobacco Use Types [...] 10 MG tablet to be sent to [facility]/pharmacy #[id number] - [place], [place] - [address] documented in this encounter Plan of Treatment Upcoming Encounters Date Type Department Care Team (Late st Contact Info) Description 02/16/2025 2:30 PM EST Office Visit [facility] MEDICINE [address] [place] [address] Isacc Wood MD [address] [place] [address] 02/26/2025 9:00 AM EST Office Visit [facility]INE [address] [place] [address] Grant Ashley MD [address] [place] [address] documented as of this encounter Visit Diagnoses Not on filedocumented in this encounter Additional Health Concerns Assessment Noted Time PHQ-9 Depression Total Score: 6 03/21/20 22 10:54 AM EST documented as of this encounter Care Teams Motorcycle Technician Relationship Specialty Start Date End Date Isacc Wood MD [address] [place] [address] PCP - General Family Medicine 11/03/18 documented as of this encounter
--- OUTSIDE RECORDS SUMMARY | 2025-01-06 12:07 | XMS_ITS | Encounter Summary ---
Author Organization [employer] Address 75 [facility] 7t [place] [address] Care Team Providers Care Consumer Insights Specialist Name Role Phone Name, Isacc LOJA Primary Care Provider [phone] Reason for Visit * Reason Comments Med Refill Encounter Details Date Type Department Care Team ([facility] st Contact Info) Description 03/09/2023 Refill [facility] MEDICINE 230 [place], [place] [phone] Name, MD Isacc 230 [place] [address] Seasonal allergic rhinitis, unspecified trigger Social History [...] 02/16/2025 2:30 PM EST Office Visit [address] [address] NameIsacc MD [address] [place] [address] 02/26/2025 9:00 AM EST Office Visit [facility] MEDICINE [address] [place] [address] Grant Ashley MD [address] [place] [address] documented as of this encounter Visit Diagnoses Diagnosis Seasonal allergic rhinitis, unspecified trigger documented in this encounter Additional Health Concerns Assessment Noted Time PHQ-9 Depression Total Score: 6 03/21/20 22 10:54 AM EST documented as of this encounter Care Teams Consumer Insights Specialist Relationship Specialty Start Date End Date NameIsacc MD [address] [place] [address] PCP - General Family Medicine 11/03/18 documented as of this encounter
--- OUTSIDE RECORDS SUMMARY | 2025-01-06 12:07 | XMS_ITS | Encounter Summary ---
Author Organization [employer] Address 75 [facility] 7t [place] [address] Care Team Providers Care Experimental Box Tester Name Role Phone Name, Isacc LOJA Primary Care Provider [phone] Reason for Visit * Reason Onset Date Comments requesting call back 11/03/2024 Encounter Details Date Type Department Care Team ([facility] st Contact Info) Description 11/03/2024 Telephone [facility] MEDICINE 230 [place] [address] Name, MD Isacc 230 [place] [address] requesting call back Social History Tobacco Use [...] called to informed he is admiited at [facility] . He will call back when he's recovery from His Heart Surgery on 11/04/2024. Sending to Dr. Dion EDGAR. * Telephone Encounter - Isacc Silva - 11/03/2024 1:13 PM EDT Tc from pt requesting a call back with the phone number of where he is going to get his surgery. Nofurther details provided. Contact pt at [phone] documented in this encounter Plan of Treatment Upcoming Encounters Date Type Department Care Team (Late st Contact Info) Description 02/16/2025 2:30 PM EST Office Visit [facility] MEDICINE [address] [place] [phone] Name, MD Isacc 230 [place] [address] 02/26/2025 9:00 AM EST Office Visit [facility] MEDICINE 230 [place], [place] [phone] Grant Ashley MD 230 [place] [address] documented as of this encounter Visit Diagnoses Not on filedocumented in this encounter Additional Health Concerns Assessment Noted Time PHQ-9 Depression Total Score: 0 09/19/19 25 9:22 AM EDT documented as of this encounter Care Teams Experimental Box Tester Relationship Specialty Start Date End Date Name, MD Isacc 230 [place], [place] [phone] PCP - General Family Medicine 11/03/18 documented as of this encounter
--- OUTSIDE RECORDS SUMMARY | 2025-01-06 12:07 | XMS_ITS | Encounter Summary ---
Author Organization [employer] Address [address] [facility] 7t [place] [address] Care Team Providers Care Mate Relief Name Role Phone Name, Isacc LOJA Primary Care Provider [phone] Reason for Visit * Reason Onset Date Comments Med Refill 10/05/2022 Encounter Details Date Type Department Care Team (Late st Contact Info) Description 10/05/2022 Telephone [facility] MEDICINE 230 [place], [place] [phone] Name, MD Isacc 230 [place] [address] Med Refill Social History Tobacco Use Types [...] Description 02/16/2025 2:30 PM EST Office Visit [facility] MEDICINE [address] [place] [address] Name, MD Isacc [address] [place] [address] 02/26/2025 9:00 AM EST Office Visit [facility] MEDICINE [address] [place] [address] Grant Ashley MD [address] [place] [address] documented as of this encounter Visit Diagnoses Not on filedocumented in this encounter Additional Health Concerns Assessment Noted Time PHQ-9 Depression Total Score: 6 03/21/20 22 10:54 AM EST documented as of this encounter Care Teams Mate Relief Relationship Specialty Start Date End Date Name, MD Isacc [address] [place] [address] PCP - General Family Medicine 11/03/18 documented as of this encounter
--- OUTSIDE RECORDS SUMMARY | 2025-01-06 12:07 | XMS_ITS | Encounter Summary ---
Author Organization [employer] Address [address] [facility] 7t [place] [address] Care Team Providers Care General Ledger Accountant Name Role Phone Name, Isacc LOJA Primary Care Provider [phone] Reason for Visit * Reason Comments Med Refill Encounter Details Date Type Department Care Team ([facility] st Contact Info) Description 07/17/2024 Refill [facility] MEDICINE 230 [place], [place] [phone] Grant Ashley MD 230 [place], [place] [phone] Chronic low back pain, unspecified back pain [...] Description 02/16/2025 2:30 PM EST Office Visit [facility] MEDICINE [address] [place] [address] NameIsacc MD [address] [place] [address] 02/26/2025 9:00 AM EST Office Visit [address] [address] Grant Ashley MD [address] [place] [address] documented as of this encounter Visit Diagnoses Diagnosis Chronic low back pain, unspecified back pain laterality, unspecified whether sciatica present documented in this encounter Additional Health Concerns Assessment Noted Time PHQ-9 Depression Total Score: 0 08/08/19 24 9:27 AM EDT documented as of this encounter Care Teams General Ledger Accountant Relationship Specialty Start Date End Date Isacc Wood MD [address] [place] [address] PCP - General Family Medicine 11/03/18 documented as of this encounter
--- OUTSIDE RECORDS SUMMARY | 2025-01-06 12:07 | XMS_ITS | Encounter Summary ---
Author Organization [employer] Address [address] [place] [address] 7t [place] [address] Care Team Providers Care Waredresser Name Role Phone Name, Isacc LOJA Primary Care Provider [phone] Encounter Details Date Type Department Care Team (Late Contact Info) Description 09/17/[address] [address] NameIsacc MD [address] [place] [address] Social History Tobacco Use Types Packs/Day Years [...] Description 02/16/2025 2:30 PM EST Office Visit [address] [phone] Isacc Wood MD [address] [place] [address] 02/26/2025 9:00 AM EST Office Visit [address] [address] Grant Ashley MD 230 [place] [address] documented as of this encounter Procedures Procedure Name Priority Date/Time Associated Diagnosis Comments COLONOSCOPY Routine 02/06/2018 12:51 PM EDT documented in this encounter Results * Colonoscopy (02/06/2018 12:51 PM EDT) Colonoscopy Normal Normal Narrative Rosalina Castro - 02/06/2018 12:51 PM EDT Recommended 5 years ( [facility]) us Historical Provider HEALTH MAINTENANCE Final Result documented in this encounter Visit Diagnoses Not on filedocumented in this encounter Additional Health Concerns Assessment Noted Time PHQ-9 Depression Total Score: 6 03/21/20 22 10:54 AM EST documented as of this encounter Care Teams Waredresser Relationship Specialty Start Date End Date Name, MD Isacc 230 [place] [address] PCP - General Family Medicine 11/03/18 documented as of this encounter
--- OUTSIDE RECORDS SUMMARY | 2025-01-06 12:07 | XMS_ITS | Encounter Summary ---
Author Organization [employer] Address 75 [facility] 7t [place] [address] Care Team Providers Care Propulsion Motor And Generator Repairer Name Role Phone Name, Isacc LOJA Primary Care Provider [phone] Reason for Visit * Reason Onset Date Comments FYI 11/18/2024 Encounter Details Date Type Department Care Team ([facility] st Contact Info) Description 11/18/2024 Telephone [facility] MEDICINE 230 [place] [address] Name, MD Isacc 230 [place] [address] FYI Social History Tobacco Use Types Packs/Day [...] any questions you can contact pt at [phone]. (Amharic Speaker) documented in this encounter Plan of Treatment Upcoming Encounters Date Type Department Care Team (Late st Contact Info) Description 02/16/2025 2:30 PM EST Office Visit [facility] MEDICINE [address] [place] [address] Name, MD Isacc [address] [place] [address] 02/26/2025 9:00 AM EST Office Visit [facility] MEDICINE [address] [place] [address] Grant Ashley MD [address] [place] [address] documented as of this encounter Visit Diagnoses Not on filedocumented in this encounter Additional Health Concerns Assessment Noted Time PHQ-9 Depression Total Score: 0 09/19/19 25 9:22 AM EDT documented as of this encounter Care Teams Propulsion Motor And Generator Repairer Relationship Specialty Start Date End Date Name, MD Isacc 230 [place] [address] PCP - General Family Medicine 11/03/18 documented as of this encounter
--- OUTSIDE RECORDS SUMMARY | 2025-01-06 12:07 | XMS_ITS | Clinical Summary ---
Author Organization [employer] Address [address] [facility] 7[address] [place] [address] Care Team Providers Care Network Control Supervisor Name Role Phone Name, Isacc LOJA Primary Care Provider [phone] Allergies Active Allergy Reactions Criticality Noted Date [...] Chambers (OptiChamber Fannie) device Optichamber fannie [facility] spacer Q4h prn Active FreeStyle lancets [...] by mouth at bedtime. 10/14/19 25 Active ticagrelor (Brilinta) 90 MG tablet Take 1 tablet by mouth 2 times daily. 11/11/19 25 Active isosorbide mononitrate ER (Imdur) 30 MG 24 hr tablet Take 1 tablet by mouth before breakfast. 11/16/19 25 Active bethanechol (Urecholine) 50 MG tablet Take 50 mg by mouth 2 times daily. 10/14/19 25 Active insulin glargine (Lantus SoloStar) 100 UNIT/ML pen Inject 10 Units under the skin at bedtime. 3 mL 11/24/19 25 2025 Active pen needle 32G x 4 mm misc Use with insulin pen as directed 100 each 11/24/19 25 Active LORazepam (Ativan) 0.5 MG [...] SPASM 60 tablet 2 12/16/19 25 Active metoprolol succinate XL (Toprol-XL) 200 MG 24 hr tablet TOME 1 TABLETA POR V A ORAL TODOS LOS D 01/04/20 25 Active sertraline (Zoloft) 100 MG tabletIndicati ons:Anxiety Take 1 tablet (100 mg) by mouth Once per day. 30 tablet 01/06/20 25 2025 Active omeprazole (PriLOSEC) [address] capsule Take 1 capsule (40 mg) by mouth before breakfast. Do not crush or chew. 30 capsule 01/06/20 25 2025 Active Buprenorphine HCl-Naloxone HCl (Suboxone) 8-2 [...] FOR BACK MUSCLE SPASM 60 tablet 2 09/15/192024 Discontinued nicotine (Nicoderm CQ) 21 MG/24HR patch Place 1 patch on the skin 1 (one) time each day at the same time. 30 patch 11/13/19 25 2024 Discontinued metoprolol succinate XL (Toprol-XL) 100 MG 24 hr tablet Take 1 tablet by mouth Once per day. 11/11/19 25 2024 Discontinued(D ose adjustment) sertraline (Zoloft) 25 MG tablet Take 1 tablet (25 mg) by mouth Once per day for 7 days, THEN 2 tablets (50 mg) Once per day. 67 tablet 2 11/24/192024 Discontinued(D ose adjustment) sertraline (Zoloft) 100 MG tabletIndicati ons:Anxiety Take 1 tablet (100 mg) by mouth Once per day. 30 tablet 01/06/202024 Discontinued(R eorder (will not trigger notification to Pharmacy)) omeprazole (PriLOSEC) [address] capsule Take 1 capsule (40 mg) by mouth before breakfast. Do not crush or chew. 30 capsule 01/06/202024 Discontinued(R eorder (will not trigger notification to Pharmacy)) Active Problems Patient Care Coordination No te Formatting of this note migh t be different from the original. C3/CM Alma Rosa Milian RN Problem Noted Date Diagnosed Date Anxiety 01/05/2025 COVID-19 virus infection 12/23/2023 Assessment & Plan (12/23/2023 2:56 PM EDT): Rx Paxlovid x 5 days, Nae interactions module checked, Advised to call if [...] Encounters Date Type Department Care Team Description 01/05/2025 3:45 PM EDT Office Visit [facility] MEDICINE [address] [place] [address] Isacc Wood MD Hypertension, unspecified type (Primary Dx); Anxiety; Neck pain without injury; Heartburn; Dyspnea, unspecified type; Encounter for immunization 01/05/2025 Travel 01/04/2025 Travel 01/02/[address] [facility] MEDICINE [address] [place] [address] Isacc Wood MD 12/21/2024 11:15 AM EDT Telemedicine [facility] MED & PEDS [address] [place] [address] Sadia Leslie RN Hypertension, unspecified type 12/21/2024 Travel 12/15/[address] [facility] MEDICINE [address] [place] [address] Anita Trujillo MD 12/11/2024 9:00 AM EDT Office Visit [facility] MEDICINE [address] [place] [address] Grant Ashley MD Chronic low back pain, unspecified back pain laterality, unspecified whether sciatica present (Primary Dx) 12/11/2024 Travel 12/09/[address] [facility] MEDICINE [address] [place] [address] Yvrose Hussein MD 12/08/[address] [facility] MEDICINE [address] [place] [address] Nurys Toribio RN Chronic low back pain, unspecified back pain laterality, unspecified whether sciatica present 12/04/2024 Travel 12/04/[address] [facility] MEDICINE [address] [place] [address] Grant Ashley MD Chronic low back pain, unspecified back pain laterality, unspecified whether sciatica present 12/01/2024 Orders Only [facility] External Provider, [facility] 11/23/2024 1:00 PM EDT Office Visit [facility] [place] [address] Isacc Wood MD Coronary arteriosclerosis in patient with history of previous myocardial infarction (Primary Dx); Hyperkalemia; Type 2 diabetes mellitus with other circulatory complication, without long-term current use of insulin ([facility]); Panic attacks 11/23/2024 Travel 11/19/[address] [facility] [place] [address] Isacc Wood MD 11/18/[address] [facility] [place] [address] Isacc Wood MD FYI 11/12/2024 Orders Only [facility] [place] [address] Elizabeth Munson, DIANA 11/12/2024 Orders Only [facility] [place] [address] Elizabeth Munson, RN 11/12/[address] [facility] [place] [address] Elizabeth Munson, RN 11/11/2024 Patient Outreach [facility] [place] [address] Isacc Wood MD Transition Of Care (Tcm) (HDF scheduled) 11/06/[address] [facility] [place] [address] Isacc Wood MD home orders 11/03/[address] [facility] [place] [address] Isacc Wood MD requesting call back 11/03/[address] [facility] [place] [address] Isacc Wood MD 10/23/2024 9:15 AM EDT Office Visit [facility] [place] [address] Isacc Wood MD Dyspnea on exertion (Primary Dx); Weight gain; Leg edema; Type 2 diabetes mellitus with other circulatory complication, without long-term current use of insulin ([facility]); Urine retention; Peripheral arterial occlusive disease ([facility]) 10/23/2024 Travel 10/22/[address] [address] Isacc Wood MD Chart Prep 10/08/2024 1:30 PM EDT Telemedicine [address] [address] Josette Kelly, DIANA Essential hypertension 10/08/2024 Telephone [facility] [address] [place] [address] Isacc Wood MD 10/08/2024 Travel from Last 3 Months Immunizations Immunization Administration Dates Next Due Influenza Injectable Quadriv alant Preservative Free IIV4 MDCK 12/02/2022,01/06/2020 Influenza injectable quadriv alent IIV4 with preservative 02/04/2019,02/13/2018 Influenza injectable quadriv alent preservative free 02/14/2022,02/08/2021,01/08/2020 Influenza, Unspecified 02/14/2022 Influenza, seasonal, injecta ble, preservative free 01/05/2025,01/29/2024 Moderna Covid-19 Vaccine 12+ 11/02/2021, 04/04/2021,06/30/2020,06/02 Pfizer [...] Frequency of Binge Drinking Not on file 0810/2023 Score 0 11/13/2023 Depression Answer Date Recorded [...] Mass Index 29.09 01/05/2025 3:43 PM EDT Plan of Treatment Upcoming Encounters Date Type Department Care Team (Late st Contact Info) Description 02/16/2025 2:30 PM EST Office Visit [facility] MEDICINE [address] [place] [address] Name, MD Isacc [address] [place] [address] 02/26/2025 9:00 AM EST Office Visit [facility] MEDICINE [address] [place] [address] Grant Ashley MD [address] [place], [place] [phone] Health Maintenance Due Date Last Done Comments CT Colonography 1960 FIT DNA/Cologuard 1960 FIT 1960 FOBT 1960 HIV Screening 1960 Sigmoidoscopy 1960 Eye Exam 1970 Hepatitis C Screening 1978 RSV Patients and Patients Aged 60 years or older (1 - Risk 60-74 years 1-dose series) 2020 Diabetes: Foot Exam 08/07/2024 08/08/2023, 08/08/2023, 08/08/2023, Additional history exists COVID-19 Vaccine ( season) 2024 02/20/2022, 02/20/2022, 11/02/2021, Additional history exists Diabetes: Hemoglobin A1C 05/26/2025 025, 06/18/2024, 11/13/2023, Additional history exists Alcohol/Substance Use Screening 09/18/2025 09/18/2024 Depression Screening 09/18/2025 09/18/2024, 09/19/19 25 SDOH Screening 09/18/2025 09/18/2024 Disability Screening 12/10/2025 12/10/2024 Diabetes: Urine Protein Screening 01/05/2026 01/05/2025, 12/04/2023, 03/14/2023, Additional history exists Lipid Panel 01/05/2026 01/05/2025, 04/0 05/2024, 12/04/2023, Additional history exists Tobacco Screening 01/05/2026 01/05/2025 Colonoscopy 03/16/2027 03/13/2024, 02/06/2018 Colorectal Cancer Screening 03/16/2027 DTaP/Tdap/Td Vaccines (2 - Td or Tdap) 06/18/2034 06/18/2024, 02/04/2019 Pneumococcal Vaccine: 50+ Years Completed 12/02/2022, 08/26/2018 Zoster Vaccines Completed 03/14/2023, 01/09/2023 Influenza Vaccine Completed 01/05/2025, , 12/02/2022, Additional history exists HIB Vaccines Aged Out No longer eligi [...] 10:51 AM EDT Neck pain without injury LIPID PANEL, STANDARD Routine 01/05/2025 7:59 AM EDT Type 2 diabetes mellitus with other circulatory complication, without long-term current use of insulin (CMS/HCC) Peripheral arterial occlusive disease (CMS/HCC) BASIC METABOLIC PANEL Routine 01/05/2025 7:59 AM EDT Type 2 diabetes mellitus with other circulatory complication, without long-term current use of insulin (CMS/HCC) ALBUMIN, RANDOM URINE W/CREATININE Routine 01/05/2025 7:56 AM EDT Leg edema Type 2 diabetes mellitus with other circulatory complication, without long-term current use of insulin (CMS/HCC) US RENAL COMPLETE Routine 12/01/2024 4:0 0 [...] urination COLONOSCOPY Routine 03/13/2024 2:44 PM EST from Last 3 Months or Most Recently Relevant to Health Maintenance Results * XR CERVICAL SPINE 3V (01/06/2025 10:51 AM EDT) Anatomical Region Laterality Modality Abdomen Radiographic Destini ging 01/06/2025 10:5 1 AM EDT Narrative 01/06/2025 10:59 AM EDT [address] [address] XRay Report Signed Patient: Cipriano NewellaVernon MR#: [id number] : 1960 Acct:[id number] Age/Sex: 64 / M ADM Date: 01/06/25 Loc: HO.CX Attending Dr: Isacc Wood MD Ordering Physician: Isacc Wood MD Date of Service: 01/06/25 Procedure(s): XR cervical spine 3V Accession Number(s): [id number] cc: Isacc Wood MD Reason for Exam: [...] Dennys Frances MD 01/06/2025 10:57 AM EDT RP Dictated By: Dennys Frances MD Signed By: <Electronically signed by Dennys Frances MD in OV> 01/06/25 1057 DD/ 1051 TD/TT: 01/06/25 1051 Circulation Man: Procedure Note Donotuseinterpreter, Image - 01/06/[address] [address] XRay Report Signed Patient: Vernon Lewis LMR#: [id number] : 1960cct:[id number] Age/Sex: 64 / MADM Date: 01/06/25 Loc: HO.HHCX Attending Dr: Isacc Wood MD Ordering Physician: Isacc Wood MD Date of Service: 01/06/25 Procedure(s): XR cervical spine 3V Accession Number(s): [id number] cc: NameIsacc MD Reason for Exam: Chronic neck pain, [...] Dennys Frances MD 01/06/2025 10:57 AM EDT RP Dictated By: Dennys Frances MD Signed By: <Electronically signed by Dennys Frances MD in OV> 01/06/25 1057 DD/ 1051 TD/TT: 01/06/25 1051 Circulation Man: Isacc Wood MD IM XR PROCEDURES Final Result * (ABNORMAL) Lipid Panel, Standard (01/05/2025 7:59 AM EDT) Triglycerides 78 <150 mg/dL [facility] Comment:Desirable Triglyceri de: less than 150 mg/dLBorderline High Triglyceride 150-199 mg/dLHigh Triglyceride: 200-499 mg/dLVery High Triglyceride: greater than or equal to 5OO mg/dL Cholesterol 116 <200 mg/dL [facility] Comment:Desirable Cholestero l: less than 200 mg/dLBorderline High Cholesterol: 200-239 mg/dLHigh Cholesterol: greater than 239 mg/dL LDL Cholesterol Calculated 63 <100 mg/dL [facility] Comment:Desirable LDL: less than 100 mg/dLNear Optimal/Above Optimal LDL: 110- 129 mg/dLBorderline High LDL: 130-159 mg/dLHigh LDL: 160-189 mg/dLVery High LDL: greater than or equal to 190 mg/dL HDL Cholesterol 38(L) >40 mg/dL [facility] Comment:Desirable HDL: great er than 40 mg/dL Note: This HDL assay may give artificially low results in patients with liver disease. Blood Venous blood specimen / Unknown 01/05/2025 7:59 AM EDT 01/05/2025 7:59 AM EDT us Isacc Wood MD LAB BLOOD ORDERABLES Final Resul t Performing Organization Address [facility] Co de Phone Number [facility] [address] [place] [phone] * (ABNORMAL) Basic Metabolic Panel (01/05/2025 7:59 AM EDT) Sodium 139 135 - 145 mmol/L [facility] Potassium 4.6 3.3 - 5.1 mmol/L [facility] Chloride 105 96 - 108 mmol/L [facility] Carbon Dioxide 27 22 - 29 mmol/L [facility] Anion Gap 12 12 - 20 [facility] Urea Nitrogen (BUN) 22(H) 9 - 16 mg/dL [facility] Creatinine, Serum 1.02 0.5 - 1.4 mg/dL [facility] Estimated Glomerular Filt Rate >60 [facility] Comment:Chronic Kidney Disea se: Estimated GFR < 60 mL/min/[id number] Kidney Disease: Estimated GFR < 15 mL/min/1.73m2 Glucose 134(H) 60 - 115 mg/dL [facility] Calcium 9.2 8.4 - 10.2 mg/dL [facility] Blood Venous blood specimen / Unknown 01/05/2025 7:59 AM EDT 01/05/2025 7:59 AM EDT us Isacc Wood MD LAB BLOOD ORDERABLES Final Resul t Performing Organization Address [facility] Co de Phone Number [facility] [address] [place] [phone] * (ABNORMAL) Albumin, Random Urine W/Creatinine (01/05/2025 7:56 AM EDT) Creatinine, Urine 52.75 mg/dL [facility] Microalbumin Urine 22.0 mg/L [facility] Microalbum Creatinine Ratio Ur 41.7(H) <30 ug/mg cr [facility] Comment:Albumin/Creatinine R atio Reference Ranges: Normal: < 30 ug/mg creatinine Microalbuminuria: 30 - 300 ug/mg creatinineClinical Albuminuria: > 300 ug/mg creatinine Urine (Urine, Random) 01/05/2025 7:56 AM EDT 01/05/2025 8:47 AM EDT Iscac Wood MD LAB URINE ORDERABLES Final Resul t Performing Organization Address City/State/[facility] Co de Phone Number [facility] [address] [place] [phone] * US Renal Complete (12/01/2024 4:00 PM EDT) Anatomical Region Laterality Modality Kidney Ultrasound 12/01/2024 4:00 PM EDT Narrative 12/01/2024 4:01 PM EDT [place] [address] Ultrasound Report Signed Patient: Vernon Lewis MR#: [id number] : 1960 Acct:[id number] Age/Sex: 64 / M ADM Date: 12/01/24 Loc: . Attending Dr: Elke OGDEN Ordering Physician: Elke Higginbotham Date of Service: 12/01/24 Procedure(s): US renal BI Accession Number(s): [id number] cc: Elke Higginbotham; Name,Isacc LOJA CLINICAL HISTORY: [...] cystic mass at the interpolar region, per pipe fitter ammonia note, this is at the site of [...] 12/01/24 1601 DD/ 1600 TD/TT: 12/01/24 1600 Circulation Man: Procedure Note Donotuseinterpreter, Image - 12/01/2024 [place] [address] Ultrasound Report Signed Patient: Vernon Lewis LMR#: [id number] : 1Acct:[id number] Age/Sex: 64 / MADM Date: 12/01/24 Loc: HO.US Attending Dr: Elke OGDEN Ordering Physician: Elke Higginbotham Date of Service: 12/01/24 Procedure(s): US renal BI Accession Number(s): [id number] cc: Elke Higginbotham; Name,Isacc LOJA CLINICAL HISTORY: [...] cystic mass at the interpolar region, per pipe fitter ammonia note, this is at the site of [...] 12/01/24 1601 DD/ 1600 TD/TT: 12/01/24 1600 Circulation Man: us [facility] External Provider IMG US PROCEDURES Final Result * (ABNORMAL) POCT HGB A1C (11/23/2024 1:16 PM EDT) Hemoglobin A1C 6.5(A) 4.0 - 5.7 % QC Media Lot # [id number] Lot# Expiration Date Blood 11/23/2024 1:16 PM EDT us Dexter Name POINT OF CARE TEST ENTER/EDIT OR DERABLES Final Result * POCT Glucose (11/23/2024 1:15 PM EDT) Only the most recent of2 resultswithin the time period is included. Glucose Blood, POC 182 60 - 200 mg/dL QC Media Lot # [id number] Lot# Expiration Date Blood Capillary blood specimen / Unknown 11/23/2024 1:15 PM EDT us Dexter Name POINT OF CARE TEST ENTER/EDIT OR DERABLES Final Result * (ABNORMAL) Comprehensive Metabolic Panel (10/07/2024 9:51 AM EDT) Sodium 136 135 - 145 mmol/L [facility] Potassium 4.2 3.3 - 5.1 mmol/L [facility] Chloride 102 96 - 108 mmol/L [facility] Carbon Dioxide 24 22 - 29 mmol/L [facility] Anion Gap 14 12 - 20 [facility] Urea Nitrogen (BUN) 9 9 - 16 mg/dL [facility] Creatinine, Serum 0.85 0.5 - 1.4 mg/dL [facility] Estimated Glomerular Filt Rate >60 [facility] Comment:Chronic Kidney Disea se: Estimated GFR < 60 mL/min/[id number] Kidney Disease: Estimated GFR < 15 mL/min/1.73m2 Glucose 253(H) 60 - 115 mg/dL [facility] Calcium 9.0 8.4 - 10.2 mg/dL [facility] Bilirubin, Total 0.3 0.0 - 1.0 mg/dL [facility] Aspartate Amino Transferase 22 5 - 37 U/L [facility] Alanine Aminotransferase 15 0 - 40 U/L [facility] Total Protein 6.5 6.5 - 8.0 g/dL [facility] Albumin Level 3.9 3.5 - 5.0 g/dL [facility] Alkaline Phosphatase 87 39 - 117 U/L [facility] Blood Venous blood specimen / Unknown 10/07/2024 9:51 AM EDT 10/07/2024 11:03 AM EDT us Isacc Name LAB BLOOD ORDERABLES Final Resul t [facility] [address] [place] [phone] * Colonoscopy (03/13/2024 2:44 PM EST) Anatomical Region Laterality Modality Endoscopy us Historical Provider ENDOSCOPY PROCEDURE ORDER LEEANNE Final Result from Last 3 Months or Most Recently Relevant to Health Maintenance Insurance MEDICARE Care Teams Network Control Supervisor Relationship Specialty Start Date End Date Name, MD Isacc [address] [place] [address] PCP - General Family Medicine 11/03/18
--- OUTSIDE RECORDS SUMMARY | 2025-01-06 12:07 | XMS_ITS | Encounter Summary ---
Author Organization [employer] Address [address] [facility] [address] [place] [address] Care Team Providers Care Cutter Tender Name Role Phone Name, Isacc LOJA Primary [...] Description 02/16/2025 2:30 PM EST Office Visit [facility] MEDICINE [address] [place] [phone] NameIsacc MD [address] [place] [phone] 02/26/2025 9:00 AM EST Office Visit [facility] MEDICINE [address] [place] [phone] Grant Ashley MD [address] [place] [phone] documented as of this encounter Visit Diagnoses Not on filedocumented in this encounter Additional Health Concerns Assessment Noted Time PHQ-9 Depression Total Score: 0 09/19/19 25 9:22 AM EDT documented as of this encounter Care Teams Cutter Tender Relationship Specialty Start Date End Date Isacc Wood MD [address] [place] [phone] PCP - General Family Medicine 11/03/18 documented as of this encounter
== END 2025-01-06 10:32 | disposition home or self-care (01) ==
LOC: HO.HHCX 10:31
PROVIDERS: PCP Internal Medicine Geriatric Medicine; Visit Provider Internal Medicine Geriatric Medicine
DX: M54.2 Cervicalgia (principal)
CPT/HCPCS: 72040

== ENCOUNTER → 2025-01-06 10:42 | Outpatient (BNV) | payer MEDICARE, SELFPAY | PROVIDERS: PCP Internal Medicine Geriatric Medicine; Visit Provider Radiology Diagnostic Radiology | DX: M50.321 Other cervical disc degeneration at C4-C5 level (principal) | CPT/HCPCS: 72040 ==

== ENCOUNTER 2025-01-07 08:20 | Outpatient (REF) | payer MEDICARE, SELFPAY ==
--- OUTSIDE RECORDS SUMMARY | 2025-01-05 15:45 | XMS_ITS | Encounter Summary ---
Author Organization [employer] Address [address] [facility] 7t [place] [address] Care Team Providers Care Private Watchman Name Role Phone Name, Isacc LOJA Primary Care Provider Reason for Visit * Reason Comments Follow-up Encounter Details Date Type Department Care Team ([facility] st Contact Info) Description 01/05/2025 3:45 PM EDT Office Visit [facility] MED[facility]INE [address] [place] [address] Name, MD Isacc [address] [place], [place] [phone] Hypertension, unspecified type (Primary Dx); Anxiety; Neck pain without injury; Heartburn; Dyspnea, unspecified type; Encounter for immunization Social History Tobacco Use Types Packs/Day Years Used Date Smoking Tobacco: Former Cigarettes 0.3 44 Q uit: 10/30/2024 Passive Smoke Exposure: Current Smokeless Tobacco: Never [...] AM EDT documented as of this encounter Last Filed Vital Signs Vital Sign Reading Time Taken Comments Blood Pressure 130/82 01/05/2025 3:43 PM EDT Pulse 68 01/05/2025 3:43 PM EDT Temperature 36.1 C (97 F) 01/05/2025 3:43 PM EDT Respiratory Rate 14 01/05/2025 3:43 PM EDT Oxygen Saturation 99% 01/05/2025 3:43 PM EDT Inhaled Oxygen Concentration - - Weight 74.5 kg (164 lb 3.2 oz) 01/05/2025 3:43 P M EDT Height 160 cm (5' 3 ) 01/05/2025 3:43 PM EDT Body Mass Index 29.09 01/05/2025 3:43 PM EDT documented in this encounter Progress Notes * Isacc Wood MD - 01/05/2025 3:45 PM EDT Subjective Patient ID: Vernon Monique is a 64 y.o. male who presents for Follow-up. Patient comes for a sick visit and we discussed several issues. The patient was having episodes of elevated blood pressure at home in the setting of anxiety. He was seen at the ER once for this complaint. At [facility] ER his workup was unremarkable. Since he was seen at [facility] ER on December 08 his dose of metoprolol was increased and the patient blood pressure has been better at home. He continues to have frequent anxiety and is interested in continuing sertraline at higher dose. The patient also complains of neck pain. He has neck discomfort when he moves the head from [id number]. There is no swelling or history of trauma and no arm radiculopathy. Patient also has noted shortness of breath after he started using Brilinta. He does not have any cough, no wheezing, no orthopnea, no leg edema, no recent weight gain. Review of Systems Constitutional: Negative for chills, fatigue and fever. HENT: Negative for sore throat. Respiratory: Positive for shortness of breath. Negative for cough and chest tightness. Cardiovascular: Negative for chest pain, palpitations and leg swelling. Gastrointestinal: Negative for abdominal pain and blood in stool. Heartburn Musculoskeletal: Positive for neck pain. Psychiatric/Behavioral: The patient is nervous/anxious. Objective Vitals: 01/05/25 1543 BP: 130/82 BP Location: Left arm Patient Position: Sitting BP Cuff Size: Adult Pulse: 68 Resp: 14 Temp: 97 ??F (36.1 ??C) TempSrc: Temporal SpO2: 99% Weight: 164 lb 3.2 oz (74.5 kg) Height: 5' 3 (1.6 m) Physical Exam Constitutional: Appearance: Normal appearance. Cardiovascular: Rate and Rhythm: Normal rate and regular rhythm. Heart sounds: No murmur heard. Pulmonary: Effort: Pulmonary effort is normal. No respiratory distress. Breath sounds: No wheezing, rhonchi or rales. Abdominal: Palpations: Abdomen is soft. Tenderness: There is no abdominal tenderness. Musculoskeletal: Right lower leg: No edema. Left lower leg: No edema. Neurological: Mental Status: He is alert. Assessment/Plan Diagnoses and all orders for this visit: Hypertension, unspecified type Comments: Well-controlled. Continue current medications. Anxiety Comments: I refilled sertraline at a dose of 100 mg daily. Orders: - sertraline (Zoloft) 100 MG tablet; Take 1 tablet (100 mg) by mouth Once per day. Neck pain without injury Comments: I suspect secondary to DJD. I recommended as needed acetaminophen and evaluation with x-ray of the cervical spine. Orders: - XR CERVICAL SPINE 3V; Future Heartburn Comments: Patient requested medication to treat heartburn. He has frequent heartburn and occasional nausea. Irecommended trial of daily PPI (omeprazole 40mg daily). Dyspnea, unspecified type Comments: Lungs are clear to auscultation. Normal oxygenation. No chest pains. No edema. 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 It could be a side effect of Brilinta Encounter for immunization - FLU VACCINE TRIVALENT [id number] (Fluarix) 19 yrs + Other orders - omeprazole (PriLOSEC) [address] capsule; Take 1 capsule (40 mg) by mouth before breakfast. Do not crush or chew. Future Appointments Date Time Provider Department Center 02/16/2025 2:30 PM Isacc Wood MD [facility] 02/26/2025 9:00 AM Grant Ashley MD [facility] documented in this encounter Plan of Treatment Upcoming Encounters Date Type Department Care Team (Late st Contact Info) Description 02/16/2025 2:30 PM EST Office Visit [address] [address] Isacc Wood MD [address] [place] [address] 02/26/2025 9:00 AM EST Office Visit [address] [address] Grant Ashley MD [address] [place] [address] documented as of this encounter Procedures Procedure Name Priority Date/Time Associated Diagnosis Comments XR CERVICAL SPINE 3V Routine 01/06/2025 10:51 AM EDT Neck pain without injury documented in this encounter Results * XR CERVICAL SPINE 3V (01/06/2025 10:51 AM EDT) Anatomical Region Laterality Modality Abdomen Radiographic Destini ging 01/06/2025 10:5 1 AM EDT Narrative 01/06/2025 10:59 AM EDT [address] [address] XRay Report Signed Patient: Vernon Lewis MR#: [id number] : 1960 Acct:[id number] Age/Sex: 64 / M ADM Date: 01/06/25 Loc: HO.HHCX Attending Dr: Isacc Wood MD Ordering Physician: Isacc Wood MD Date of Service: 01/06/25 Procedure(s): XR cervical spine 3V Accession Number(s): [id number] cc: Isacc Wood MD Reason for Exam: Chronic neck pain, decreased ROM of the shoulder EXAMINATION: XR CERVICAL SPINE 2-3 VIEWS HISTORY: Chronic neck pain, decreased ROM of the shoulder COMPARISON: There are no prior studies available for comparison. FINDINGS: AP, lateral, and open-mouth odontoid views of the cervical spine are submitted. Osseous mineralization is normal. Seven cervical vertebral bodies are identified maintaining normal height and alignment without evidence of fracture or subluxation. There is moderate degenerative disc disease at the C4-5 level, with disc space narrowing and osteophyte formation. The odontoid and lateral masses of C1 are intact. There is no prevertebral soft tissue swelling. Calcifications in the neck bilaterally are likely related to the internal carotid arteries. XR/XR cervical spine 3V IMPRESSION: Moderate degenerative disc disease at C4-5. Electronically signed by: Dennys Frances MD 01/06/2025 10:57 AM EDT Dictated By: Dennys Frances MD Signed By: <Electronically signed by Dennys Frances MD in OV> 01/06/25 1057 DD/ 1051 TD/TT: 01/06/25 105 Nail Welter: Procedure Note Donotuseinterpreter, Image - 01/06/[address] [address] XRay Report Signed Patient: Vernon Lewis LMR#: [id number] : 1Acct:[id number] Age/Sex: 64 / MADM Date: 01/06/25 Loc: HO.HHCX Attending Dr: Isacc Wood MD Ordering Physician: Isacc Wood MD Date of Service: 01/06/25 Procedure(s): XR cervical spine 3V Accession Number(s): [id number] cc: Isacc Wood MD Reason for Exam: Chronic neck pain, decreased ROM of the shoulder EXAMINATION: XR CERVICAL SPINE 2-3 VIEWS HISTORY: Chronic neck pain, decreased ROM of the shoulder COMPARISON: There are no prior studies available for comparison. FINDINGS: AP, lateral, and open-mouth odontoid views of the cervical spine are submitted. Osseous mineralization is normal. Seven cervical vertebral bodies are identified maintaining normal height and alignment without evidence of fracture or subluxation. There is moderate degenerative disc disease at the C4-5 level, with disc space narrowing and osteophyte formation. The odontoid and lateral masses of C1 are intact. There is no prevertebral soft tissue swelling. Calcifications in the neck bilaterally are likely related to the internal carotid arteries. XR/XR cervical spine 3V IMPRESSION: Moderate degenerative disc disease at C4-5. Electronically signed by: Dennys Frances MD 01/06/2025 10:57 AM EDT Dictated By: Dennys Frances MD Signed By: <Electronically signed by Dennys Frances MD in OV> 01/06/25 1057 DD/ 1051 TD/TT: 01/06/25 1051 Nail Welter: Isacc Wood MD IMG XR PROCEDURES Final Result documented in this encounter Visit Diagnoses Diagnosis Hypertension, unspecified type- Primary Anxiety Anxiety state, unspecified Neck pain without injury Heartburn Dyspnea, unspecified type Encounter for immunization documented in this encounter Additional Health Concerns Assessment Noted Time PHQ-9 Depression Total Score: 0 09/19/19 9:22 AM EDT documented as of this encounter Care Teams Private Watchman Relationship Specialty Start Date End Date Isacc Wood MD [address] [place] [address] PCP - General Family Medicine 11/03/18 documented as of this encounter
--- NOTE | ~2025-01-07 | CT_ITS ---
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 Severe coronary artery calcification. The visualized thyroid and mediastinum are unremarkable. No consolidation or pleural effusion. No suspicious pulmonary nodules. There is a 1.7 cm nodule arising from the upper pole of the right kidney. Density estimated at 41 Hounsfield units precontrast and 55 Hounsfield units postcontrast. There are multiple kidney cysts. The bones are intact. IMPRESSION: 1. No evidence of metastatic disease to the chest. 2. There is a 1.7 cm nodule arising from the upper pole of the right kidney. This may represent a solid nodule. Recommend further evaluation with ultrasound. This document has been electronically signed by: Osiris Toledo MD on 01/08/2025 13:28:15
--- OUTSIDE RECORDS SUMMARY | 2025-01-07 08:30 | XMS_ITS | Encounter Summary ---
Author Organization [employer] Address [address] [facility] [address]t [place] [address] Care Team Providers Care Chainstitch Elastic Attacher Name Role Phone Name, Isacc LOJA Primary Care Provider [phone] Reason for Visit * Reason Onset Date Comments requesting call back 11/03/2024 Encounter Details Date Type Department Care Team ([facility] st Contact Info) Description 11/03/2024 Telephone [facility] MEDICINE [address] [place] [address] Name, MD Isacc [address] [place] [address] requesting call back Social History Tobacco Use [...] to informed he is admi[facility] [place] [facility] . He will call back when he's recovery from His Heart Surgery on 11/04/2024. Sending to Dr. Dion EDGAR. * Telephone Encounter - Isacc Silva - 11/03/2024 1:13 PM EDT Tc from pt requesting a call back with the phone number of where he is going to get his surgery. Nofurther details provided. Contact pt at [phone] documented in this encounter Plan of Treatment Upcoming Encounters Date Type Department Care Team (Late st Contact Info) Description 02/16/2025 2:30 PM EST Office Visit [facility] MEDICINE [address] [place] [phone] Name, MD Isacc [address] [place] [address] 02/26/2025 9:00 AM EST Office Visit [facility] MEDICINE [address] [place], [place] [phone] Grant Ashley MD [address] [place] [address] documented as of this encounter Visit Diagnoses Not on filedocumented in this encounter Additional Health Concerns Assessment Noted Time PHQ-9 Depression Total Score: 0 09/19/19 25 9:22 AM EDT documented as of this encounter Care Teams Chainstitch Elastic Attacher Relationship Specialty Start Date End Date Name, MD Isacc [address] [place], [place] [phone] PCP - General Family Medicine 11/03/18 documented as of this encounter
--- OUTSIDE RECORDS SUMMARY | 2025-01-07 08:30 | XMS_ITS | Encounter Summary ---
Author Organization [employer] Address [address] [facility] [address]t [place] [address] Care Team Providers Care Economics Analyst Name Role Phone Name, Iscac LOJA Primary Care Provider [phone] Reason for Visit * Reason Onset Date Comments FYI 11/18/2024 Encounter Details Date Type Department Care Team ([facility] st Contact Info) Description 11/18/2024 Telephone [facility] MEDICINE [address] [place] [address] Name, MD Isacc [address] [place] [address] FYI Social History Tobacco Use Types Packs/Day [...] any questions you can contact pt at [phone]. (Azeri Speaker) documented in this encounter Plan of Treatment Upcoming Encounters Date Type Department Care Team (Late st Contact Info) Description 02/16/2025 2:30 PM EST Office Visit [facility] MEDICINE [address] [place] [address] Name, MD Isacc [address] [place] [phone] 02/26/2025 9:00 AM EST Office Visit [facility] MEDICINE [address] [place] [phone] Grant Ashley MD [address] [place] [phone] documented as of this encounter Visit Diagnoses Not on filedocumented in this encounter Additional Health Concerns Assessment Noted Time PHQ-9 Depression Total Score: 0 09/19/19 25 9:22 AM EDT documented as of this encounter Care Teams Economics Analyst Relationship Specialty Start Date End Date Name, MD Isacc [address] [place] [address] PCP - General Family Medicine 11/03/18 documented as of this encounter
--- OUTSIDE RECORDS SUMMARY | 2025-01-07 08:30 | XMS_ITS | Encounter Summary ---
Author Organization [employer] Address [address] 7t [place] [address] Care Team Providers Care Admitting Office Escort Name Role Phone Name, Isacc LOJA Primary Care Provider [phone] Encounter Details Date Type Department Care Team (Late st Contact Info) Description 11/12/[address] [facility] [address] [place] [address] Elizabeth Munson, RN Social History Tobacco Use [...] Description 02/16/2025 2:30 PM EST Office Visit [facility] [address] [place] [address] Name, MD Isacc [address] [place] [address] 02/26/2025 9:00 AM EST Office Visit [facility] [address] [place] [address] Grant Ashley MD [address] [place] [address] documented as of this encounter Visit Diagnoses Not on filedocumented in this encounter Additional Health Concerns Assessment Noted Time PHQ-9 Depression Total Score: 0 09/19/19 25 9:22 AM EDT documented as of this encounter Care Teams Admitting Office Escort Relationship Specialty Start Date End Date NameIsacc MD [address] [place] [address] PCP - General Family Medicine 11/03/18 documented as of this encounter
--- OUTSIDE RECORDS SUMMARY | 2025-01-07 08:30 | XMS_ITS | Encounter Summary ---
Author Organization [employer] Address [address] [facility] 7t [place] [address] Care Team Providers Care Reactor Service Operator Name Role Phone Name, Isacc LOJA Primary Care Provider [phone] Reason for Visit * Reason Comments Med Refill Encounter Details Date Type Department Care Team ([facility] st Contact Info) Description 05/22/2024 Refill [facility] [address] [place], [place] [phone] Grant Ahsley MD 230 [place], [place] [phone] Chronic low back pain, unspecified back pain [...] 2:30 PM EST Office Visit [facility] [address] [place] [address] NameIsacc MD [address] [place] [address] 02/26/2025 9:00 AM EST Office Visit [address] [address] Grant Ashley MD [address] [place] [address] documented as of this encounter Visit Diagnoses Diagnosis Chronic low back pain, unspecified back pain laterality, unspecified whether sciatica present documented in this encounter Additional Health Concerns Assessment Noted Time PHQ-9 Depression Total Score: 0 08/08/19 24 9:27 AM EDT documented as of this encounter Care Teams Reactor Service Operator Relationship Specialty Start Date End Date Isacc Wood MD [address] [place] [address] PCP - General Family Medicine 11/03/18 documented as of this encounter
--- OUTSIDE RECORDS SUMMARY | 2025-01-07 08:30 | XMS_ITS | Encounter Summary ---
Author Organization [employer] Address [address] [facility] 7t [place] [address] Care Team Providers Care Catalytic Converter Operator Helper Name Role Phone Name, Isacc LOJA Primary Care Provider [phone] Reason for Visit * Reason Comments Med Refill Encounter Details Date Type Department Care Team ([facility] st Contact Info) Description 05/22/2023 Refill [facility] 230 [place], [place] [phone] Name, MD Isacc 230 [place] [address] Social History Tobacco Use Types Packs/Day Years [...] Description 02/16/2025 2:30 PM EST Office Visit [address] [address] Name, MD Isacc [address] [place] [address] 02/26/2025 9:00 AM EST Office Visit [address] [address] Grant Ashley MD [address] [place] [address] documented as of this encounter Visit Diagnoses Not on filedocumented in this encounter Additional Health Concerns Assessment Noted Time PHQ-9 Depression Total Score: 6 03/21/20 22 10:54 AM EST documented as of this encounter Care Teams Catalytic Converter Operator Helper Relationship Specialty Start Date End Date Name, MD Isacc [address] [place] [address] PCP - General Family Medicine 11/03/18 documented as of this encounter
--- OUTSIDE RECORDS SUMMARY | 2025-01-07 08:30 | XMS_ITS | Encounter Summary ---
Author Organization [employer] Address [address] [facility] 7t [place] [address] Care Team Providers Care Drum Barker Operator Name Role Phone Name, Isacc LOJA Primary Care Provider Reason for Visit * Reason Comments Med Refill Encounter Details Date Type Department Care Team ([facility] st Contact Info) Description 07/17/2024 Refill [facility] 230 [place], [place] [phone] Grant Ashley MD 230 [place], [place] [phone] Chronic low back pain, unspecified back pain [...] Description 02/16/2025 2:30 PM EST Office Visit [facility] [address] [place] [address] NameIsacc MD [address] [place] [address] 02/26/2025 9:00 AM EST Office Visit [address] [address] Grant Ashley MD [address] [place] [address] documented as of this encounter Visit Diagnoses Diagnosis Chronic low back pain, unspecified back pain laterality, unspecified whether sciatica present documented in this encounter Additional Health Concerns Assessment Noted Time PHQ-9 Depression Total Score: 0 08/08/19 24 9:27 AM EDT documented as of this encounter Care Teams Drum Barker Operator Relationship Specialty Start Date End Date Isacc Wood MD [address] [place] [address] PCP - General Family Medicine 11/03/18 documented as of this encounter
--- OUTSIDE RECORDS SUMMARY | 2025-01-07 08:30 | XMS_ITS | Encounter Summary ---
Author Organization [employer] Address [address] [facility] 7t [place] [address] Care Team Providers Care Registered Art Therapist Name Role Phone Name, Isacc LOJA Primary Care Provider Reason for Visit * Reason Onset Date Comments Pain med, suboxone, CRS Dept 10/28/2023 Encounter Details Date Type Department Care Team (Late st Contact Info) Description 10/28/2023 Telephone [facility] MED[facility]INE 230 [place] [address] Name, MD Isacc 230 [place], [place] [phone] Pain med, suboxone, CRS Dept Social History [...] like patient had been receiving. TC via P/I#[id number], reviewed with patient that CRS department has [...] 5-325 MG tablet To be sent to: [facility]/pharmacy #[id number] - [place], [place] - [facility] States leaves on vacation tomorrow to [place] 10/29/23. documented in this encounter Plan of Treatment Upcoming Encounters Date Type Department Care Team (Late st Contact Info) Description 02/16/2025 2:30 PM EST Office Visit [facility] [address] [place] [phone] Name, MD Isacc [address] [place] [address] 02/26/2025 9:00 AM EST Office Visit [address] [address] Grant Ashley MD [address] [place] [address] documented as of this encounter Visit Diagnoses Not on filedocumented in this encounter Additional Health Concerns Assessment Noted Time PHQ-9 Depression Total Score: 0 08/08/19 24 9:27 AM EDT documented as of this encounter Care Teams Registered Art Therapist Relationship Specialty Start Date End Date Name, MD Isacc [address] [place] [address] PCP - General Family Medicine 11/03/18 documented as of this encounter
--- OUTSIDE RECORDS SUMMARY | 2025-01-07 08:30 | XMS_ITS | Encounter Summary ---
Author Organization [employer] Address [address] [facility] 7t [place] [address] Care Team Providers Care Guest Service Supervisor Name Role Phone Name, Isacc LOJA Primary Care Provider [phone] Reason for Visit * Reason Comments Med Refill Encounter Details Date Type Department Care Team ([facility] st Contact Info) Description 01/02/2025 Refill [facility] 230 [place], [place] [phone] Name, MD Isacc 230 [place] [address] Social History Tobacco Use Types Packs/Day Years [...] Description 02/16/2025 2:30 PM EST Office Visit [address] [address] Name, MD Isacc [address] [place] [address] 02/26/2025 9:00 AM EST Office Visit [address] [address] Grant Ashley MD [address] [place] [place] [address] documented as of this encounter Visit Diagnoses Not on filedocumented in this encounter Additional Health Concerns Assessment Noted Time PHQ-9 Depression Total Score: 0 09/19/19 25 9:22 AM EDT documented as of this encounter Care Teams Guest Service Supervisor Relationship Specialty Start Date End Date NameIsacc MD [address] [place] [place] [address] PCP - General Family Medicine 11/03/18 documented as of this encounter
--- OUTSIDE RECORDS SUMMARY | 2025-01-07 08:30 | XMS_ITS | Encounter Summary ---
Author Organization [employer] Address [address] [facility] [address] 7t [place] [address] Care Team Providers Care Personnel Analyst Name Role Phone Name, Isacc LOJA Primary Care Provider [phone] Encounter Details Date Type Department Care Team (Late st Contact Info) Description 11/12/2024 Orders Only [facility] [address] [place] [address] Elizabeth Munson, RN Social History Tobacco Use [...] Description 02/16/2025 2:30 PM EST Office Visit [facility] [address] [place] [address] Name, MD Isacc [address] [place] [address] 02/26/2025 9:00 AM EST Office Visit [facility] [address] [place] [address] Grant Ashley MD [address] [place] [address] documented as of this encounter Visit Diagnoses Not on filedocumented in this encounter Additional Health Concerns Assessment Noted Time PHQ-9 Depression Total Score: 0 09/19/19 25 9:22 AM EDT documented as of this encounter Care Teams Personnel Analyst Relationship Specialty Start Date End Date NameIsacc MD [address] [place] [address] PCP - General Family Medicine 11/03/18 documented as of this encounter
--- OUTSIDE RECORDS SUMMARY | 2025-01-07 08:30 | XMS_ITS | Encounter Summary ---
Author Organization [employer] Address [address] [facility] 7t [place] [address] Care Team Providers Care Certified Art Therapist Name Role Phone Name, Isacc LOJA Primary Care Provider [phone] Reason for Visit * Reason Onset Date Comments Nurse Triage 08/01/2023 Encounter Details Date Type Department Care Team ([facility] st Contact Info) Description 08/01/2023 Telephone [facility] 230 [place] [address] Name, MD Isacc 230 [place] [address] Nurse Triage Social History Tobacco Use Types [...] t he electric, gas, oil or water [employer] threatened to shut off services in your [...] 2:19 PM EDT No recent notes in [facility] for pt. T/C to pt for status check via [employer] #[id number]. Pt states he will not go to [...] advised of disposition, agrees to return to [facility] now. Will contact EMS for transport. 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) documented in this encounter Plan of Treatment Upcoming Encounters Date Type Department Care Team (Late st Contact Info) Description 02/16/2025 2:30 PM EST Office Visit [facility] [address] [place] [address] Name, MD Isacc [address] [place] [address] 02/26/2025 9:00 AM EST Office Visit [address] [address] Grant Ashley MD [address] [place] [address] documented as of this encounter Visit Diagnoses Not on filedocumented in this encounter Additional Health Concerns Assessment Noted Time PHQ-9 Depression Total Score: 6 03/21/20 22 10:54 AM EST documented as of this encounter Care Teams Certified Art Therapist Relationship Specialty Start Date End Date NameIsacc MD [address] [place] [address] PCP - General Family Medicine 11/03/18 documented as of this encounter
--- OUTSIDE RECORDS SUMMARY | 2025-01-07 08:30 | XMS_ITS | Clinical Summary ---
Author Organization [employer] Address [address] [facility] 7t [place] [address] Care Team Providers Care Work Force Advisor Name Role Phone Name, Isacc LOJA Primary Care Provider [phone] Allergies Active Allergy Reactions Criticality Noted Date [...] lding Chambers (OptiChamber Fannie) device Optichamber fannie [facility] spacer Q4h prn Active FreeStyle lancets 1 [...] under the skin at bedtime. 3 mL 11/24/192025 Active pen needle 32G x 4 mm [...] mouth Once per day. 30 tablet 11 01/06/20 25 2025 Active omeprazole (PriLOSEC) [address] capsule Take 1 capsule (40 mg) by mouth before breakfast. Do not crush or chew. 30 capsule 01/06/20 25 2025 Active cyclobenzaprin e (Flexeril) 10 MG tablet TAKE 1 TABLET BY MOUTH TWICE DAILY NEEDED FOR BACK MUSCLE SPASM 60 tablet 2 09/15/19 25 2024 Discontinued nicotine (Nicoderm CQ) 21 MG/24HR patch Place 1 patch on the skin 1 (one) time each day at the same time. 30 patch 11/13/19 25 09/04/ 2025 Discontinued metoprolol succinate XL (Toprol-XL) 100 MG 24 hr tablet Take 1 tablet by mouth Once per day. 11/11/19 25 2024 Discontinued(D ose adjustment) sertraline (Zoloft) 25 MG tablet Take 1 tablet (25 mg) by mouth Once per day for 7 days, THEN 2 tablets (50 mg) Once per day. 67 tablet 2 11/24/19 25 2024 Discontinued(D ose adjustment) sertraline (Zoloft) 100 MG tabletIndicati ons:Anxiety Take 1 tablet (100 mg) by mouth Once per day. 30 tablet 11 01/06/20 25 2024 Discontinued(R eorder (will not trigger notification to Pharmacy)) omeprazole (PriLOSEC) [address] capsule Take 1 capsule (40 mg) by mouth before breakfast. Do not crush or chew. 30 capsule 11 01/06/20 25 2024 Discontinued(R eorder (will not trigger notification to Pharmacy)) Active Problems Patient Care Coordination No te Formatting of this note migh t be different from the original. 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 Peripheral arterial occlusive disease 06/26/2018 Chronic [...] Description 01/05/2025 3:45 PM EDT Office Visit [facility] [address] [facility] [place] [place] [address] Isacc Wood MD Hypertension, unspecified type (Primary Dx); Anxiety; Neck pain without injury; Heartburn; Dyspnea, unspecified type; Encounter for immunization 01/05/2025 Travel 01/04/2025 Travel 01/02/2025 Refill [facility] [address] [place] [address] Isacc Wood MD 12/21/2024 11:15 AM EDT Telemedicine [facility] [address] [place] [address] Sadia Leslie RN Hypertension, unspecified type 12/21/2024 Travel 12/15/2024 Refill [facility] [address] [place] [address] Anita Trujillo MD 12/11/2024 9:00 AM EDT Office Visit [facility] [address] [place] [address] Grant Ashley MD Chronic low back pain, unspecified back pain laterality, unspecified whether sciatica present (Primary Dx) 12/11/2024 Travel 12/09/2024 Refill [facility] [address] [place] [address] Yvrose Hussein MD 12/08/2024 Refill [facility] [address] [place] [address] Nurys Toribio RN Chronic low back pain, unspecified back pain laterality, unspecified whether sciatica present 12/04/2024 Travel 12/04/2024 Refill [facility] [address] [place] [address] Grant Ashley MD Chronic low back pain, unspecified back pain laterality, unspecified whether sciatica present 12/01/2024 Orders Only [facility] External Provider, [facility] 11/23/2024 1:00 PM EDT Office Visit [facility] [address] [place] [address] Isacc Wood MD Coronary arteriosclerosis in patient with history of previous myocardial infarction (Primary Dx); Hyperkalemia; Type 2 diabetes mellitus with other circulatory complication, without long-term current use of insulin ([facility]); Panic attacks 11/23/2024 Travel 11/19/2024 Refill [facility] [place] [address] Isacc Wood MD 11/18/2024 Telephone [facility] [place] [address] Isacc Wood MD FYI 11/12/2024 Orders Only [facility] [place] [address] Elizabeth Munson, DIANA 11/12/2024 Orders Only [facility] [address] [place], [place] [address] Elizabeth Munson, DIANA 11/12/2024 Refill [facility] [place] [address] Elizabeth Munson RN 11/11/2024 Patient Outreach [facility] [place] [address] Isacc Wood MD Transition Of Care (Tcm) (HDF scheduled) 11/06/2024 Telephone [facility] [place] [address] Isacc Wood MD home orders 11/03/2024 Telephone [facility] [place] [address] Isacc Wood MD requesting call back 11/03/2024 Telephone [facility] [place] [address] Isacc Wood MD 10/23/2024 9:15 AM EDT Office Visit [facility] [place] [address] Isacc Wood MD Dyspnea on exertion (Primary Dx); Weight gain; Leg edema; Type 2 diabetes mellitus with other circulatory complication, without long-term current use of insulin (CMS/HCC); Urine retention; Peripheral arterial occlusive disease (CMS/HCC) 10/23/2024 Travel 10/22/2024 Telephone [facility] [place] [address] Isacc Wood MD Chart Prep 10/08/2024 1:30 PM EDT Telemedicine [facility] [address] [place] [address] Josette Kelly, DIANA Essential hypertension 10/08/2024 Telephone [facility] [address] [place] [address] Name, MD Isacc 10/08/2024 Travel from Last 3 Months Immunizations [...] 2:30 PM EST Office Visit [facility] [address] [facility] [place] [address] Name, MD Isacc [facility] [place] [address] 02/26/2025 9:00 AM EST Office Visit [facility] [address] [facility] [place] [phone] Grant Ashley MD [address] [facility] [place] [phone] Health Maintenance Due Date Last Done Comments [...] 11/02/2021, Additional history exists Diabetes: Hemoglobin A1C 05/26/202511/23/2 025, 06/18/2024, 11/13/2023, Additional history exists Alcohol/Substance [...] AM EDT Narrative 01/06/2025 10:59 AM EDT [address] [address] XRay Report Signed Patient: Vernon Lewis MR#: [id number] : 1960 Acct:[id number] Age/Sex: 64 / M ADM Date: 01/06/25 Loc: HO.HHCX Attending Dr: Isacc Wood MD Ordering Physician: Isacc Wood MD Date of Service: 01/06/25 Procedure(s): XR cervical spine 3V Accession Number(s): [id number] cc: Isacc Wood MD Reason for Exam: [...] 01/06/25 1057 DD/ 1051 TD/TT: 01/06/25 1051 Ship Pilot Dispatcher: Procedure Note Donotuseinterpreter, Image - 01/06/[address] [address] XRay Report Signed Patient: Vernon Lewis LMR#: [id number] : 1960cct:[id number] Age/Sex: 64 / MADM Date: 01/06/25 Loc: HO.HHCX Attending Dr: Isacc Wood MD Ordering Physician: Isacc Wood MD Date of Service: 01/06/25 Procedure(s): XR cervical spine 3V Accession Number(s): [id number] cc: Isacc Wood MD Reason for Exam: [...] 01/06/25 1057 DD/ 1051 TD/TT: 01/06/25 1051 Ship Pilot Dispatcher: us Isacc Name IMG XR PROCEDURES Final Result * (ABNORMAL) Lipid Panel, Standard (01/05/2025 7:59 AM EDT) Triglycerides 78 <150 mg/dL [facility] Comment:Desirable Triglyceri de: less than 150 mg/dLBorderline High Triglyceride 150-199 mg/dLHigh Triglyceride: 200-499 mg/dLVery High Triglyceride: greater than or equal to 5OO mg/dL Cholesterol 116 <200 mg/dL [facility] Comment:Desirable Cholestero l: less than 200 mg/dLBorderline High Cholesterol: 200-239 mg/dLHigh Cholesterol: greater than 239 mg/dL LDL Cholesterol Calculated 63 <100 mg/dL [facility] Comment:Desirable LDL: less than 100 mg/dLNear Optimal/Above Optimal LDL: 110- 129 mg/dLBorderline High LDL: 130-159 mg/dLHigh LDL: 160-189 mg/dLVery High LDL: greater than or equal to 190 mg/dL HDL Cholesterol 38(L) >40 mg/dL [facility] Comment:Desirable HDL: great er than 40 mg/dL Note: This HDL assay may give artificially low results in patients with liver disease. Blood Venous blood specimen / Unknown 01/05/2025 7:59 AM EDT 01/05/2025 7:59 AM EDT us Isacc Wood MD LAB BLOOD ORDERABLES Final Resul t Performing Organization Address [facility] de Phone Number [facility] [address] [place] [phone] * (ABNORMAL) Basic Metabolic Panel (01/05/2025 7:59 AM EDT) Sodium 139 135 - 145 mmol/L [facility] Potassium 4.6 3.3 - 5.1 mmol/L [facility] Chloride 105 96 - 108 mmol/L [facility] Carbon Dioxide 27 22 - 29 mmol/L [facility] Anion Gap 12 12 - 20 [facility] Urea Nitrogen (BUN) 22(H) 9 - 16 mg/dL [facility] Creatinine, Serum 1.02 0.5 - 1.4 mg/dL [facility] Estimated Glomerular Filt Rate >60 [facility] Comment:Chronic Kidney Disea se: Estimated GFR < 60 mL/min/1.89p3Gxmyos Kidney Disease: Estimated GFR < 15 mL/min/1.73m2 Glucose 134(H) 60 - 115 mg/dL [facility] Calcium 9.2 8.4 - 10.2 mg/dL [facility] Blood Venous blood specimen / Unknown 01/05/2025 7:59 AM EDT 01/05/2025 7:59 AM EDT us Isacc Wood MD LAB BLOOD ORDERABLES Final Resul t Performing Organization Address [facility] Co de Phone Number [facility] [address] [place] [address] [phone] * (ABNORMAL) Albumin, Random Urine W/Creatinine (01/05/2025 7:56 AM EDT) Creatinine, Urine 52.75 mg/dL [facility] Microalbumin Urine 22.0 mg/L [facility] Microalbum Creatinine Ratio Ur 41.7(H) <30 ug/mg cr [facility] Comment:Albumin/Creatinine R atio Reference Ranges: Normal: < 30 ug/mg creatinine Microalbuminuria: 30 - 300 ug/mg creatinineClinical Albuminuria: > 300 ug/mg creatinine Urine (Urine, Random) 01/05/2025 7:56 AM EDT 01/05/2025 8:47 AM EDT us Isacc Wood MD LAB URINE ORDERABLES Final Resul t Performing Organization Address City/State/[facility] Co de Phone Number [facility] [address] [place] [phone] * US Renal Complete (12/01/2024 4:00 PM EDT) Anatomical Region Laterality Modality Kidney Ultrasound 12/01/2024 4:00 PM EDT Narrative 12/01/2024 4:01 PM EDT [place] [address] Ultrasound Report Signed Patient: Vernon Lewis MR#: [id number] : 1960 Acct:[id number] Age/Sex: 64 / M ADM Date: 12/01/24 Loc: .US Attending Dr: Elke OGDEN Ordering Physician: Elke Higginbotham Date of Service: 12/01/24 Procedure(s): US renal BI Accession Number(s): [id number] cc: Elke Higginbotham; Name,Isacc LOJA CLINICAL HISTORY: [...] cystic mass at the interpolar region, per cook helper meat note, this is at the site of [...] 12/01/24 1601 DD/ 1600 TD/TT: 12/01/24 1600 Ship Pilot Dispatcher: Procedure Note Donotuseinterpreter, Image - 12/01/2024 [place] [address] Ultrasound Report Signed Patient: Vernon Lewis LMR#: [id number] : 1Acct:[id number] Age/Sex: 64 / MADM Date: 12/01/24 Loc: HO.US Attending Dr: Elke OGDEN Ordering Physician: Elke Higginbotham Date of Service: 12/01/24 Procedure(s): US renal BI Accession Number(s): [id number] cc: Elke Higginbotham; Name,Isacc LOJA CLINICAL HISTORY: [...] cystic mass at the interpolar region, per cook helper meat note, this is at the site of [...] 12/01/24 1601 DD/ 1600 TD/TT: 12/01/24 1600 Ship Pilot Dispatcher: [facility] External Provider IMG US PROCEDURES Final Result * (ABNORMAL) POCT HGB A1C (11/23/2024 1:16 PM EDT) Hemoglobin A1C 6.5(A) 4.0 - 5.7 % QC Media Lot # [id number] Lot# Expiration Date 4,727 Blood 11/23/2024 1:16 PM EDT Isacc Wood MD POINT OF CARE TEST ENTER/EDIT OR DERABLES Final Result * POCT Glucose (11/23/2024 1:15 PM EDT) Only the most recent of2 resultswithin the time period is included. Pathologist [facility] Glucose Blood, POC 182 60 - 200 mg/dL QC Media Lot # [id number] Lot# Expiration Date Blood Capillary blood specimen / Unknown 11/23/2024 1:15 PM EDT us Isacc Wood MD POINT OF CARE TEST ENTER/EDIT OR DERABLES Final Result * (ABNORMAL) Comprehensive Metabolic Panel (10/07/2024 9:51 AM EDT) [facility] Sodium 136 135 - 145 mmol/L [facility] Potassium 4.2 3.3 - 5.1 mmol/L [facility] Chloride 102 96 - 108 mmol/L [facility] Carbon Dioxide 24 22 - 29 mmol/L [facility] Anion Gap 14 12 - 20 [facility] Urea Nitrogen (BUN) 9 9 - 16 mg/dL [facility] Creatinine, Serum 0.85 0.5 - 1.4 mg/dL [facility] Estimated Glomerular Filt Rate >60 [facility] Comment:Chronic Kidney Disea se: Estimated GFR < 60 mL/min/1.37o5Zocvsf Kidney Disease: Estimated GFR < 15 mL/min/1.73m2 Glucose 253(H) 60 - 115 mg/dL [facility] Calcium 9.0 8.4 - 10.2 mg/dL [facility] Bilirubin, Total 0.3 0.0 - 1.0 mg/dL [facility] Aspartate Amino Transferase 22 5 - 37 U/L [facility] Alanine Aminotransferase 15 0 - 40 U/L [facility] Total Protein 6.5 6.5 - 8.0 g/dL [facility] Albumin Level 3.9 3.5 - 5.0 g/dL [facility] Alkaline Phosphatase 87 39 - 117 U/L [facility] Blood Venous blood specimen / Unknown 10/07/2024 9:51 AM EDT 10/07/2024 11:03 AM EDT us Isacc Wood MD LAB BLOOD ORDERABLES Final Resul t [facility] [address] [place] [address] [phone] * Colonoscopy (03/13/2024 2:44 PM EST) Anatomical Region Laterality Modality Endoscopy us Historical Provider ENDOSCOPY PROCEDURE ORDER LEEANNE Final Result from Last 3 Months or Most Recently Relevant to Health Maintenance Insurance MEDICARE Care Teams Work Force Advisor Relationship Specialty Start Date End Date Name, MD Isacc [address] [place] [phone] PCP - General Family Medicine 11/03/18
--- OUTSIDE RECORDS SUMMARY | 2025-01-07 08:30 | XMS_ITS | Encounter Summary ---
Author Organization [employer] Address [address] [facility] [address] 7[address] [place] [address] Care Team Providers Care Inspector Packer Glass Container Name Role Phone Name, Isacc LOJA Primary Care Provider [phone] Encounter Details Date Type Department Care Team ([facility] st Contact Info) Description 11/03/2024 Telephone [facility] [address] [place], [place] [phone] Name, MD Isacc [address] [place], [place] [phone] Social History Tobacco Use Types Packs/Day Years [...] Description 02/16/2025 2:30 PM EST Office Visit [facility] [address] [place] [phone] Isacc Wood MD [address] [place] [address] 02/26/2025 9:00 AM EST Office Visit [address] [address] Grant Ashley MD [address] [place] [address] documented as of this encounter Visit Diagnoses Not on filedocumented in this encounter Additional Health Concerns Assessment Noted Time PHQ-9 Depression Total Score: 0 09/19/19 25 9:22 AM EDT documented as of this encounter Care Teams Inspector Packer Glass Container Relationship Specialty Start Date End Date Isacc Wood MD [address] [place] [address] PCP - General Family Medicine 11/03/18 documented as of this encounter
--- OUTSIDE RECORDS SUMMARY | 2025-01-07 08:31 | XMS_ITS | Encounter Summary ---
Author Organization [employer] Address [address] [facility] 7t [place] [address] Care Team Providers Care Chief Vendor Quality Name Role Phone Name, Isacc LOJA Primary Care Provider [phone] Reason for Visit * Reason Comments Med Refill Encounter Details Date Type Department Care Team ([facility] st Contact Info) Description 02/05/2023 Refill [facility] [address] [place], [place] [phone] Name, MD Isacc [address] [place] [address] Social History Tobacco Use Types Packs/Day Years [...] Description 02/16/2025 2:30 PM EST Office Visit [address] [address] Name, MD Isacc [address] [place] [address] 02/26/2025 9:00 AM EST Office Visit [address] [address] Grant Ashley MD [address] [place] [address] documented as of this encounter Visit Diagnoses Not on filedocumented in this encounter Additional Health Concerns Assessment Noted Time PHQ-9 Depression Total Score: 6 03/21/20 22 10:54 AM EST documented as of this encounter Care Teams Chief Vendor Quality Relationship Specialty Start Date End Date Name, MD Isacc [address] [place] [address] PCP - General Family Medicine 11/03/18 documented as of this encounter
--- OUTSIDE RECORDS SUMMARY | 2025-01-07 08:31 | XMS_ITS | Encounter Summary ---
Author Organization [employer] Address [address] [facility] 7t [place] [address] Care Team Providers Care Fish And Wildlife Biologist Name Role Phone Name, Isacc LOJA Primary Care Provider [phone] Reason for Visit * Reason Comments Med Refill Encounter Details Date Type Department Care Team ([facility] st Contact Info) Description 03/09/[address] [facility] [address] [place], [place] [phone] Name, MD Isacc [address] [place] [address] Seasonal allergic rhinitis, unspecified trigger Social History [...] Description 02/16/2025 2:30 PM EST Office Visit [address] [address] NameIsacc MD [address] [place] [address] 02/26/2025 9:00 AM EST Office Visit [facility] [address] [place] [address] Grant Ashley MD [address] [place] [address] documented as of this encounter Visit Diagnoses Diagnosis Seasonal allergic rhinitis, unspecified trigger documented in this encounter Additional Health Concerns Assessment Noted Time PHQ-9 Depression Total Score: 6 03/21/20 22 10:54 AM EST documented as of this encounter Care Teams Fish And Wildlife Biologist Relationship Specialty Start Date End Date NameIsacc MD [address] [place] [address] PCP - General Family Medicine 11/03/18 documented as of this encounter
--- OUTSIDE RECORDS SUMMARY | 2025-01-07 08:31 | XMS_ITS | Encounter Summary ---
Author Organization [employer] Address [address] [facility] 7t [place] [address] Care Team Providers Care Manager Pricing Name Role Phone Name, Isacc LOJA Primary Care Provider [phone] Reason for Visit * Reason Comments Med Refill Encounter Details Date Type Department Care Team ([facility] st Contact Info) Description 02/04/2023 Refill [facility] [address] [place], [place] [phone] Name, MD Isacc [address] [place] [address] Chronic low back pain, unspecified back pain [...] 2:30 PM EST Office Visit [facility] [address] [place] [address] Isacc Wood MD [address] [place] [address] 02/26/2025 9:00 AM EST Office Visit [address] [address] Grant Ashley MD [address] [place] [address] documented as of this encounter Visit Diagnoses Diagnosis Chronic low back pain, unspecified back pain laterality, unspecified whether sciatica present documented in this encounter Additional Health Concerns Assessment Noted Time PHQ-9 Depression Total Score: 6 03/21/20 22 10:54 AM EST documented as of this encounter Care Teams Manager Pricing Relationship Specialty Start Date End Date Isacc Wood MD [address] [place] [address] PCP - General Family Medicine 11/03/18 documented as of this encounter
--- OUTSIDE RECORDS SUMMARY | 2025-01-07 08:31 | XMS_ITS | Encounter Summary ---
Author Organization [employer] Address [address] [facility] [address] [place] [address] Care Team Providers Care Cleaner Laboratory Equipment Name Role Phone Name, Isacc LOJA Primary Care Provider [phone] Encounter Details Date Type Department Care Team [...] 2:30 PM EST Office Visit [facility] [address] [place] [address] NameIsacc MD [address] [place] [address] 02/26/2025 9:00 AM EST Office Visit [facility] [address] [place] [address] Grant Ashley MD [address] [place] [address] documented as of this encounter Visit Diagnoses Not on filedocumented in this encounter Additional Health Concerns Assessment Noted Time PHQ-9 Depression Total Score: 0 09/19/19 25 9:22 AM EDT documented as of this encounter Care Teams Cleaner Laboratory Equipment Relationship Specialty Start Date End Date Isacc Wood MD [address] [place] [address] PCP - General Family Medicine 11/03/18 documented as of this encounter
--- OUTSIDE RECORDS SUMMARY | 2025-01-07 08:31 | XMS_ITS | Encounter Summary ---
Author Organization [employer] Address [address] [place] [address] 7t [place] [address] Care Team Providers Care Tool Lathe Operator Name Role Phone Name, Isacc LOJA Primary Care Provider [phone] Reason for Visit * Reason Onset Date Comments Med Refill 11/05/2022 Encounter Details Date Type Department Care Team (Late st Contact Info) Description 11/05/2022 Telephone [facility] 230 [place], [place] [phone] Name, MD Isacc [address] [place] [address] Med Refill Social History Tobacco Use Types [...] 10 MG tablet to be sent to [facility]/pharmacy #[id number] - [place], [place] - [address] documented in this encounter Plan of Treatment Upcoming Encounters Date Type Department Care Team (Late st Contact Info) Description 02/16/2025 2:30 PM EST Office Visit [facility] [address] [place] [phone] Isacc Wood MD [address] [place] [address] 02/26/2025 9:00 AM EST Office Visit [facility] [address] [place] [address] Grant Ashley MD [address] [place] [address] documented as of this encounter Visit Diagnoses Not on filedocumented in this encounter Additional Health Concerns Assessment Noted Time PHQ-9 Depression Total Score: 6 03/21/20 22 10:54 AM EST documented as of this encounter Care Teams Tool Lathe Operator Relationship Specialty Start Date End Date Isacc Wood MD [address] [place] [address] PCP - General Family Medicine 11/03/18 documented as of this encounter
--- OUTSIDE RECORDS SUMMARY | 2025-01-07 08:31 | XMS_ITS | Encounter Summary ---
Author Organization [employer] Address [address] [place] [address] 7 [place] [address] Care Team Providers Care Customs And Immigration Officer Name Role Phone Name, Isacc LOJA Primary Care Provider [phone] Reason for Visit * Reason Comments Med Refill Encounter Details Date Type Department Care Team (Late Contact Info) Description 01/07/2023 Refill [facility] [address] [place] [address] [phone] NameIsacc MD [address] [place] [address] [phone] Social History Tobacco Use Types Packs/Day Years [...] Description 02/16/2025 2:30 PM EST Office Visit [facility] [address] [place] [address] [phone] NameIsacc MD [address] [place] [address] [phone] 02/26/2025 9:00 AM EST Office Visit [facility] [address] [place] [address] Grant Ashley MD [address] [place] [address] documented as of this encounter Visit Diagnoses Not on filedocumented in this encounter Additional Health Concerns Assessment Noted Time PHQ-9 Depression Total Score: 6 03/21/20 22 10:54 AM EST documented as of this encounter Care Teams Customs And Immigration Officer Relationship Specialty Start Date End Date Name, MD Isacc [address] [place] [address] PCP - General Family Medicine 11/03/18 documented as of this encounter
--- OUTSIDE RECORDS SUMMARY | 2025-01-07 08:31 | XMS_ITS | Encounter Summary ---
Author Organization [employer] Address [address] [facility] 7t [place] [address] Care Team Providers Care Petroleum Geology Faculty Member Name Role Phone Name, Isacc LOJA Primary Care Provider [phone] Reason for Visit * Reason Onset Date Comments Med Refill 10/05/2022 Encounter Details Date Type Department Care Team (Late st Contact Info) Description 10/05/2022 Telephone [facility] [address] [place], [place] [phone] Name, MD Isacc [address] [place] [address] Med Refill Social History Tobacco Use Types [...] Description 02/16/2025 2:30 PM EST Office Visit [facility] [address] [place] [phone] Name, MD Isacc [address] [place] [phone] 02/26/2025 9:00 AM EST Office Visit [facility] [address] [place] [address] Grant Ashley MD [address] [place] [phone] documented as of this encounter Visit Diagnoses Not on filedocumented in this encounter Additional Health Concerns Assessment Noted Time PHQ-9 Depression Total Score: 6 03/21/20 22 10:54 AM EST documented as of this encounter Care Teams Petroleum Geology Faculty Member Relationship Specialty Start Date End Date Name, MD Isacc [address] [place] [phone] PCP - General Family Medicine 11/03/18 documented as of this encounter
--- OUTSIDE RECORDS SUMMARY | 2025-01-07 08:31 | XMS_ITS | Encounter Summary ---
Author Organization [employer] Address [address] [facility] 7t [place] [address] Care Team Providers Care Sifting Operator Name Role Phone Name, Isacc LOJA Primary Care Provider [phone] Encounter Details Date Type Department Care Team (Late st Contact Info) Description 03/13/2024 Orders Only [facility] [address] [place] [address] Provider, MD Zoey Social History Tobacco Use [...] 2:30 PM EST Office Visit [facility] MED[facility]INE [address] [place] [phone] NameIsacc MD [address] [place] [phone] 02/26/2025 9:00 AM EST Office Visit [facility]INE [address] [place] [address] Grant Ashley MD [address] [place] [phone] documented as of this encounter Procedures Procedure [...] documented as of this encounter Care Teams Sifting Operator Relationship Specialty Start Date End Date NameIsacc MD [address] [place] [phone] PCP - General Family Medicine 11/03/18 documented as of this encounter
--- OUTSIDE RECORDS SUMMARY | 2025-01-07 08:31 | XMS_ITS | Encounter Summary ---
Author Organization [employer] Address [address] [facility] 7t [place] [address] Care Team Providers Care Manager Financial Reporting Name Role Phone Name, Isacc LOJA Primary Care Provider [phone] Reason for Visit * Reason Comments Med Refill Encounter Details Date Type Department Care Team ([facility] st Contact Info) Description 12/04/2024 Refill [facility] [address] [place], [place] [phone] Grant Ashley MD [address] [place], [place] [phone] Chronic low back pain, unspecified back pain [...] Description 02/16/2025 2:30 PM EST Office Visit [facility] [address] [place] [phone] NameIsacc MD [address] [place] [phone] 02/26/2025 9:00 AM EST Office Visit [facility] [address] [place] [address] Grant Ashley MD [address] [place] [phone] documented as of this encounter Visit Diagnoses Diagnosis Chronic low back pain, unspecified back pain laterality, unspecified whether sciatica present documented in this encounter Additional Health Concerns Assessment Noted Time PHQ-9 Depression Total Score: 0 09/19/19 25 9:22 AM EDT documented as of this encounter Care Teams Manager Financial Reporting Relationship Specialty Start Date End Date Isacc Wood MD [address] [place] [phone] PCP - General Family Medicine 11/03/18 documented as of this encounter
--- OUTSIDE RECORDS SUMMARY | 2025-01-07 08:31 | XMS_ITS | Encounter Summary ---
Author Organization [employer] Address [address] [place] [address] 7t [place] [address] Care Team Providers Care Condenser Cleaner Name Role Phone Name, Isacc LOJA Primary Care Provider [phone] Encounter Details Date Type Department Care Team (Late Contact Info) Description 09/17/[address] [address] NameIsacc MD [address] [place] [phone] Social History Tobacco Use Types Packs/Day Years [...] Description 02/16/2025 2:30 PM EST Office Visit [address] [phone] Isacc Wood MD [address] [place] [address] 02/26/2025 9:00 AM EST Office Visit [address] [address] Grant Ashley MD [address] [place] [address] documented as of this encounter Procedures Procedure Name Priority Date/Time Associated Diagnosis Comments COLONOSCOPY Routine 02/06/2018 12:51 PM EDT documented in this encounter Results * Colonoscopy (02/06/2018 12:51 PM EDT) Colonoscopy Normal Normal Narrative Rosalina Castro - 02/06/2018 12:51 PM EDT Recommended 5 years ( [facility]) us Historical Provider HEALTH MAINTENANCE Final Result documented in this encounter Visit Diagnoses Not on filedocumented in this encounter Additional Health Concerns Assessment Noted Time PHQ-9 Depression Total Score: 6 03/21/20 22 10:54 AM EST documented as of this encounter Care Teams Condenser Cleaner Relationship Specialty Start Date End Date Name, MD Isacc [address] [place] [address] PCP - General Family Medicine 11/03/18 documented as of this encounter
--- OUTSIDE RECORDS SUMMARY | 2025-01-07 08:31 | XMS_ITS | Encounter Summary ---
Author Organization [employer] Address [address] [facility] [address] 7t [place] [address] Care Team Providers Care Printer'S Devil Name Role Phone Name, Isacc LOJA Primary Care Provider [phone] Encounter Details Date Type Department Care Team [...] Office Visit [facility] MED[facility]INE [address] [place] [phone] Name, MD Isacc [address] [place] [address] 02/26/2025 9:00 AM EST Office Visit [address] [address] Grant Ashley MD [address] [place] [address] documented as of this encounter Visit Diagnoses Not on filedocumented in this encounter Additional Health Concerns Assessment Noted Time PHQ-9 Depression Total Score: 0 09/19/19 25 9:22 AM EDT documented as of this encounter Care Teams Printer'S Devil Relationship Specialty Start Date End Date Isacc Wood MD [address] [place] [phone] PCP - General Family Medicine 11/03/18 documented as of this encounter
[2025-01-07] MEDS: iohexoL 350 MG/ML 100 ML INFUS..BTL IV (09:11)
== END 2025-01-07 08:21 | disposition home or self-care (01) ==
LOC: HO.CT 08:20
PROVIDERS: PCP Internal Medicine Geriatric Medicine; Visit Provider Nurse Practitioner Family
DX: C64.2 Malignant neoplasm of left kidney, except renal pelvis (principal)
CPT/HCPCS: 71270; Q9967

== ENCOUNTER → 2025-01-07 08:22 | Outpatient (BNV) | payer MEDICARE, SELFPAY | PROVIDERS: PCP Internal Medicine Geriatric Medicine; Visit Provider Radiology Diagnostic Radiology | DX: C64.2 Malignant neoplasm of left kidney, except renal pelvis (principal); N28.89 Other specified disorders of kidney and ureter | CPT/HCPCS: 71270 ==

== ENCOUNTER 2025-02-24 09:11 | Outpatient (REF) | payer MEDICARE, SELFPAY ==
--- OUTSIDE RECORDS SUMMARY | 2025-02-21 23:59 | XMS_ITS | Continuity of Care Document ---
Author Organization [facility] Address [address] [place] [address]- Care Team Providers Care Infrastructure Project Manager Name Role Phone Name Isacc LOJA Primary Care Physician [place] [facility] [place] 01/22[place]25 - 02/21/25 [facility] [address] [place] [address]- Attending Physician: Jagjit Lott Admitting Physician: Jagjit Lott Referring Physician: Admtr ArKinza Encounter Type: Triage Allergies, Adverse Reactions, Alerts Substance Criticality Severity Reaction Reaction Severity Status Brilinta (ticagrelor) Active Medications acetaminophen 325 mg oral tablet 650 mg, By Mouth, 3 times a day, PRN, Temperature Greater than 100.5, # 90 tablet, Refills 0, Tot. Refills 0, Maintenance, Pain , Mild, 11/10/24 11:01:00 AM EDT, Route to Pharmacy Electronically, [facility], Partial fill upon patient request if the prescription is for a schedule II opioid drug., 160, cm, 11/10/24 7:16:00 EDT, Height, 70, kg, 10/30/24 1:20:00 EDT, Dry Weight Start Date: 11/10/24 Status: Ordered Medication Dispense Status: Completed Quantity: 90.0 Unit: tablet Total Allowed Fills: 1 Fills Dispensed: 0 amLODIPine 5 mg oral tablet 5 mg, 1, tablet, By Mouth, Daily, # 90 tablet, Refills 3, Tot. Refills 3, Maintenance, 10/22/24 9:01:00 AM EDT, Route to Pharmacy Electronically, [facility]/pharmacy #[id number], Partial fill upon patient request if the prescription is for a schedule II opioid drug., 161, cm, 10/13/24 8:19:00 EDT, Height, 70, kg, 03/13/24 8:17:00 EST, Dry Weight Start Date: 10/22/24 Status: Ordered Medication Dispense Status: Completed Quantity: 90.0 Unit: tablet Total Allowed Fills: 4 Fills Dispensed: 0 aspirin 81 mg oral tablet, chewable 81 mg, 1, tablet, By Mouth, Daily, # 30 tablet, Refills 0, Tot. Refills 0, Maintenance, 11/10/24 10:35:00 AM EDT, Route to Pharmacy Electronically, [facility], Partial fill upon patient request if the prescription is for a schedule II opioid drug., 160, cm, 11/10/24 7:16:00 EDT, Height,70, kg, 10/30/24 1:20:00 EDT, Dry Weight Start Date: 11/10/24 Status: Ordered Medication Dispense Status: Completed Quantity: 30.0 Unit: tablet Total Allowed Fills: 1 Fills Dispensed: 0 atorvastatin 80 mg oral tablet 1 tablet = 80 mg, By Mouth, Daily, # 30 tablet, 11 Refills, Maintenance, 11/10/24 10:36:00 AM EDT, Tablet, [facility], 160, cm, 11/10/24 7:16:00 EDT, Height, 70, kg, 10/30/24 1:20:00 EDT,Dry Weight Start Date: 11/10/24 Status: Ordered Medication Dispense Status: Completed Quantity: 30.0 Unit: tablet Total Allowed Fills: 12 Fills Dispensed: 0 bethanechol 50 mg oral tablet 1 tablet = 50 mg, By Mouth, 2 times a day, 0 Refills, Maintenance, 11/14/24 4:39:00 PM EDT, Partial fill upon patient request if the prescription is for a schedule II opioid drug. Start Date: 11/14/24 Status: Ordered Medication Dispense Status: Completed Total Allowed Fills: 1 Fills Dispensed: 0 ezetimibe 10 mg oral tablet 90 each, 0 Refill(s), TAKE 1 TABLET (10 MG) BY MOUTH ONCE PER DAY., 0 Refills, 10/13/24 8:19:00 AM EDT, Partial fill upon patient request if the prescription is for a schedule II opioid drug. Start Date: 10/13/24 Status: Ordered Medication Dispense Status: Completed Total Allowed Fills: 1 Fills Dispensed: 0 Flexeril 10 mg oral tablet 1 tablet, By Mouth, 2 times a day, PRN spasm, # 30 tablet, 0 Refills, Soft Stop, 12/31/08 2:42:42 PMEDT Start Date: 12/31/08 Stop Date: 01/30/09 Status: Ordered Medication Dispense Status: Completed Quantity: 30.0 Unit: tablet Total Allowed Fills: 1 Fills Dispensed: 0 isosorbide mononitrate 60 mg oral tablet, extended release 60 mg, 1, tablet, By Mouth, Daily in AM, # 90 tablet, Refills 0, Tot. Refills 0, Maintenance, 12/09/24 9:36:00 AM EDT, Route to Pharmacy Electronically, [facility]/pharmacy #[id number], Partial fill upon patient request if the prescription is for a schedule II opioid drug., 160, cm, 12/09/24 8:24:00 EDT, Height, 69.1, kg, 11/14/24 16:15:00 EDT, Dry Weight Start Date: 12/09/24 Status: Ordered Medication Dispense Status: Completed Quantity: 90.0 Unit: tablet Total Allowed Fills: 1 Fills Dispensed: 0 metFORMIN 1000 mg oral tablet TOME MAXIMINO TABLETA (1000 MG) POR V A ORAL CON EL DESAYUNO AND WITH PLAYGROUND WORKER Start Date: 01/22/25 Status: Ordered Medication Dispense Status: Completed Total Allowed Fills: 1 Fills Dispensed: 0 metoprolol 100 mg oral tablet, extended release 100 mg, 1, tablet, By Mouth, Daily, # 30 tablet, Refills 0, Tot. Refills 0, Maintenance, 01/08/25 1:30:00 PM EDT, Route to Pharmacy Electronically, [facility]/pharmacy #[id number], Partial fill upon patient request if the prescription is for a schedule II opioid drug., 160, cm, 12/09/24 8:24:00 EDT, Height, 69.1, kg, 11/14/24 16:15:00 EDT, Dry Weight Start Date: 01/08/25 Status: Ordered Medication Dispense Status: Completed Quantity: 30.0 Unit: tablet Total Allowed Fills: 1 Fills Dispensed: 0 naloxone 4 mg/0.1 mL nasal spray 1 sprays = 4 mg, PLEASE SEE ATTACHED FOR DETAILED DIRECTIONS Start Date: 07/03/23 Status: Ordered Medication Dispense Status: Completed Total Allowed Fills: 1 Fills Dispensed: 0 nicotine 21 mg/24 hr transdermal film, extended release PLACE 1 PATCH ON THE SKIN 1 TIME EACH DAY AT THE SAME TIME. Start Date: 01/22/25 Status: Ordered Medication Dispense Status: Completed Total Allowed Fills: 1 Fills Dispensed: 0 omeprazole 40 mg oral enteric coated capsule TAKE 1 CAPSULE BY MOUTH EVERY DAY BEFORE BREAKFAST. DO NOT BREAK, CRUSH, DISSOLVE OR CHEW. Start Date: 01/22/25 Status: Ordered Medication Dispense Status: Completed Total Allowed Fills: 1 Fills Dispensed: 0 Plavix 75 mg oral tablet 300 mg, 4, tablet, By Mouth, Once, please provide icelandic instructions Start the 75mg daily dose the next day after this loading dose, # 4 tablet, Refills 0, Tot. Refills 0, Soft Stop, 01/12/25 10:35:00 AM EDT, Route to Pharmacy Electronically, [facility]/pharmacy #[id number], Partial fill upon patient request if the prescription is for a schedule II opioid drug., 160, cm, 12/09/24 8:24:00 EDT, Height, 69.1, kg, 11/14/24 16:15:00 EDT, Dry Weight Start Date: 01/12/25 Status: Ordered Medication Dispense Status: Completed Quantity: 4.0 Unit: tablet Total Allowed Fills: 1 Fills Dispensed: 0 Plavix 75 mg oral tablet 75 mg, 1, tablet, By Mouth, Daily, # 90 tablet, Refills 2, Tot. Refills 2, Maintenance, 01/12/25 10:35:00 AM EDT, Route to Pharmacy Electronically, [facility]/pharmacy #[id number], Partial fill upon patient request if the prescription is for a schedule II opioid drug., 160, cm, 12/09/24 8:24:00 EDT, Height, 69.1, kg, 11/14/24 16:15:00 EDT, Dry Weight Start Date: 01/12/25 Stop Date: 10/09/25 Status: Ordered Medication Dispense Status: Completed Quantity: 90.0 Unit: tablet Total Allowed Fills: 3 Fills Dispensed: 0 ranolazine 500 mg oral tablet, extended release 1 tablet = 500 mg, By Mouth, 2 times a day, # 180 tablet, 0 Refills, Maintenance, 12/09/24 9:37:00 AMEDT, ER Tablet, [facility]/pharmacy #[id number], Partial fill upon patient request if the prescription is for a schedule II opioid drug., 160, cm, 12/09/24 8:24:00 EDT, Height, 69.1, kg, 11/14/24 16:15:00 EDT, Dry Weight Start Date: 12/09/24 Status: Ordered Medication Dispense Status: Completed Quantity: 180.0 Unit: tablet Total Allowed Fills: 1 Fills Dispensed: 0 sertraline 100 mg oral tablet 1 tablet = 100 mg, TAKE 1 TABLET BY MOUTH ONCE DAILY Start Date: 01/22/25 Status: Ordered Medication Dispense Status: Completed Total Allowed Fills: 1 Fills Dispensed: 0 Suboxone 8 mg-2 mg Sublingual Film Sublingual, Daily, 0 Refills, Maintenance, 02/18/24 12:54:00 PM EST, Partial fill upon patient request if the prescription is for a schedule II opioid drug. Start Date: 02/18/24 Status: Ordered Medication Dispense Status: Completed Total Allowed Fills: 1 Fills Dispensed: 0 terazosin 5 mg oral capsule 60 each, 0 Refill(s), TOME 2 C PSULAS POR V A ORAL AL ACOSTARSE FOR 30 DAYS, Refills 0, 10/13/24 8:19:00 AM EDT, Partial fill upon patient request if the prescription is for a schedule II opioid drug. Start Date: 10/13/24 Status: Ordered Medication Dispense Status: Completed Total Allowed Fills: 1 Fills Dispensed: 0 Problem List Condition Confirmation Course Effective Dates Status Health St atus Informant Back pain Confirmed Active BPH (benign prostatic hyperplasia) Confirmed Active CAD (coronary artery disease) Confirmed Active Fibromyalgia Confirmed Active Helicobacter positive gastritis Confirmed 03/03/18 Active HTN (hypertension) Confirmed Active Claudication of lower extremity Confirmed Active Cancer of left kidney excluding renal pelvis Confirmed Active Myocardial infarction Confirmed Active PAD (peripheral artery disease) Confirmed Active DM2 (diabetes mellitus, type 2) Confirmed Active Social History Social History Type Response Smoking Status Former smoker, quit more than 30 days ago; Other: Pt quit 10/29/2024; entered on: 12/02/24 Sex Sex Representation Male (finding) Procedure * Event Display: Cardiology Office Note, Non-BH Authored Date: Patient Care team information Care Team Personnel Name: Paula Austin RN Position: [facility] RN Member Role: Primary Care Nurse Name: Yu Taylor RN Position: [facility] RN Member Role: Primary Care Nurse Name: Debbie Garcia RN Position: S RN Member Role: Primary Care Nurse Name: Chiquita Green RN Position: [facility] RN Member Role: Primary Care Nurse Name: Alo Villar RN Position: [facility] SN RN Member Role: Primary Care Nurse Name: Isacc Wood MD Position: [facility] Outreach Member Role: PCP Address: [address] [place] [address] Telecom: Name: Chinyere Hameed RN Position: [facility] ED RN W/OE and Tasks Member Role: Primary Care Nurse Care Team Related Persons Name: MAKENNA BRYANT Name: SELAM VANCE Insurance Providers Guarantor name: JORGITO NAVARROZ BARAJAS Health Plan Information #: 1 Payer: MEDICARE B Payer Identifier: Member Number: [id number] Group Number: Subscriber Identifier: Relationship to Subscriber: self Coverage Type: NA Coverage Verification Date: Telecom: Address: Health Plan Information #: 2 Payer: [id number] Payer Identifier: NA Member Number: [id number] Group Number: [id number] Subscriber Identifier: Relationship to Subscriber: self Coverage Type: NA Coverage Verification Date: Telecom: NA Address: Health Plan Information #: 3 Payer: [employer] Payer Identifier: Member Number: [id number] Group Number: Subscriber Identifier: Relationship to Subscriber: self Coverage Type: MEDICAID Coverage Verification Date: Telecom: Address:
== END 2025-02-24 09:12 | disposition home or self-care (01) ==
LOC: HO.LAB 09:11
PROVIDERS: PCP Internal Medicine Geriatric Medicine; Visit Provider Nurse Practitioner Family
DX: C64.2 Malignant neoplasm of left kidney, except renal pelvis (principal); N28.1 Cyst of kidney, acquired; R31.29 Other microscopic hematuria; R33.9 Retention of urine, unspecified; R39.15 Urgency of urination; Z13.89 Encounter for screening for other disorder; Z79.899 Other long term (current) drug therapy
CPT/HCPCS: 51798; 81003; 88112; 99212

== ENCOUNTER 2025-02-24 09:11 | Outpatient (AMB) | payer MEDICARE, SELFPAY ==
--- NOTE | 2025-02-24 09:14 | A.OFFVIS_ITS ---
Intake Visit Reasons: Imaging Follow Up Intake Note: Patient is present for IMAGING F/U Urology Medication:TERAZOSIN,BETHANECHOLE CHLORIDE,VITAMIN B12 Antibiotic Allergy:NONE Blood Thinner:NONE TODAYS' PVR:177ML'S Mortar Carrier Required: Yes Mortar Carrier Name: Huseyin [id number] Allergies No Known Allergies (No Known Allergies*) Allergy (Verified 02/24/25 09:21) Medication List - Last Reconciled 02/24/25 by Elke Higginbotham CYANIDE POT TENDER- amlodipine 5 mg PO DAILY atorvastatin 80 mg PO DAILY bethanechol chloride 50 mg PO BID buprenorphine-naloxone 8-2 mg 1 film sublingual TID clopidogrel 75 mg PO DAILY cyclobenzaprine 10 mg PO BID PRN ezetimibe 10 mg PO DAILY isosorbide mononitrate ER 60 mg PO DAILY lorazepam 0.5 mg PO DAILY PRN metformin 500 mg PO BID metoprolol succinate ER 100 mg PO DAILY nicotine 1 patch topical ONCE ranolazine ER 500 mg PO BID sertraline mg PO telmisartan 80 mg PO DAILY terazosin 10 mg (2 x 5 mg) PO BEDTIME HPI Comments Details: Vernon is a 64-year-old male patient of Dr. Wood. He has a past medical history of ID, hypertension, fibromyalgia, coronary artery disease and cancer of left kidney. He presents to the office today for follow-up of his incomplete bladder emptying/urinary retention and left-sided renal cancer. In discussion with the patient today he reports compliance with bethanechol and terazosin as prescribed. He does continue to perform CIC 2 times per day typically at 10:00 in 22:00. He does report typically when he performed CIC he will empty anywhere between 300-500 cc of yellow urine. He does have a previous history of left- sided renal cell carcinoma and previously followed up with Dr. Raymond at [facility] and underwent cryotherapy. During last office visit medical release form was signed and I was able to obtain previous urological records. Records are as follows: CT abdomen with IV contrast 03/19/2021: Radiology report notes most recent pre viously ablated left renal lesion in the posterior aspect demonstrates an interval decrease in size when compared to previous MR 1.1 cm indeterminate cystic lesion in the posterior aspect of the right kidney may be a complex cysts. No enhancement on recent MRI. The lesion was increased in size when compared to 2018. There are too small to characterize low attenuation foci in the kidneys which have increased in number and size when compared to the CT from 2018. MRI 03/30/2020: Diagnostic imaging report notes complex 3.4 cm posterior interpolar left cystic renal mass. Increased from 3 cm on 04/2019, containing an enlarging enhancing nodule with restricted diffusion. 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 Scrotal ultrasound: 11/17/2018 normal testes, small right epididymal cyst. CT abdomen without contrast and with IV contrast 09/25/2017: There is an enhancing mass in the left kidney suspicious for malignancy. The prostate is enlarged and projects into the bladder lumen. The wall of the bladder is diffusely thickened. Small left hydrocele in the left scrotum. Retroperitoneal ultrasound: 08/2017: No evidence of hydronephrosis, and exophytic hyperechoic mass in the left kidney interpolar region is indeterminate recommending CT or MRI renal mass protocol per radiology report. The urinary bladder is markedly distended despite presence of a Weller catheter. 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 This lesion was ablated using intermittent CT fluoroscopy guidance a 1.7 mm endo Care cryoablation probe was advanced into the left lower aspect of the lesion and cryoablation was performed using a 01/13 01/10 protocol Renal ultrasound 11/30 notes left renal indeterminate solid cystic mass in the interpolar region at the site of prior cryoablation per radiology report recommending MRI/CT renal mass protocol. Probable right renal angiolipoma 8 mm in the upper interpolar region. Bilateral renal cortical cysts. No hydronephrosis or renal calculi noted. Chest CT with and without IV contrast 01/30 notes no evidence of metastatic disease in the chest there is a 1.7 cm nodule arising from the upper pole of the right kidney. We did discussed obtaining CT renal mass protocol as well as performing in office cystoscopy given patient with a longstanding history of incomplete bladder emptying and previous imaging did note an enlarged prostate. PSA 07/31 0.7. We discussed at length potential causes and further treatment options of incomplete bladder emptying/urinary retention. He will continue with performing CIC 2 times per day. He denies urinary urgency, urinary frequency, incontinence, nocturia, dysuria, foul smelling flank pain, fever, and or chills. He does report having experienced a bout of gross hematuria a long time ago however does not recall how long ago this was. He does report a 21 year history of nicotine dependence however recently quit in November of this year. He otherwise offers no other issues or concerns at this time. PVR today 177 mL he was able to perform CIC and obtain urinalysis. Urinalysis results reviewed with the patient today. In review of patient's chart it appears scanned MRI 12/29 noted expected treatment changes into left interpolar ablation cavities without evidence of reoccurrence. Several bilateral renal cysts again noted. He otherwise offers no other issues or concerns at this time [facility] Medical History Abnormal colonoscopy (~03/03/18) Myocardial infarction High blood pressure Fibromyalgia Cancer of left kidney CAD (coronary artery disease) Surgical History History of back surgery Family History Mother CAD (coronary artery disease) Social History Household Members: Family and None Patient Tobacco Use Status: Current everyday Tobacco user service: No Current occupational status: unemployed and retired Review of Systems Const All systems reviewed & are unremarkable except as noted in HPI and below Physical Exam Const General: cooperative, healthy appearing, comfortable, no acute distress, well developed, alert and awake Nutritional Appearance: overweight Orientation/consciousness: patient oriented x3 Limitations: language barrier HEENT Head: Yes normal to inspection, Yes normocephalic and Yes atraumatic Ears: hearing grossly normal bilaterally Eyes General: appearance normal, both eyes and all related structures Neck Neck: Yes normal visual inspection and Yes trachea midline Chest Chest palpation & inspection: normal inspection of the chest Resp Effort & Inspection: normal respiratory effort and able to speak in complete sentences Cardio Rate: regular rate GI Inspection: Yes normal to inspection General: Yes no CVA tenderness Back/Spine/Pelvis Back: no CVA tenderness Skin General skin exam: no rashes or lesions noted Neuro General: patient oriented x3 Extrem General: Yes normal to inspection Psych Appearance: grossly normal and well kempt Mental Status: mental status grossly normal Speech and movement: Normal speech and movement present and Clear speech present Affect: normal affect Attitude: cooperative Thought process: Normal thought process present Thought content: Normal thought content present Insight: Fair insight present (Psych) Judgement: Fair judgement present (Psych) Office Procedures Post Void Residual Post Residual Void Post Void Residual (PVR): 177 [id number] Void Residual by ultrasound Results AMB Urinalysis, Automated UA Leukoctes 0 Betsy/uL Last Edit by Wendy Foster CCM on 02/24/25 10:02 UA Nitrite Negative Last Edit by Wendy Foster CCM on 02/24/25 10:02 UA Urobilinogen 0.2 mg/dL Last Edit by Wendy Foster CCM on 02/24/25 10:0 2 UA Protein 15 mg/dL Last Edit by Wendy Foster [facility] on 02/24/25 10:02 UA pH 6.0 Last Edit by Wendy Foster CCM on 02/24/25 10:02 UA Blood 0 Preston/uL Last Edit by Wendy Foster CCM on 02/24/25 10:02 UA Specific Browning 1.015 Last Edit by Wendy Foster CCM on 02/24/25 10: 02 UA Ketone Negative Last Edit by Wendy Foster CCM on 02/24/25 10:02 UA Bilirubin 0 mg/dL Last Edit by Wendy Foster [facility] on 02/24/25 10:02 UA Glucose 0 mg/dL Last Edit by Wendy Foster [facility] on 02/24/25 10:02 Results Reviewed Results Reviewed: Laboratory Last Values Urine pH (Auto) 6.0 02/24/25 10:02 Specific Browning (Auto) 1.015 02/24/25 10:02 Urine Protein (Auto) 15 mg/dL 02/24/25 10:02 Glucose (UA)(Auto) 0 mg/dL 02/24/25 10:02 Urine Ketones (Auto) Negative 02/24/25 10:02 Urine Blood (Auto) 0 Preston/uL 02/24/25 10:02 Urine Nitrite (Auto) Negative 02/24/25 10:02 Urine Bilirubin (Auto) 0 mg/dL 02/24/25 10:02 Urine Urobilinogen (Auto) 0.2 mg/dL 02/24/25 10:02 Leukocyte Esterase (Auto) 0 Betsy/uL 02/24/25 10:02 Date of Service: 01/07/25 Procedure(s): CT chest wo/w IV con Findings: Normal heart size. Severe coronary artery calcification. The visualized thyroid and mediastinum are unremarkable. No consolidation or pleural effusion. No suspicious pulmonary nodules. There is a 1.7 cm nodule arising from the upper pole of the right kidney. Density estimated at 41 Hounsfield units precontrast and 55 Hounsfield units postcontrast. There are multiple kidney cysts. The bones are intact. IMPRESSION: 1. No evidence of metastatic disease to the chest. 2. There is a 1.7 cm nodule arising from the upper pole of the right kidney. This may represent a solid nodule. Recommend further evaluation with ultrasound. Assessment & Plan Assessment & Plan (1) Incomplete bladder emptying: Code(s): R33.9 - Retention of urine, unspecified Category: Medical (2) Urinary retention: Code(s): R33.9 - Retention of urine, unspecified Category: Medical (3) Cancer of left kidney: Code(s): C64.2 - Malignant neoplasm of left kidney, except renal pelvis Category: Medical (4) Renal cyst: Code(s): N28.1 - Cyst of kidney, acquired Category: Medical Plan Office urinalysis results reviewed with the patient today; will send for urine cytology. Will obtain CT renal mass protocol for further assessment evaluation. Will obtain BUN and creatinine for further assessment evaluation. All questions were answered. Most recent CT chest results reviewed with the patient today; as noted above. Continue bethanechol and terazosin as prescribed. Previous urological records were reviewed as noted and trended above. Follow-up next available in office cystoscopy with imaging and labs to be completed prior; or sooner with any issues, concerns, and or questions. Orders: Orders AMB Urinalysis Automated Today Z13.9 - Encounter for screening, unspecified Urine Cytology Today R31.29 - Other microscopic hematuria CT abdomen pelvis wo/w IV con Today C64.2 - Malignant neoplasm of left kidney, except renal pelvis, N28.1 - Cyst of kidney, acquired Blood Urea Nitrogen Today R39.15 - Urgency of urination Creatinine Today R39.15 - Urgency of urination Patient Instructions: The patient had an opportunity to ask questions regarding the treatment plan. All questions were answered. Physical exam, labs, and imaging were discussed and reviewed in detail. As well as risks, benefits, and discussion of treatment choices. No major barriers to understanding were identified. The patient expressed understanding and agreement with the above treatment plan. The patient was made aware they should contact our office by phone for worsening of their current condition, the appearance of new symptoms, or with any questions or concerns. Compliance is encouraged with any medications and follow up testing that is ordered. It is a privilege to be allowed the opportunity to participate in? your urological care.? Again, if you have any questions or concerns If you have any questions or concerns please do not hesitate to contact me. The office is [phone]. This note is constructed using voice recognition software. While every effort has been made to ensure accuracy offal worker errors may have been included. Yours sincerely, MELVI Beard Coding Level of Care Code Est Pt Level 4 (38391) Complex EM visit Add On G2211 Diagnoses Incomplete bladder emptying R33.9 Urinary retention R33.9 Cancer of left kidney C64.2 Renal cyst N28.1 CPT Codes Post Residual Void - PVR CPT Code: 09753-Fpwm Void Residual by ultrasound ([id number])
--- OUTSIDE RECORDS SUMMARY | 2025-02-24 17:06 | XMS_ITS | Encounter Summary ---
Author Organization [employer] Address [address] [place] [address] Care Team Providers Care Sales Coach Name Role Phone Name, Isacc LOJA Primary Care Provider [phone] Encounter Details Date Type Department Care Team (Late st Contact Info) Description 11/12/2024 Orders Only [facility] [address] [place] [address] Elizabeth Munson, RN Social History Tobacco Use [...] Care Team (Late st Contact Info) Description 02/26/2025 9:00 AM EST Office Visit [facility] [address] [place] [phone] Grant Ashley MD [address] [place] [phone] 04/12/2025 3:00 PM EST Office Visit [address] [address] documented as of this encounter Visit Diagnoses Not on filedocumented in this encounter Additional Health Concerns Assessment Noted Time PHQ-9 Depression Total Score: 0 09/19/19 25 9:22 AM EDT documented as of this encounter Care Teams Sales Coach Relationship Specialty Start Date End Date Name, MD Isacc [address] [place] [phone] PCP - General Family Medicine 11/03/18 documented as of this encounter
--- OUTSIDE RECORDS SUMMARY | 2025-02-24 17:06 | XMS_ITS | Encounter Summary ---
Author Organization [employer] Address [address] [facility] [address] [place] [address] Care Team Providers Care Insurance Sales Executive Name Role Phone Name, Isacc LOJA Primary Care Provider [phone] Reason for Visit * Reason Comments Med Refill Encounter Details Date Type Department Care Team ([facility] st Contact Info) Description 05/22/2023 Refill [facility]INE [address] [place], [place] [phone] Name, MD Isacc [address] [place] [address] Social History Tobacco Use Types Packs/Day Years [...] Description 02/26/2025 9:00 AM EST Office Visit [facility] [address] [place] [phone] Grant Ashley MD [address] [place] [address] 04/12/2025 3:00 PM EST Office Visit [address] [address] documented as of this encounter Visit Diagnoses Not on filedocumented in this encounter Additional Health Concerns Assessment Noted Time PHQ-9 Depression Total Score: 6 03/21/20 22 10:54 AM EST documented as of this encounter Care Teams Insurance Sales Executive Relationship Specialty Start Date End Date Name, MD Isacc [address] [place] [address] PCP - General Family Medicine 11/03/18 documented as of this encounter
--- OUTSIDE RECORDS SUMMARY | 2025-02-24 17:06 | XMS_ITS | Encounter Summary ---
Author Organization [employer] Address [address] [facility] [address] [place] [address] Care Team Providers Care Motor Grader Rough Grade Name Role Phone Name, Isacc LOJA Primary Care Provider [phone] Reason for Visit * Reason Comments Med Refill Encounter Details Date Type Department Care Team ([facility] st Contact Info) Description 03/09/2023 Refill [facility] [address] [place], [place] [phone] Name, MD Isacc [address] [place] [address] Seasonal allergic rhinitis, unspecified trigger Social History [...] Description 02/26/2025 9:00 AM EST Office Visit [facility] [address] [place] [phone] Grant Ashley MD [address] [place] [phone] 04/12/2025 3:00 PM EST Office Visit [facility] [address] [place] [address] documented as of this encounter Visit Diagnoses Diagnosis Seasonal allergic rhinitis, unspecified trigger Chronic low back pain, unspecified back pain laterality, unspecified whether sciatica present- Primary documented in this encounter Additional Health Concerns Assessment Noted Time PHQ-9 Depression Total Score: 6 03/21/20 22 10:54 AM EST documented as of this encounter Care Teams Motor Grader Rough Grade Relationship Specialty Start Date End Date Name, MD Isacc [address] [place] [address] PCP - General Family Medicine 11/03/18 documented as of this encounter
--- OUTSIDE RECORDS SUMMARY | 2025-02-24 17:06 | XMS_ITS | Encounter Summary ---
Author Organization [employer] Address [address] [facility] [address] [place] [address] Care Team Providers Care Jewel Cupping Machine Operator Name Role Phone Name, Isacc LOJA Primary Care Provider [phone] Reason for Visit * Reason Onset Date Comments Pain med, suboxone, CRS Dept 10/28/2023 Encounter Details Date Type Department Care Team (Late st Contact Info) Description 10/28/2023 Telephone [facility] MED[facility]INE [address] [place] [address] Name, MD Isacc [address] [place], [place] [phone] Pain med, suboxone, CRS Dept Social History [...] like patient had been receiving. TC via P/I#[id number], reviewed with patient that CRS department has [...] 5-325 MG tablet To be sent to: [facility]/pharmacy #[id number] - [place], [place] - [facility] leaves on vacation tomorrow to [place] 10/29/23. documented in this encounter Plan of Treatment Upcoming Encounters Date Type Department Care Team ([facility] st Contact Info) Description 02/26/2025 9:00 AM EST Office Visit [facility] [address] [place] [address] Grant Ashley MD [address] [place] [address] 04/12/2025 3:00 PM EST Office Visit [facility] [address] [place] [address] documented as of this encounter Visit Diagnoses Not on filedocumented in this encounter Additional Health Concerns Assessment Noted Time PHQ-9 Depression Total Score: 0 08/08/19 24 9:27 AM EDT documented as of this encounter Care Teams Jewel Cupping Machine Operator Relationship Specialty Start Date End Date Name, MD Isacc [address] [place] [address] PCP - General Family Medicine 11/03/18 documented as of this encounter
--- OUTSIDE RECORDS SUMMARY | 2025-02-24 17:06 | XMS_ITS | Encounter Summary ---
Author Organization [employer] Address [address] [facility] 7[address] [place] [address] Care Team Providers Care Product Tester Name Role Phone Name, Isacc LOJA Primary Care Provider [phone] Reason for Visit * Reason Comments Med Refill Encounter Details Date Type Department Care Team ([facility] st Contact Info) Description 07/17/[address] [facility] MEDICINE [address] [place], [place] [phone] Grant Ashley MD [address] [place], [place] [phone] Chronic low back pain, unspecified back pain [...] Description 02/26/2025 9:00 AM EST Office Visit [address] [address] Grant Ashley MD [address] [place] [address] 04/12/2025 3:00 PM EST Office Visit [address] [address] documented as of this encounter Visit Diagnoses Diagnosis Chronic low back pain, unspecified back pain laterality, unspecified whether sciatica present Chronic low back pain, unspecified back pain laterality, unspecified whether sciatica present- Primary documented in this encounter Additional Health Concerns Assessment Noted Time PHQ-9 Depression Total Score: 0 08/08/19 9:27 AM EDT documented as of this encounter Care Teams Product Tester Relationship Specialty Start Date End Date Name, MD Isacc [address] [place] [address] PCP - General Family Medicine 11/03/18 documented as of this encounter
--- OUTSIDE RECORDS SUMMARY | 2025-02-24 17:06 | XMS_ITS | Clinical Summary ---
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 Track Vehicle Mechanic Name Role Phone Name, Isacc LOJA Primary Care Provider [phone] Allergies Active Allergy Reactions Criticality Noted Date Comments Levofloxacin 02/26/2019 Other reaction(s): Rash, Rash Medications albuterol 108 (90 Base) MCG/ACT inhaler inhale 2 puff by inhalation route every 4 - 6 hours as needed 1 Active ascorbic acid (Vitamin C) 500 MG tablet Take one tablet by mouth daily 9 Active aspirin 81 MG EC tablet take 1 tablet by oral route every day 9 Active multivitamin (Theragran) tablet take 1 tablet by oral route every day with food 9 Active Alcohol Swabs (Alcohol Prep) pads Use to check fasting in morning and as needed Active Blood Glucose Monitoring Suppl (FreeStyle Lite) w/Device kit Use to check sugar fasting every morning and as needed Active Spacer/Aero-Hol ding Chambers (OptiChamber Fannie) device Optichamber fannie [facility] spacer Q4h prn Active FreeStyle lancets 1 each by Other route if needed. 28 gauge lancets Use 1 lancet by To Skin route every morning fasting and as needed Active hydrOXYzine HCl (Atarax) 25 MG tabletIndicatio ns:Seasonal allergic rhinitis, unspecified trigger TOME MAXIMINO TABLETA DOS VECES AL MARILYN CUANDO SEA NECESARIO 180 tablet 3 Active glucose blood (FREESTYLE LITE) test strip Use to check sugar fasting every morning and as needed 100 each 11 4 Active naloxone (Narcan) 4 mg/0.1 mL nasal sprayIndication s:Chronic low back pain, unspecified back pain laterality, unspecified whether sciatica present ADMINISTER 1 SPRAY INTO AFFECTED NOSTRIL(S) IF NEEDED FOR OPIOID REVERSAL. MAY REPEAT EVERY 2-3 MINUTES IF NEEDED, ALTERNATING NOSTRILS, UNTIL MEDICAL ASSISTANCE BECOMES AVAILABLE. 2 each 3 4 Active fluticasone (Flonase) 50 MCG/ACT nasal spray Administer 1 spray into each nostril Once per day for 10 days. 16 g 4 Active docusate sodium (Colace) 100 MG capsule 1 or 2 capsules PO BID prn constipation (stool softener). 120 capsule 3 4 Active sennosides (Senokot) 8.6 MG tablet 1 or 2 tablet PO BID prn constipation (intestinal stimulant). 120 tablet 3 4 Active polyethylene glycol, PEG, 3350 (MiraLax) 17 GM/SCOOP powder 17 gms (1 capful) in 8 ounces of liquids once daily as needed for constipation. 510 g 1 4 Active atorvastatin (Lipitor) 80 MG tablet TAKE 1 TABLET BY MOUTH EVERY DAY 90 tablet 3 5 Active ezetimibe (Zetia) 10 MG tablet Take 1 tablet (10 mg) by mouth Once per day. 30 tablet 11 5 026 Active metFORMIN (Glucophage) 1000 MG tablet Take 1 tablet (1,000 mg) by mouth with breakfast and with evening meal. 60 tablet 11 5 026 Active amLODIPine (Norvasc) 5 MG tablet Take 1 tablet by mouth Once per day. 5 Active terazosin (Hytrin) 5 MG capsule Take 2 capsules by mouth at bedtime. 5 Active ticagrelor (Brilinta) 90 MG tablet Take 1 tablet by mouth 2 times daily. 5 Active isosorbide mononitrate ER (Imdur) 30 MG 24 hr tablet Take 1 tablet by mouth before breakfast. 5 Active bethanechol (Urecholine) 50 MG tablet Take 50 mg by mouth 2 times daily. 5 Active insulin glargine (Lantus SoloStar) 100 UNIT/ML pen Inject 10 Units under the skin at bedtime. 3 mL 11 5 026 Active pen needle 32G x 4 mm misc Use with insulin pen as directed 100 each 5 Active LORazepam (Ativan) 0.5 MG tablet Take 1 tablet (0.5 mg) by mouth if needed each day for anxiety for up to 14 days. 14 tablet 5 Active Buprenorphine HCl-Naloxone HCl (Suboxone) 8-2 MG SL filmIndications :Chronic low back pain, unspecified back pain laterality, unspecified whether sciatica present Place 1 Film under the tongue 3 times daily. Do not start before January 08, 2025. 84 Film 2 5 025 Active nicotine (Nicoderm, Step 1) 21 MG/24HR patch PLACE 1 PATCH ON THE SKIN 1 TIME EACH DAY AT THE SAME TIME. 28 patch 1 5 Active cyclobenzaprine (Flexeril) 10 MG tablet TAKE 1 TABLET BY MOUTH TWICE DAILY NEEDED FOR BACK MUSCLE SPASM 60 tablet 2 5 Active metoprolol succinate XL (Toprol-XL) 200 MG 24 hr tablet TOME 1 TABLETA POR V A ORAL TODOS LOS D 5 Active sertraline (Zoloft) 100 MG tabletIndicatio ns:Anxiety Take 1 tablet (100 mg) by mouth Once per day. 30 tablet 11 5 026 Active omeprazole (PriLOSEC) [address] capsule Take 1 capsule (40 mg) by mouth before breakfast. Do not crush or chew. 30 capsule 5 026 Active lactulose (Chronulac) 10 GM/15ML solution Take 15 mL (10 g) by mouth 2 times daily. 473 mL 2 4 025 Active Problems Patient Care Coordination No te Formatting of this note migh t be different from the original. C3/CM Alma Rosa Milian RN Problem Noted Date Diagnosed Date Anxiety 01/05/2025 COVID-19 virus infection 12/23/2023 Assessment & Plan (12/23/2023 2:56 PM EDT): Rx Paxlovid x 5 days, [employer] interactions module checked, Advised to call if [...] Encounters Date Type Department Care Team Description 02/24/2025 Telephone [facility] [address] [place] [address] Isacc Wood MD Medicare Annual Wellness Visit Initial (AWV shcheduled) 01/07/2025 Orders Only [facility] External Provider, [facility] 01/07/2025 Results Follow-Up [facility] [address] [place] [address] Isacc Wood MD XR CERVICAL SPINE 3V 01/05/2025 3:45 PM EDT Office Visit [facility] [address] [place] [address] Isacc Wood MD Hypertension, unspecified type (Primary Dx); Anxiety; Neck pain without injury; Heartburn; Dyspnea, unspecified type; Encounter for immunization 01/05/2025 Travel 01/04/2025 Travel 01/02/2025 Refill [facility] [address] [place] [address] Isacc Wood MD 12/21/2024 11:15 AM EDT Telemedicine [facility] [address] [place], [place] [phone] Sadia Leslie, DIANA Hypertension, unspecified type 12/21/2024 Travel 12/15/2024 Refill [facility] [address] [place] [address] Anita Trujillo MD 12/11/2024 9:00 AM EDT Office Visit [facility] [address] [place] [address] Grant Ashley MD Chronic low back pain, unspecified back pain laterality, unspecified whether sciatica present (Primary Dx) 12/11/2024 Travel 12/09/2024 Refill [facility] [address] [place] [address] Yvrose Hussein MD 12/08/2024 Refill [facility] [address] [place] [address] Nurys Toribio RN Chronic low back pain, unspecified back pain laterality, unspecified whether sciatica present 12/04/2024 Travel 12/04/2024 Refill [facility] [address] [place] [address] Grant Ashley MD Chronic low back pain, unspecified back pain laterality, unspecified whether sciatica present 12/01/2024 Orders Only [facility] External Provider, [facility] from Last 3 Months Immunizations Immunization Administration [...] Description 02/26/2025 9:00 AM EST Office Visit [facility] [address] [place] [address] Grant Ashley MD [address] [place] [address] 04/12/2025 3:00 PM EST Office Visit [address] [address] Health Maintenance Due Date Last Done Comments CT Colonography 1960 FIT DNA/Cologuard 1960 FIT 1960 FOBT 1960 HIV Screening 1960 Sigmoidoscopy 1960 Eye Exam 1970 Hepatitis C Screening 1978 RSV Patients and Patients Aged 60 years or older (1 - Risk 50-74 years 1-dose series) 2010 Diabetes: Foot Exam 08/07/2024 08/08/2023, 08/08/2023, 08/08/2023, Additional history exists COVID-19 Vaccine ( season) 2024 02/20/2022, 02/20/2022, 11/02/2021, Additional history exists Diabetes: Hemoglobin A1C 05/26/2025 0818/2 025, 06/18/2024, 11/13/2023, Additional history exists Alcohol/Substance Use Screening 09/18/2025 09/18/2024 Depression Screening 09/18/2025 09/18/2024, 09/19/19 SDOH Screening 09/18/2025 09/18/2024 Disability Screening 12/10/2025 [...] on patient's age to complete this topic Goals Goal Patient Goal Type Associated Problems Recent Progress Patient-Stated? Author Help patients manage their type 2 diabetes Care Plan Help patients manage their type 2 diabetes No rGant Ashley MD Weekly blood pressure task Care Plan Weekly blood pressure task No Grant Ashley MD Help patients manage their type 2 diabetes Care Plan Help patients manage their type 2 diabetes No Grant Ashley MD Patient has chronic kidney disease Care Plan Patient has chronic kidney disease No Grant Ashley MD Weekly blood pressure task Care Plan Weekly blood pressure task No Grant Ashley MD Patient has chronic kidney disease Care Plan Patient has chronic kidney disease No Grant Ashley MD Weekly blood pressure task Care Plan Weekly blood pressure task No [place] Weekly blood pressure task Care Plan Weekly blood pressure task No [place] Patient has chronic kidney disease Care Plan Patient has chronic kidney disease No Rena Sho Patient has chronic kidney disease Care Plan Patient has chronic kidney disease No Sho Chase Procedures Procedure Name Priority Date/Time Associated Diagnosis Comments CT CHEST W AND WO CONTRAST Routine 01/08/2025 1:28 PM EDT XR CERVICAL SPINE 3V Routine 01/06/2025 10:51 [...] without long-term current use of insulin (CMS/HCC) COLONOSCOPY Routine 03/13/2024 2:44 PM EST from Last 3 Months or Most Recently Relevant to Health Maintenance Results * CT Chest w/ and w/o Contrast (01/08/2025 1:28 PM EDT) Anatomical Region Laterality Modality Body, Chest Computed Tomogra phy 01/08/2025 1:28 PM EDT Narrative 01/08/2025 1:29 PM EDT [place] [address] CT Scan Report Signed Patient: Vernon Lewis MR#: [id number] : 1960 Acct:[id number] Age/Sex: 64 / M ADM Date: 01/07/25 Loc: HO.CT Attending Dr: Elke OGDEN Ordering Physician: Elke Higginbotham Date of Service: 01/07/25 Procedure(s): CT chest wo/w IV con Accession Number(s): [id number] cc: Elke Higginbotham; Name,Isacc LOJA Report Number: [id number]: Total DLP = 305.00 mGy-cm Reason for Exam: 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 Severe coronary artery calcification. The visualized thyroid and mediastinum are unremarkable. No consolidation or pleural effusion. No suspicious pulmonary nodules. There is a 1.7 cm nodule arising from the upper pole of the right kidney. Density estimated at 41 Hounsfield units precontrast and 55 Hounsfield units postcontrast. There are multiple kidney cysts. The bones are intact. IMPRESSION: 1. No evidence of metastatic disease to the chest. 2. There is a 1.7 cm nodule arising from the upper pole of the right kidney. This may represent a solid nodule. Recommend further evaluation with ultrasound. This document has been electronically signed by: Osiris Toledo MD on 01/08/2025 13:28:15 Dictated By: Osiris Toledo MD Signed By: <Electronically signed by Osiris Toledo MD in OV> 01/08/25 1329 DD/ 1328 TD/TT: 01/08/25 1328 Smt Technician: Procedure Note Donotuseinterpreter, Image - 01/08/[address] [place] [address] [address] Scan Report Signed Patient: Vernon Lewis LMR#: [id number] : 1Acct:[id number] Age/Sex: 64 / MADM Date: 01/07/25 Loc: HO.CT [facility]ending Dr[facility] Ordering Physician: Elke Higginbotham Date of Service: 01/07/25 Procedure(s): CT chest wo/w IV con Accession Number(s): [id number] [facility]; Name,Isacc LOJA Report Number: [id number]: Total DLP = 305.00 mGy-cm Reason for Exam: C64.2 - Malignant neoplasm of left kidney, except renalpelvis 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 Severe coronary artery calcification. The visualized thyroid and mediastinum are unremarkable. No consolidation or pleural effusion. No suspicious pulmonary nodules. There is a 1.7 cm nodule arising from the upper pole of the right kidney. Density estimated at 41 Hounsfield units precontrast and 55 Hounsfield units postcontrast. There are multiple kidney cysts. The bones are intact. IMPRESSION: 1. No evidence of metastatic disease to the chest. 2. There is a 1.7 cm nodule arising from the upper pole of the right kidney. This may represent a solid nodule. Recommend further evaluation with ultrasound. This document has been electronically signed by: Osiris Toledo MD on 01/08/2025 13:28:15 Dictated By: Osiris Toledo MD Signed By: <Electronically signed by Osiris Toledo MD in OV> 01/08/25 1329 DD/ 1328 TD/TT: 01/08/25 1328 Smt Technician: [facility] External Provider IMG CT PROCEDURES Final Result * XR CERVICAL SPINE 3V (01/06/2025 10:51 AM EDT) Anatomical Region Laterality Modality Abdomen Radiographic Destini ging 01/06/2025 10:5 1 AM EDT Narrative 01/06/2025 10:59 AM EDT [address] [address] XRay Report Signed Patient: Vernon Lewis MR#: [id number] : 1960 Acct:[id number] Age/Sex: 64 / M ADM Date: 01/06/25 Loc: HO.HHCX Attending Dr: Isacc Wood MD Ordering Physician: Isacc Wood MD Date of Service: 01/06/25 Procedure(s): XR cervical spine 3V Accession Number(s): [id number] cc: Isacc Wood MD Reason for Exam: [...] 01/06/25 1057 DD/ 1051 TD/TT: 01/06/25 105 Smt Technician: Procedure Note Donotuseinterpreter, Image - 01/06/[address] [address] XRay Report Signed Patient: Vernon Lewis LMR#: [id number] : 1Acct:[id number] Age/Sex: 64 / MADM Date: 01/06/25 Loc: HO.HHCX Attending Dr: Isacc Wood MD Ordering Physician: Isacc Wood MD Date of Service: 01/06/25 Procedure(s): XR cervical spine 3V Accession Number(s): [id number] cc: Isacc Wood MD Reason for Exam: [...] 01/06/25 1057 DD/ 1051 TD/TT: 01/06/25 1051 Smt Technician: Isacc Wood MD IMG XR PROCEDURES Final Result * (ABNORMAL) Lipid Panel, Standard (01/05/2025 7:59 AM EDT) Triglycerides 78 <150 mg/dL [facility] Comment:Desirable Triglyceri de: less than 150 mg/dLBorderline High Triglyceride 150-199 mg/dLHigh Triglyceride: 200-499 mg/dLVery High Triglyceride: greater than or equal to 5OO mg/dL Cholesterol 116 <200 mg/dL [facility] Comment:Desirable Cholestero l: less than 200 mg/dLBorderline High Cholesterol: 200-239 mg/dLHigh Cholesterol: greater than 239 mg/dL LDL Cholesterol Calculated 63 <100 mg/dL [facility] Comment:Desirable LDL: less than 100 [...] EDT 01/05/2025 7:59 AM EDT us Isacc Name LAB BLOOD ORDERABLES Final Resul t [facility] [address] [place] [phone] * (ABNORMAL) Basic Metabolic Panel (01/05/2025 7:59 AM EDT) Sodium 139 135 - 145 mmol/L [facility] Potassium 4.6 3.3 - 5.1 mmol/L [facility] Chloride 105 96 - 108 mmol/L [facility] Carbon Dioxide 27 22 - 29 mmol/L [facility] Anion Gap 12 12 - 20 [facility] Urea Nitrogen (BUN) 22(H) 9 - 16 mg/dL [facility] Creatinine, Serum 1.02 0.5 - 1.4 mg/dL [facility] Estimated Glomerular Filt Rate >60 [facility] Comment:Chronic Kidney Disea se: Estimated GFR < 60 mL/min/1.40l0Olpgqa Kidney Disease: Estimated GFR < 15 mL/min/1.73m2 Glucose 134(H) 60 - 115 mg/dL [facility] Calcium 9.2 8.4 - 10.2 mg/dL [facility] Blood Venous blood specimen / Unknown 01/05/2025 7:59 AM EDT 01/05/2025 7:59 AM EDT us Isacc Wood MD LAB BLOOD ORDERABLES Final Resul t Performing Organization Address [facility] de Phone Number [facility] [address] [place] [phone] * (ABNORMAL) Albumin, Random Urine W/Creatinine (01/05/2025 7:56 AM EDT) Creatinine, Urine 52.75 mg/dL [facility] Microalbumin Urine 22.0 mg/L H [facility] Microalbum Creatinine Ratio Ur 41.7(H) <30 ug/mg cr [facility] Comment:Albumin/Creatinine R atio Reference Ranges: Normal: < 30 ug/mg creatinine Microalbuminuria: 30 - 300 ug/mg creatinineClinical Albuminuria: > 300 ug/mg creatinine Urine (Urine, Random) 01/05/2025 7:56 AM EDT 01/05/2025 8:47 AM EDT us Isacc Wood MD LAB URINE ORDERABLES Final Resul t Performing Organization Address [facility] de Phone Number [facility] [address] [place] [phone] * US Renal Complete (12/01/2024 4:00 PM EDT) Anatomical Region Laterality Modality Kidney Ultrasound 12/01/2024 4:00 PM EDT Narrative 12/01/2024 4:01 PM EDT [address] [address] Ultrasound Report Signed Patient: Vernon Lewis MR#: [id number] : 1960 Acct:[id number] Age/Sex: 64 / M ADM Date: 12/01/24 Loc: .US Attending Dr: Elke OGDEN Ordering Physician: Elke Higginbotham Date of Service: 12/01/24 Procedure(s): US renal BI Accession Number(s): [id number] cc: Elke Higginbotham [facility]; Name,Isacc LOJA CLINICAL HISTORY: C64.2 - Malignant [...] cystic mass at the interpolar region, per voice network engineer note, this is at the site of [...] 12/01/24 1601 DD/ 1600 TD/TT: 12/01/24 1600 Smt Technician: Procedure Note Donotuseinterpreter, Image - 12/01/2024 [place] [address] Ultrasound Report Signed Patient: Vernon Lewis LMR#: [id number] : 1Acct:[id number] Age/Sex: 64 / MADM Date: 12/01/24 Loc: HO.US Attending Dr: Elke OGDEN Ordering Physician: Elke Higginbotham Date of Service: 12/01/24 Procedure(s): US renal BI Accession Number(s): [id number] cc: Elke Higginbotham; Name,Isacc LOJA CLINICAL HISTORY: [...] cystic mass at the interpolar region, per voice network engineer note, this is at the site of [...] 12/01/24 1601 DD/ 1600 TD/TT: 12/01/24 1600 Smt Technician: [facility] External Provider IMG US PROCEDURES Final Result * (ABNORMAL) POCT HGB A1C (11/23/2024 1:16 PM EDT) Hemoglobin A1C 6.5(A) 4.0 - 5.7 % QC Media Lot # [id number] Lot# Expiration Date 4,727 Blood 11/23/2024 1:1 6 PM EDT Isacc Name POINT OF CARE TEST ENTER/EDIT OR DERABLES Final Result * Colonoscopy (03/13/2024 2:44 PM EST) Anatomical Region Laterality Modality Endoscopy Historical Provider ENDOSCOPY PROCEDURE ORDER LEEANNE Final Result from Last 3 Months or Most Recently Relevant to Health Maintenance Additional Health Concerns Active Problems Noted Date Diagnosed Date Help patients manage their type 2 diabetes 02/23 Weekly blood pressure task 02/23/2025 Help patients manage their type 2 diabetes 02/23 Patient has chronic kidney disease 02/23/2025 Weekly blood pressure task 02/23/2025 Patient has chronic kidney disease 02/23/2025 Weekly blood pressure task 02/24/2025 Weekly blood pressure task 02/24/2025 Patient has chronic kidney disease 02/24/2025 Patient has chronic kidney disease 02/24/2025 Insurance MEDICARE Care Teams Endless Track Vehicle Mechanic Relationship Specialty Start Date End Date Name, MD Isacc [address] [place] [phone] PCP - General Family Medicine 11/03/18
--- OUTSIDE RECORDS SUMMARY | 2025-02-24 17:06 | XMS_ITS | Encounter Summary ---
Author Organization [employer] Address [address] [facility] 7t [place] [address] Care Team Providers Care Cabin Agent Name Role Phone Name, Isacc LOJA Primary Care Provider [phone] Reason for Visit * Reason Comments Med Refill Encounter Details Date Type Department Care Team ([facility] st Contact Info) Description 01/02/2025 Refill [facility] [address] [place], [place] [phone] Name, MD Isacc [address] [place] [address] Social History Tobacco Use Types Packs/Day Years [...] Description 02/26/2025 9:00 AM EST Office Visit [address] [address] Grant Ashley MD [address] [place] [phone] 04/12/2025 3:00 PM EST Office Visit [address] [address] documented as of this encounter Visit Diagnoses Not on filedocumented in this encounter Additional Health Concerns Assessment Noted Time PHQ-9 Depression Total Score: 0 09/19/19 25 9:22 AM EDT documented as of this encounter Care Teams Cabin Agent Relationship Specialty Start Date End Date Name, MD Isacc [address] [place] [phone] PCP - General Family Medicine 11/03/18 documented as of this encounter
--- OUTSIDE RECORDS SUMMARY | 2025-02-24 17:06 | XMS_ITS | Encounter Summary ---
Author Organization [employer] Address [address] [facility] [address] [place] [address] Care Team Providers Care Worm Packer Name Role Phone Name, Isacc LOJA Primary Care Provider [phone] Encounter Details Date Type Department Care Team ([facility] st Contact Info) Description 11/03/2024 Telephone [facility] [address] [place], [place] [phone] Name, MD Isacc [address] [place], [place] [phone] Social History Tobacco Use Types Packs/Day Years [...] Description 02/26/2025 9:00 AM EST Office Visit [address] [address] Grant Ashley MD [address] [place] [phone] 04/12/2025 3:00 PM EST Office Visit [address] [address] documented as of this encounter Visit Diagnoses Not on filedocumented in this encounter Additional Health Concerns Assessment Noted Time PHQ-9 Depression Total Score: 0 09/19/19 25 9:22 AM EDT documented as of this encounter Care Teams Worm Packer Relationship Specialty Start Date End Date Name, MD Isacc [address] [place] [address] PCP - General Family Medicine 11/03/18 documented as of this encounter
--- OUTSIDE RECORDS SUMMARY | 2025-02-24 17:06 | XMS_ITS | Encounter Summary ---
Author Organization [employer] Address [address] [facility] 7t [place] [address] Care Team Providers Care Profile Saw Setup Operator Name Role Phone Name, Isacc LOJA Primary Care Provider [phone] Reason for Visit * Reason Comments Med Refill Encounter Details Date Type Department Care Team ([facility] st Contact Info) Description 02/04/2023 Refill [facility] [address] [place], [place] [phone] Name, MD Isacc [address] [place] [address] Chronic low back pain, unspecified back pain [...] 9:00 AM EST Office Visit [facility] [address] [place] [phone] Grant Ashley MD [address] [place] [phone] 04/12/2025 3:00 PM EST Office Visit [facility] [address] [place] [phone] documented as of this encounter Visit Diagnoses Diagnosis Chronic low back pain, unspecified back pain laterality, unspecified whether sciatica present Chronic low back pain, unspecified back pain laterality, unspecified whether sciatica present- Primary documented in this encounter Additional Health Concerns Assessment Noted Time PHQ-9 Depression Total Score: 6 03/21/20 22 10:54 AM EST documented as of this encounter Care Teams Profile Saw Setup Operator Relationship Specialty Start Date End Date Name, MD Isacc [address] [place] [phone] PCP - General Family Medicine 11/03/18 documented as of this encounter
--- OUTSIDE RECORDS SUMMARY | 2025-02-24 17:06 | XMS_ITS | Encounter Summary ---
Author Organization [employer] Address [address] 7t [place] [address] Care Team Providers Care Cone Machine Feeder Name Role Phone Name, Isacc LOJA Primary Care Provider [phone] Reason for Visit * Reason Onset Date Comments requesting call back 11/03/2024 Encounter Details Date Type Department Care Team ([facility] st Contact Info) Description 11/03/2024 Telephone [facility] MEDICINE [address] [place] [address] Name, MD Isacc [address] [place] [address] requesting call back Social History Tobacco Use [...] called to informed he is admiited at [facility] . He will call back when he's recovery from His Heart Surgery on 11/04/2024. Sending to Dr. Dion EDGAR. * Telephone Encounter - Isacc Silva - 11/03/2024 1:13 PM EDT Tc from pt requesting a call back with the phone number of where he is going to get his surgery. Nofurther details provided. Contact pt at [phone] documented in this encounter Plan of Treatment Upcoming Encounters Date Type Department Care Team (Late st Contact Info) Description 02/26/2025 9:00 AM EST Office Visit [facility] MEDICINE [address] [place] [address] Grant Ashley MD [address] [place] [address] 04/12/2025 3:00 PM EST Office Visit [facility] MEDICINE [address] [place] [address] documented as of this encounter Visit Diagnoses Not on filedocumented in this encounter Additional Health Concerns Assessment Noted Time PHQ-9 Depression Total Score: 0 09/19/19 25 9:22 AM EDT documented as of this encounter Care Teams Cone Machine Feeder Relationship Specialty Start Date End Date Name, [place] [address] PCP - General Family Medicine 11/03/18 documented as of this encounter
--- OUTSIDE RECORDS SUMMARY | 2025-02-24 17:06 | XMS_ITS | Encounter Summary ---
Author Organization [employer] Address [address] [facility] [address] 7t [place] [address] Care Team Providers Care Assistant Program Manager Name Role Phone Name, Isacc LOJA Primary Care Provider [phone] Encounter Details Date Type Department Care Team (Late st Contact Info) Description 11/12/2024 Orders Only [facility] MEDICINE [address] [place] [address] Elizabeth Munson, RN Social History Tobacco Use [...] Description 02/26/2025 9:00 AM EST Office Visit [facility] MEDICINE [address] [place] [address] Grant Ashley MD [address] [place] [address] 04/12/2025 3:00 PM EST Office Visit [address] [address] documented as of this encounter Visit Diagnoses Not on filedocumented in this encounter Additional Health Concerns Assessment Noted Time PHQ-9 Depression Total Score: 0 09/19/19 25 9:22 AM EDT documented as of this encounter Care Teams Assistant Program Manager Relationship Specialty Start Date End Date Name, MD Isacc [address] [place] [address] PCP - General Family Medicine 11/03/18 documented as of this encounter
--- OUTSIDE RECORDS SUMMARY | 2025-02-24 17:06 | XMS_ITS | Encounter Summary ---
Author Organization [facility] [employer] Address [address] [facility] 7t [place] [address] Care Team Providers Care Computer Network Specialist Name Role Phone Name, Isacc LOJA Primary Care Provider [phone] Reason for Visit * Reason Comments Med Refill Encounter Details Date Type Department Care Team ([facility] st Contact Info) Description 05/22/2024 Refill [facility] MEDICINE 230 [place], [place] [phone] Grant Ashley MD 230 [place], [place] [phone] Chronic low back pain, unspecified back pain [...] Description 02/26/2025 9:00 AM EST Office Visit [address] [address] Grant Ashley MD [address] [place] [address] 04/12/2025 3:00 PM EST Office Visit [address] [address] documented as of this encounter Visit Diagnoses Diagnosis Chronic low back pain, unspecified back pain laterality, unspecified whether sciatica present Chronic low back pain, unspecified back pain laterality, unspecified whether sciatica present- Primary documented in this encounter Additional Health Concerns Assessment Noted Time PHQ-9 Depression Total Score: 0 08/08/19 9:27 AM EDT documented as of this encounter Care Teams Computer Network Specialist Relationship Specialty Start Date End Date Name, MD Isacc [address] [place] [address] PCP - General Family Medicine 11/03/18 documented as of this encounter
--- OUTSIDE RECORDS SUMMARY | 2025-02-24 17:06 | XMS_ITS | Encounter Summary ---
Author Organization [employer] Address [address] [place] [address] 7 [place] [address] Care Team Providers Care Nuclear Equipment Sales Engineer Name Role Phone Name, Isacc LOJA Primary Care Provider [phone] Reason for Visit * Reason Comments Med Refill Encounter Details Date Type Department Care Team (Late Contact Info) Description 01/07/2023 Refill [facility] MEDICINE [address] [place] [phone] Name, MD Isacc [address] [place] [address] [phone] Social History Tobacco Use Types Packs/Day Years [...] Description 02/26/2025 9:00 AM EST Office Visit [facility] MEDICINE [address] [place] [address] [phone] Grant Ashley MD [address] [place] [address] [phone] 04/12/2025 3:00 PM EST Office Visit [facility] MEDICINE 230 [place] [address] documented as of this encounter Visit Diagnoses Not on filedocumented in this encounter Additional Health Concerns Assessment Noted Time PHQ-9 Depression Total Score: 6 03/21/20 22 10:54 AM EST documented as of this encounter Care Teams Nuclear Equipment Sales Engineer Relationship Specialty Start Date End Date Name, MD Isacc 230 [place] [address] PCP - General Family Medicine 11/03/18 documented as of this encounter
--- OUTSIDE RECORDS SUMMARY | 2025-02-24 17:06 | XMS_ITS | Encounter Summary ---
Author Organization [employer] Address [address] [facility] 7t [place] [address] Care Team Providers Care Custom Tailor Apprentice Name Role Phone Name, Isacc LOJA Primary Care Provider [phone] Encounter Details Date Type Department Care Team (Late st Contact Info) Description 03/13/2024 Orders Only [facility] [address] [place] [address] Provider, MD Zoey Social History Tobacco Use [...] Description 02/26/2025 9:00 AM EST Office Visit [address] [address] Grant Ashley MD [address] [place] [address] 04/12/2025 3:00 PM EST Office Visit [address] [address] documented as of this encounter Procedures Procedure [...] documented as of this encounter Care Teams Custom Tailor Apprentice Relationship Specialty Start Date End Date Name, MD Isacc [address] [place] [address] PCP - General Family Medicine 11/03/18 documented as of this encounter
--- OUTSIDE RECORDS SUMMARY | 2025-02-24 17:06 | XMS_ITS | Encounter Summary ---
Author Organization [employer] Address [address] [facility] 7t [place] [address] Care Team Providers Care Healthcare Or Medical Name Role Phone Name, Isacc LOJA Primary Care Provider [phone] Reason for Visit * Reason Onset Date Comments FYI 11/18/2024 Encounter Details Date Type Department Care Team ([facility] st Contact Info) Description 11/18/[address] [facility] MEDICINE 230 [place] [address] Name, MD Isacc [address] [place] [address] FYI Social History Tobacco Use Types Packs/Day [...] any questions you can contact pt at [phone]. (Tuvaluan Speaker) documented in this encounter Plan of Treatment Upcoming Encounters Date Type Department Care Team (Late st Contact Info) Description 02/26/2025 9:00 AM EST Office Visit [facility] MEDICINE [address] [place] [address] Grant Ashley MD [address] [place] [address] 04/12/2025 3:00 PM EST Office Visit [facility] MEDICINE [address] [place] [address] documented as of this encounter Visit Diagnoses Not on filedocumented in this encounter Additional Health Concerns Assessment Noted Time PHQ-9 Depression Total Score: 0 09/19/19 25 9:22 AM EDT documented as of this encounter Care Teams Healthcare Or Medical Relationship Specialty Start Date End Date Name, MD Isacc [address] [place] [address] PCP - General Family Medicine 11/03/18 documented as of this encounter
--- OUTSIDE RECORDS SUMMARY | 2025-02-24 17:06 | XMS_ITS | Encounter Summary ---
Author Organization [employer] Address [address] [facility] 7t [place] [address] Care Team Providers Care Test Lead Application Testing Name Role Phone Name, Isacc LOJA Primary Care Provider [phone] Reason for Visit * Reason Onset Date Comments Nurse Triage 08/01/2023 Encounter Details Date Type Department Care Team ([facility] st Contact Info) Description 08/01/2023 Telephone [facility] MEDICINE 230 [place] [address] Name, MD Isacc [address] [place] [address] Nurse Triage Social History Tobacco Use Types [...] t he electric, gas, oil or water [employer] threatened to shut off services in your [...] PM EDT No recent notes in [facility] for pt. T/C to pt for status check via [employer] #[id number]. Pt states he will not go to [...] of disposition, agrees to return to [facility] ED now. Will contact EMS for transport. [...] You become worse * Telephone Encounter - Garyvasu Hay - 08/01/2023 3:07 PM EDT Symptoms: Back Pain - Not From Injury, Leg Pain - Not From Injury, Neck Pain - Not From Injury Outcome: Talk to a nurse or provider within 15 minutes Reason: Can't walk (unless normally can't walk) Lao Speaker (accepted biomedical equipment tech) documented in this encounter Plan of Treatment Upcoming Encounters Date Type Department Care Team (Late st Contact Info) Description 02/26/2025 9:00 AM EST Office Visit [address] [address] Grant Ashley MD [address] [place] [address] 04/12/2025 3:00 PM EST Office Visit [address] [address] documented as of this encounter Visit Diagnoses Not on filedocumented in this encounter Additional Health Concerns Assessment Noted Time PHQ-9 Depression Total Score: 6 03/21/20 22 10:54 AM EST documented as of this encounter Care Teams Test Lead Application Testing Relationship Specialty Start Date End Date Name, MD Isacc [address] [place] [address] PCP - General Family Medicine 11/03/18 documented as of this encounter
--- OUTSIDE RECORDS SUMMARY | 2025-02-24 17:06 | XMS_ITS | Encounter Summary ---
Author Organization [employer] Address [address] [facility] 7t [place] [address] Care Team Providers Care Eap Consultant Name Role Phone Name, Isacc LOJA Primary Care Provider [phone] Reason for Visit * Reason Comments Med Refill Encounter Details Date Type Department Care Team ([facility] st Contact Info) Description 02/05/2023 Refill [facility] MEDICINE [address] [place], [place] [phone] Name, MD Isacc [address] [place] [address] Social History Tobacco Use Types Packs/Day Years [...] Description 02/26/2025 9:00 AM EST Office Visit [facility] MEDICINE [address] [place] [address] Grant Ashley MD [address] [place] [address] 04/12/2025 3:00 PM EST Office Visit [address] [address] documented as of this encounter Visit Diagnoses Not on filedocumented in this encounter Additional Health Concerns Assessment Noted Time PHQ-9 Depression Total Score: 6 03/21/20 22 10:54 AM EST documented as of this encounter Care Teams Eap Consultant Relationship Specialty Start Date End Date Name, MD Isacc [address] [place] [address] PCP - General Family Medicine 11/03/18 documented as of this encounter
--- OUTSIDE RECORDS SUMMARY | 2025-02-24 17:07 | XMS_ITS | Encounter Summary ---
Author Organization [employer] Address [address] [facility] 7t [place] [address] Care Team Providers Care Carburetor Rebuilder Name Role Phone Name, Isacc LOJA Primary Care Provider [phone] Reason for Visit * Reason Onset Date Comments Med Refill 10/05/2022 Encounter Details Date Type Department Care Team (Late st Contact Info) Description 10/05/2022 Telephone [facility] MEDICINE 230 [place], [place] [phone] Name, MD Isacc [address] [place] [address] Med Refill Social History Tobacco Use Types [...] Description 02/26/2025 9:00 AM EST Office Visit [address] [address] Grant Ashley MD [address] [place] [address] 04/12/2025 3:00 PM EST Office Visit [address] [address] documented as of this encounter Visit Diagnoses Not on filedocumented in this encounter Additional Health Concerns Assessment Noted Time PHQ-9 Depression Total Score: 6 03/21/20 22 10:54 AM EST documented as of this encounter Care Teams Carburetor Rebuilder Relationship Specialty Start Date End Date Name, MD Isacc [address] [place] [address] PCP - General Family Medicine 11/03/18 documented as of this encounter
--- OUTSIDE RECORDS SUMMARY | 2025-02-24 17:07 | XMS_ITS | Encounter Summary ---
Author Organization [employer] Address [address] [facility] 7t [place] [address] Care Team Providers Care Carbon Sequestration Plant Engineer Name Role Phone Name, Isacc LOJA Primary Care Provider [phone] Encounter Details Date Type Department Care Team (Late st Contact Info) Description 09/17/[address] [phone] Name, MD Isacc [address] [place] [address] [phone] Social History Tobacco Use Types Packs/Day Years [...] Description 02/26/2025 9:00 AM EST Office Visit [address] [phone] Grant Ashley MD [address] [place] [phone] 04/12/2025 3:00 PM EST Office Visit [address] [address] documented as of this encounter Procedures Procedure Name Priority Date/Time Associated Diagnosis Comments COLONOSCOPY Routine 02/06/2018 12:51 PM EDT documented in this encounter Results * Hm Colonoscopy (02/06/2018 12:51 PM EDT) Colonoscopy Normal Normal Narrative Rosalina Castro - 02/06/2018 12:51 PM EDT Recommended 5 years ( [facility]) Historical Provider HEALTH MAINTENANCE Final Result documented in this encounter Visit Diagnoses Not on filedocumented in this encounter Additional Health Concerns Assessment Noted Time PHQ-9 Depression Total Score: 6 03/21/20 22 10:54 AM EST documented as of this encounter Care Teams Carbon Sequestration Plant Engineer Relationship Specialty Start Date End Date Name, MD Isacc [address] [place] [address] PCP - General Family Medicine 11/03/18 documented as of this encounter
--- OUTSIDE RECORDS SUMMARY | 2025-02-24 17:07 | XMS_ITS | Encounter Summary ---
Author Organization [employer] Address [address] [facility] 7t [place] [address] Care Team Providers Care Professional Nursing Tutor Name Role Phone Name, Isacc LOJA Primary Care Provider [phone] Reason for Visit * Reason Comments Med Refill Encounter Details Date Type Department Care Team ([facility] st Contact Info) Description 12/04/2024 Refill [facility] MEDICINE [address] [place], [place] [phone] Grant Ashley MD 230 [place], [place] [phone] Chronic low back pain, unspecified back pain [...] Description 02/26/2025 9:00 AM EST Office Visit [facility] MEDICINE [address] [place] [address] Grant Ashley MD [address] [place] [address] 04/12/2025 3:00 PM EST Office Visit [address] [address] documented as of this encounter Visit Diagnoses Diagnosis Chronic low back pain, unspecified back pain laterality, unspecified whether sciatica present Chronic low back pain, unspecified back pain laterality, unspecified whether sciatica present- Primary documented in this encounter Additional Health Concerns Assessment Noted Time PHQ-9 Depression Total Score: 0 09/19/19 25 9:22 AM EDT documented as of this encounter Care Teams Professional Nursing Tutor Relationship Specialty Start Date End Date Name, MD Isacc [address] [place] [address] PCP - General Family Medicine 11/03/18 documented as of this encounter
--- OUTSIDE RECORDS SUMMARY | 2025-02-24 17:07 | XMS_ITS | Encounter Summary ---
Author Organization [employer] Address [address] [place] [address] 7t [place] [address] Care Team Providers Care Silviculture Teacher Name Role Phone Name, Isacc LOJA Primary Care Provider [phone] Reason for Visit * Reason Onset Date Comments Med Refill 11/05/2022 Encounter Details Date Type Department Care Team (Late st Contact Info) Description 11/05/2022 Telephone [facility] MEDICINE 230 [place], [place] [phone] Name, MD Isacc 230 [place] [address] Med Refill Social History Tobacco Use Types [...] 10 MG tablet to be sent to [facility]/pharmacy #[id number] - [place], [place] - [address] documented in this encounter Plan of Treatment Upcoming Encounters Date Type Department Care Team (Late st Contact Info) Description 02/26/2025 9:00 AM EST Office Visit [facility] MEDICINE [address] [place] [address] Grant Ashley MD [address] [place] [address] 04/12/2025 3:00 PM EST Office Visit [facility] MEDICINE [address] [place] [address] documented as of this encounter Visit Diagnoses Not on filedocumented in this encounter Additional Health Concerns Assessment Noted Time PHQ-9 Depression Total Score: 6 03/21/20 22 10:54 AM EST documented as of this encounter Care Teams Silviculture Teacher Relationship Specialty Start Date End Date Name, MD Isacc [address] [place] [phone] PCP - General Family Medicine 11/03/18 documented as of this encounter
--- OUTSIDE RECORDS SUMMARY | 2025-02-24 17:07 | XMS_ITS | Encounter Summary ---
Author Organization [employer] Address [address] [facility] 7t [place] [address] Care Team Providers Care Independent Living Instructor Name Role Phone Name, Isacc LOJA Primary Care Provider [phone] Reason for Visit * Reason Onset Date Comments Medicare Annual Wellness Visit Initial AWV shcheduled Encounter Details Date Type Department Care Team (Late st Contact Info) Description 02/24/2025 Telephone [facility] MEDICINE 230 [place], [place] [phone] Name, MD Isacc [address] [place] [address] Medicare Annual Wellness Visit Initial (AWV shcheduled) Social History Tobacco Use Types Packs/Day Years [...] the past 12 months, has t he [employer], gas, oil or water company threatened to [...] AM EDT documented as of this encounter Progress Notes * Sho Chase - 02/24/2025 2:20 PM EST CC Sho placed outbound call to patient for Annual Wellness Visit outreach. Patient's name and were confirmed. Patient educated on the purpose of Medicare Annual Wellness Visits and is agreeable to an appointment with provider. Insurance verified prior to scheduling. Patient scheduled for AWV appointment on 04/12/2024- at 3:00 pm with [facility] Appropriate screenings completed in anticipation ofappointment. Medicare Wellness Visit Health Risk Assessment was completed with the patient over thephone and scanned into patient's chart for review at the visit. Patient advised to bring to appointment a photo id and insurance card. Also advised to bring in all medications, including [id number]-tlohljl, vitamins, or supplements and any copies of Advance Directives and Health Care Proxy forms. Patient provided with education on contacting the Health Center with any questions or concerns prior tothe scheduled appointment. Patient educated on extended clinic hours on Saturday through Saturday, and Walk- In Urgent Care Located in [facility] of [facility]. Patient provided with after-hours line for [facility], , which offer night time triage service and option to transfer to technical marketing consultant provider if needed. Annual Wellness Visit letter will be mailed out to patient's address. documented in this encounter Plan of Treatment Upcoming Encounters Date Type Department Care Team ([facility] st Contact Info) Description 02/26/2025 9:00 AM EST Office Visit [facility] MEDICINE [address] [place] [phone] Grant Ashley MD 230 [place] [address] 04/12/2025 3:00 PM EST Office Visit [facility] MEDICINE 230 [place], [place] [phone] documented as of this encounter Goals Goal Patient Goal Type Associated Problems Recent Progress Patient-Stated? Author Help patients manage their type 2 diabetes Care Plan Help patients manage their type 2 diabetes Grant Hummel MD Weekly blood pressure task Care Plan Weekly blood pressure task No Grant Ashley MD Help patients manage their type 2 diabetes Care Plan Help patients manage their type 2 diabetes No Grant Ashley MD Patient has chronic kidney disease Care Plan Patient has chronic kidney disease Grant Hummel MD Weekly blood pressure task Care Plan Weekly blood pressure task Grant Hummel MD Patient has chronic kidney disease Care Plan Patient has chronic kidney disease Grant Hummel MD Weekly blood pressure task Care Plan Weekly blood pressure task [place] Weekly blood pressure task Care Plan Weekly blood pressure task [place] Patient has chronic kidney disease Care Plan Patient has chronic kidney disease [place] Patient has chronic kidney disease Care Plan Patient has chronic kidney disease [place] documented as of this encounter Visit Diagnoses Not on filedocumented in this encounter Additional Health Concerns Active Problems Noted Date [...] 02/24/2025 Patient has chronic kidney disease 02/24/2025 Assessment Noted Time PHQ-9 Depression Total Score: 0 09/19/19 25 9:22 AM EDT documented as of this encounter Care Teams Independent Living Instructor Relationship Specialty Start Date End Date Name, MD Isacc [address] [place] [address] PCP - General Family Medicine 11/03/18 documented as of this encounter
== END 2025-02-24 09:49 | disposition home or self-care (01) ==
LOC: HO.HUSH 09:12
PROVIDERS: PCP Internal Medicine Geriatric Medicine; Visit Provider Nurse Practitioner Family
DX: R33.9 Retention of urine, unspecified (principal); C64.2 Malignant neoplasm of left kidney, except renal pelvis; N28.1 Cyst of kidney, acquired; Z13.9 Encounter for screening, unspecified
CPT/HCPCS: 99214; G2211